=== PATIENT | female | born 1970 | race Caucasian/White ===

== ENCOUNTER 2017-06-04 15:44 | Inpatient (IN) | payer OTHER ==
[~2017-06-04] VITALS: Ht 160 cm; Wt 102.9 kg
[2017-06-04] MEDS ORDERED: SODIUM CHLORIDE 0.9% 1000ML 1,000 ML IV STA (15:54)
[2017-06-04] MEDS ORDERED: ONDANSETRON 8 MG/54 ML D5W IV STA (16:02)
[2017-06-04] MEDS ORDERED: HYDROmorphone INJ 1 MG/ML SYR IV PRN (16:15)
[2017-06-04] MEDS ORDERED: AMOX500C3 PO (16:19)
[2017-06-04] MEDS ORDERED: BND25 PO (16:19)
[2017-06-04] MEDS ORDERED: DICL50TA3 PO (16:19)
[2017-06-04] MEDS ORDERED: FURO-85 PO (16:19)
[2017-06-04] MEDS ORDERED: LISI-725 PO (16:19)
[2017-06-04] MEDS ORDERED: ATOR-22 PO (16:19)
[2017-06-04] MEDS ORDERED: ACET-1256 PO (16:21)
[2017-06-04 16:24] LABS: BASO % 0.3 %; BASO ABS # 0.04 K/uL (0-0.2); COMPLETE YES; EOS % 2.4 %; HEMATOCRIT 33.5 % (37-47); IG% 0.3 %; LYMPH % 17.1 %; MEAN CELL VOLUME 88.9 fL (80-100); MEAN CORPUSCULAR HGB CONC 34.9 g/dl (32-36); MEAN PLATELET VOLUME 9.8 fL (7.4-10.4); MONO % 4.9 %; PLATELET COUNT 318 K/uL (130-400); RED BLOOD COUNT 3.77 M/uL (4.2-5.4); WHITE BLOOD COUNT 14.02 K/uL (4.8-10.8)
[2017-06-04 16:41] LABS: ALT/SGPT 15 U/L (12-78); BLOOD UREA NITROGEN 54 mg/dl (7-18); BUN/CREATININE RATIO 13.2 (10-20); CALCIUM 10.1 mg/dl (8.5-10.1); CARBON DIOXIDE 25 mmol/L (21-32); CHLORIDE 101 mmol/L (98-107); GLUCOSE 154 mg/dl (70-99); POTASSIUM 4.1 mmol/L (3.5-5.1); SODIUM 135 mmol/L (136-145)
[2017-06-04 16:44] LABS: ALKALINE PHOSPHATASE 84 U/L (45-117); AST/SGOT 18 U/L (15-37)
[2017-06-04 16:45] LABS: URINE APPEARANCE CLEAR (CLEAR); URINE BILIRUBIN NEG (NEG); URINE COLOR YELLOW; URINE EPITHELIAL CELL AUTO >30 /lpf (0-5); URINE NITRITE NEG (NEG); URINE SPECIFIC GRAVITY 1.027 (1.000-1.030); UROBILINOGEN NEG (NEG); ZZUR CULT IF INDIC CLEAN CATCH NO
[2017-06-04 16:48] LABS: MANUAL MICROSCOPIC REQUIRED? NO; REVIEW REQ? NO
--- NOTE | 2017-06-04 17:25 | DIAGNOSTIC IMAGING REPORT ---
SOFT TISSUE NECK WITHOUT HISTORY: 46 years-old Female right lower dental infection, acute facial swelling COMPARISON: None available TECHNIQUE: Multiple axial CT images of the soft tissues of the neck were obtained without IV contrast. A dose lowering technique was used consistent with the principals of ALARA. FINDINGS: The nasopharynx, oropharynx and hypopharynx are patent. Parapharyngeal fat planes are symmetric without peritonsillar abscess. Multiple tonsilliths are seen bilaterally within the palatine tonsils. The submandibular and sublingual glands are unremarkable. There is mildly limited evaluation of the oral cavity secondary to streak artifact from dental amalgam hardware. Right lobe the thyroid is enlarged with a 1.2 x 0.7 cm slightly low attenuating nodule present. No pathologic-appearing adenopathy identified. No focal abscess is seen. Imaged lung apices are clear. Imaged intracranial structures demonstrate no gross abnormality. There is evidence of prior bilateral cataract repair. The mastoid air cells, middle ear cavities and imaged paranasal sinuses are clear. There is slight kyphotic curvature centered at C4-C5 with uncovertebral spurring and mild intervertebral disc space narrowing noted at this interspace. There is a small periapical cyst noted involving the left mandibular central incisor seen best on the sagittal MPR images no maxillary or mandibular erosions are identified. Mild degenerative changes involve the temporomandibular joints. No facial bone fracture identified. IMPRESSION: 1. Small periapical cyst involves the left mandibular central incisor without associated mandibular erosive changes or soft tissue abscess. 2. No adenopathy or focal soft tissue swelling. 3. Enlarged nodular right thyroid could be further evaluated with nonemergent outpatient follow-up ultrasound. 4. Mild degenerative changes at C4-C5. The above report was generated using voice recognition software. It may contain grammatical, syntax or spelling errors. Electronically signed by: Vaughn Dukes M.D. 06/04/2017 5:23 PM Dictated Date/Time: 06/04/2017 5:17 PM
--- NOTE | 2017-06-04 17:37 | DIAGNOSTIC IMAGING REPORT ---
ABD/PELVIS NO IV OR ORAL CONT HISTORY: 46 years-old Female upper abd pain, renal failure, on abx for dental infection COMPARISON: None available TECHNIQUE: Multiple axial CT images of the abdomen and pelvis were obtained without contrast. A dose lowering technique was used consistent with the principals of VIVIANE. FINDINGS: There is mild dependent bibasilar atelectasis. There is no pneumoperitoneum. The imaged inferior cardiac chambers are unremarkable trace pericardial effusion. Liver, spleen, gallbladder, pancreas and adrenal glands are within normal limits. There is a very atypical pattern of nodular perinephric edema which is oriented in a somewhat perpendicular distribution to the kidneys bilaterally. There is mild thickening of the perirenal fascia as well. Vascular calcifications are noted bilaterally involving the kidneys without definite renal calculi or hydronephrosis. Urinary bladder is unremarkable. Uterus and left adnexum are unremarkable. 2.6 x 1.9 cm cystic structure involves the right adnexum suggesting dominant follicle. There is mild atherosclerotic plaquing of the abdominal aorta. Periaortic lymph nodes are seen measuring up to 1.4 x 0.8 cm. Mildly prominent pericaval adenopathy is also seen, nonspecific. Small sliding-type hiatal hernia with partially intrathoracic stomach is noted. There is mild stranding along the proximal duodenum with apparent mild wall thickening adjacent mesenteric fat stranding. Mild yvette hepatis adenopathy is seen, 2.1 x 1.1 cm. There is no bowel obstruction. No evidence of acute appendicitis. Patient obesity is noted. The bones appear intact. IMPRESSION: 1. Mild circumferential wall thickening of the proximal duodenum with surrounding mesenteric fat stranding suggests duodenitis without obstruction. No significant inflammatory changes are seen surrounding the pancreas, however developing paraduodenal pancreatitis may have a similar appearance. Correlate with patient history and laboratory values. 2. Atypical nonspecific pattern of nodular perinephric edema oriented in a perpendicular distribution to the kidneys bilaterally without hydronephrosis or focal mass. 3. Mildly prominent periaortic, pericaval and yvette hepatis adenopathy is nonspecific and may be reactive. 4. 2.6 cm lesion of the right adnexum suggests dominant follicle. 5. Small sliding-type hiatal hernia with partially intrathoracic stomach. The above report was generated using voice recognition software. It may contain grammatical, syntax or spelling errors. Electronically signed by: Vaughn Dukes M.D. 06/04/2017 5:36 PM Dictated Date/Time: 06/04/2017 5:24 PM
--- NOTE | 2017-06-04 18:07 | EMERGENCY ROOM VISIT NOTE ---
History Report prepared by Chung: Manuel Walsh Under the Supervision of: Dr. Colin Ng M.D. First contact with patient: 15:54 Chief Complaint: ABDOMINAL PAIN Stated Complaint: STOMACH & TOOTH PAIN History of Present Illness The patient is a 46 year old female who presents to the Emergency Room with complaints of intermittent right jaw pain that started about a week ago. She rates her pain as a 6/10 in severity and reports that the pain radiates into her jaw, ear, and neck. She reports that she recently had crown surgery about a week ago. The patient admits that she had to had jaw sawed down. She states that since the surgery she has only been experiencing "twinges". The patient states that she went to the dentist at [facility] for a check up five days ago where she had an x-ray done. The patient states that the dentist gave her Clindamycin and pain medication since he thought she had an infection. She reports that she still had pain two days following her visit and went back two days ago. The patient states that she was then given Amoxicillin. She admits that she was still experiencing the stabbing sensation into her jaw intermittency. She states that the pain would be worsened if she laid down or ate something. She admits that she has been taking Tylenol for the pain. The patient states that starting yesterday, she started to experience abdominal pain and diarrhea. She admits that her episodes occur two to three times a day. She also reports episodes of vomiting and states that she has not been able to take her medications. The patient reports that she was fine this morning, but started to experience jaw pain around noon again. She denies prior abdominal pain or surgeries, headache, fevers, chills, diaphoresis, visual changes, neck pain, chest pain, breathing difficulties, nausea, back pain, melena, hematochezia, urinary symptoms, numbness, weakness, lymphadenopathy, rash, or other complaints. Source of History: patient Onset: a week ago Position: other (right jaw) Symptom Intensity: 6/10 Quality: stabbing Modifying Factors (Worsening): eating, other (laying down) Modifying Factors (Relieving): tylenol, other (pain medication) Associated Symptoms: + vomiting, + abdominal pain, + diarrhea Review of Systems See HPI for pertinent positives and negatives. A total of ten systems were reviewed and were otherwise negative. Past Medical & Surgical Medical Problems: (1) Diabetes (2) S/p dental crown (3) Tubal Surgical Problems: (1) H/O laparoscopy Family History Diabetes mellitus FH: myocardial infarction FHx: hyperlipidemia Hypertension Social History Smoking Status: Never Smoker Drug Use: none Marital Status: Housing Status: lives with family Occupation Status: employed Current/Historical Medications Scheduled Amoxicillin (Amoxil), 500 MG PO QID Atorvastatin (Lipitor), 20 MG PO QPM Diphenhydramine Hcl (Benadryl), 25 MG PO HS Furosemide (Lasix), 20 MG PO BID Lisinopril (Zestril), 20 MG PO DAILY Scheduled PRN Acetaminophen (Tylenol), 500-1,000 MG PO Q4 PRN for Pain Diclofenac (Voltaren), 50 MG PO TID PRN for Pain Allergies Coded Allergies: No Known Allergies (Verified , 06/04/17) Uncoded Allergies: N (Allergy, Unknown, 11/21/02) NO (Allergy, Unknown, 11/21/02) NONE (Allergy, Unknown, 11/21/02) Physical Exam Vital Signs Date Time Temp Pulse Resp B/P (MAP) Pulse Ox O2 Delivery O2 Flow Rate FiO2 06/04/17 17:19 63 16 108/66 98 Room Air 06/04/17 16:24 75 06/04/17 15:50 36.7 87 18 149/96 98 Room Air Physical Exam GENERAL: Awake, alert, uncomfortable appearing, in no distress HENT: Normocephalic, atraumatic. Oropharynx unremarkable. Mild swelling of right jaw. EYES: Normal conjunctiva. Sclera non-icteric. NECK: Supple. No nuchal rigidity. FROM. No JVD. RESPIRATORY: Clear to auscultation. CARDIAC: Regular rate, normal rhythm. Extremities warm and well perfused. Pulses equal. ABDOMEN: Soft, non-distended. Tenderness to palpation upon epigastric region. No rebound or guarding. No masses. RECTAL: Deferred. MUSCULOSKELETAL: Chest examination reveals no tenderness. The back is symmetrical on inspection without obvious abnormality. There is no CVA tenderness to palpation. No joint edema. LOWER EXTREMITIES: Calves are equal size bilaterally and non-tender. No edema. No discoloration. NEURO: Normal sensorium. No sensory or motor deficits noted. SKIN: No rash or jaundice noted. Medical Decision & Procedures ER Provider Diagnostic Interpretation: Radiology results as stated below per my review and radiologist interpretation SOFT TISSUE NECK WITHOUT HISTORY: 46 years-old Female right lower dental infection, acute facial swelling COMPARISON: None available TECHNIQUE: Multiple axial CT images of the soft tissues of the neck were obtained without IV contrast. A dose lowering technique was used consistent with the principals of VIVIANE. FINDINGS: The nasopharynx, oropharynx and hypopharynx are patent. Parapharyngeal fat planes are symmetric without peritonsillar abscess. Multiple tonsilliths are seen bilaterally within the palatine tonsils. The submandibular and sublingual glands are unremarkable. There is mildly limited evaluation of the oral cavity secondary to streak artifact from dental amalgam hardware. Right lobe the thyroid is enlarged with a 1.2 x 0.7 cm slightly low attenuating nodule present. No pathologic-appearing adenopathy identified. No focal abscess is seen. Imaged lung apices are clear. Imaged intracranial structures demonstrate no gross abnormality. There is evidence of prior bilateral cataract repair. The mastoid air cells, middle ear cavities and imaged paranasal sinuses are clear. There is slight kyphotic curvature centered at C4-C5 with uncovertebral spurring and mild intervertebral disc space narrowing noted at this interspace. There is a small periapical cyst noted involving the left mandibular central incisor seen best on the sagittal MPR images no maxillary or mandibular erosions are identified. Mild degenerative changes involve the temporomandibular joints. No facial bone fracture identified. IMPRESSION: 1. Small periapical cyst involves the left mandibular central incisor without associated mandibular erosive changes or soft tissue abscess. 2. No adenopathy or focal soft tissue swelling. 3. Enlarged nodular right thyroid could be further evaluated with nonemergent outpatient follow-up ultrasound. 4. Mild degenerative changes at C4-C5. The above report was generated using voice recognition software. It may contain grammatical, syntax or spelling errors. Electronically signed by: Vaughn Dukes M.D. 06/04/2017 5:23 PM Dictated Date/Time: 06/04/2017 5:17 PM ABD/PELVIS NO IV OR ORAL CONT HISTORY: 46 years-old Female upper abd pain, renal failure, on abx for dental infection COMPARISON: None available TECHNIQUE: Multiple axial CT images of the abdomen and pelvis were obtained without contrast. A dose lowering technique was used consistent with the principals of ALARA. FINDINGS: There is mild dependent bibasilar atelectasis. There is no pneumoperitoneum. The imaged inferior cardiac chambers are unremarkable trace pericardial effusion. Liver, spleen, gallbladder, pancreas and adrenal glands are within normal limits. There is a very atypical pattern of nodular perinephric edema which is oriented in a somewhat perpendicular distribution to the kidneys bilaterally. There is mild thickening of the perirenal fascia as well. Vascular calcifications are noted bilaterally involving the kidneys without definite renal calculi or hydronephrosis. Urinary bladder is unremarkable. Uterus and left adnexum are unremarkable. 2.6 x 1.9 cm cystic structure involves the right adnexum suggesting dominant follicle. There is mild atherosclerotic plaquing of the abdominal aorta. Periaortic lymph nodes are seen measuring up to 1.4 x 0.8 cm. Mildly prominent pericaval adenopathy is also seen, nonspecific. Small sliding-type hiatal hernia with partially intrathoracic stomach is noted. There is mild stranding along the proximal duodenum with apparent mild wall thickening adjacent mesenteric fat stranding. Mild yvette hepatis adenopathy is seen, 2.1 x 1.1 cm. There is no bowel obstruction. No evidence of acute appendicitis. Patient obesity is noted. The bones appear intact. IMPRESSION: 1. Mild circumferential wall thickening of the proximal duodenum with surrounding mesenteric fat stranding suggests duodenitis without obstruction. No significant inflammatory changes are seen surrounding the pancreas, however developing paraduodenal pancreatitis may have a similar appearance. Correlate with patient history and laboratory values. 2. Atypical nonspecific pattern of nodular perinephric edema oriented in a perpendicular distribution to the kidneys bilaterally without hydronephrosis or focal mass. 3. Mildly prominent periaortic, pericaval and yvette hepatis adenopathy is nonspecific and may be reactive. 4. 2.6 cm lesion of the right adnexum suggests dominant follicle. 5. Small sliding-type hiatal hernia with partially intrathoracic stomach. The above report was generated using voice recognition software. It may contain grammatical, syntax or spelling errors. Electronically signed by: Vaughn Dukes M.D. 06/04/2017 5:36 PM Dictated Date/Time: 06/04/2017 5:24 PM Laboratory Results 06/04/17 16:14 Red Blood Count 3.77, Mean Corpuscular Volume 88.9, Mean Corpuscular Hemoglobin 31.0, Mean Corpuscular Hemoglobin Concent 34.9, Mean Platelet Volume 9.8, Neutrophils (%) (Auto) 75.0, Lymphocytes (%) (Auto) 17.1, Monocytes (%) (Auto) 4.9, Eosinophils (%) (Auto) 2.4, Basophils (%) (Auto) 0.3, Neutrophils # (Auto) 10.53, Lymphocytes # (Auto) 2.40, Monocytes # (Auto) 0.68, Eosinophils # (Auto) 0.33, Basophils # (Auto) 0.04 06/04/17 16:14 Test 06/04/17 16:14 06/04/17 16:30 White Blood Count 14.02 K/uL (4.8-10.8) Red Blood Count 3.77 M/uL (4.2-5.4) Hemoglobin 11.7 g/dL (12.0-16.0) Hematocrit 33.5 % (37-47) Mean Corpuscular Volume 88.9 fL (80-100) Mean Corpuscular Hemoglobin 31.0 pg (25-34) Mean Corpuscular Hemoglobin Concent 34.9 g/dl (32-36) Platelet Count 318 K/uL (130-400) Mean Platelet Volume 9.8 fL (7.4-10.4) Neutrophils (%) (Auto) 75.0 % Lymphocytes (%) (Auto) 17.1 % Monocytes (%) (Auto) 4.9 % Eosinophils (%) (Auto) 2.4 % Basophils (%) (Auto) 0.3 % Neutrophils # (Auto) 10.53 K/uL (1.4-6.5) Lymphocytes # (Auto) 2.40 K/uL (1.2-3.4) Monocytes # (Auto) 0.68 K/uL (0.11-0.59) Eosinophils # (Auto) 0.33 K/uL (0-0.5) Basophils # (Auto) 0.04 K/uL (0-0.2) RDW Standard Deviation 38.9 fL (36.4-46.3) RDW Coefficient of Variation 12.0 % (11.5-14.5) Immature Granulocyte % (Auto) 0.3 % Immature Granulocyte # (Auto) 0.04 K/uL (0.00-0.02) Anion Gap 9.0 mmol/L (3-11) Est Creatinine Clear Calc Drug Dose 19.4 ml/min Estimated GFR () 14.1 Estimated GFR (Non- 12.2 BUN/Creatinine Ratio 13.2 (10-20) Calcium Level 10.1 mg/dl (8.5-10.1) Total Bilirubin 0.2 mg/dl (0.2-1) Direct Bilirubin < 0.1 mg/dl (0-0.2) Aspartate Amino Transf (AST/SGOT) 18 U/L (15-37) Alanine Aminotransferase (ALT/SGPT) 15 U/L (12-78) Alkaline Phosphatase 84 U/L (45-117) Total Protein 7.4 gm/dl (6.4-8.2) Albumin 3.2 gm/dl (3.4-5.0) Lipase 330 U/L (73-393) Urine Color YELLOW Urine Appearance CLEAR (CLEAR) Urine pH 5.0 (4.5-7.5) Urine Specific [place] 1.027 (1.000-1.030) Urine Protein TRACE (NEG) Urine Glucose (UA) NEG (NEG) Urine Ketones NEG (NEG) Urine Occult Blood NEG (NEG) Urine Nitrite NEG (NEG) Urine Bilirubin NEG (NEG) Urine Urobilinogen NEG (NEG) Urine Leukocyte Esterase SMALL (NEG) Urine WBC (Auto) 5-10 /hpf (0-5) Urine RBC (Auto) 0-4 /hpf (0-4) Urine Hyaline Casts (Auto) 1-5 /lpf (0-5) Urine Epithelial Cells (Auto) >30 /lpf (0-5) Urine Bacteria (Auto) NEG (NEG) Laboratory results reviewed by me Medications Administered Medications (Trade) Dose Ordered Sig/[place]ad Route Start Time Stop Time Status Last Admin Dose Admin Sodium Chloride 1,000 ml @ 999 mls/hr Q1H1M STAT IV 06/04/17 15:54 06/04/17 16:54 DC 06/04/17 16:19 999 MLS/HR Hydromorphone HCl (Dilaudid Inj) 1 mg Q15M PRN IV 06/04/17 16:15 06/18/17 16:14 06/04/17 16:22 1 MG Ondansetron HCl (Zofran 8mg Iv) 8 mg NOW STAT IV 06/04/17 16:02 06/04/17 16:07 DC 06/04/17 16:23 8 MG ECG Findings: no ectopy ED Course 1554: Ordered Sodium Chloride 1000 ml @ 999 mls/hr IV. 1557: The patient was evaluated in room A12B. A complete history and physical exam was performed. 1602: Ordered Ondansetron HCl 8 mg IV. 1615: Ordered Dilaudid Injection 1 mg IV. 1722: I reevaluated the patient and she is feeling better. I discussed the results and treatment plan. He agrees to further evaluation. 1727: I discussed the patients case with Dr. Jane [facility] Hospitalist. He understands the patients condition and agrees to accept the patient. The patient will be further evaluated. Medical Decision Triage Nursing notes reviewed. The patient's presentation and history were concerning for a dental infection, recent antibiotic use, nausea, vomiting, and abdominal pain. Etiologies such as C. difficile infection, dental abscess, colitis, appendicitis , diverticulitis, obstruction, inflammatory bowel disease, renal colic, PUD, biliary pathology, pancreatitis, mesenteric ischemia, aortic pathology, infections, genitourinary, UTI, perforated viscus, as well as others were entertained. The patient was evaluated. She was hydrated. She was treated Zofran and Dilaudid. She felt better with this. Imaging was ordered. The blood work revealed a mild leukocytosis. The patient's renal panel revealed acute renal failure with a creatinine of 4.1. Her electrolytes were unremarkable. Urinalysis did not show signs of infection. CT scan was performed and findings noted as above. The patient will need further evaluation and management in the hospital. [facility] The patient was evaluated in the Emergency Room for further treatment. Medication Reconcilliation Current Medication List: was personally reviewed by me Blood Pressure Screening Patient's blood pressure: Elevated blood pressure Blood pressure disposition: Referred to PCP Consults Time Called: 1726 Consulting Physician: Dr. Jane [facility] Hospitalist Returned Call: [phone] I discussed the patients case with Julia Coles. He understands the patients condition and agrees to accept the patient. The patient will be further evaluated. Impression Primary Impression: Acute renal failure Additional Impressions: Dentalgia Upper abdominal pain Duodenitis Scribe Attestation The scribe's documentation has been prepared under my direction and personally reviewed by me in its entirety. I confirm that the note above accurately reflects all work, treatment, procedures, and medical decision making performed by me. Departure Information Dispostion Being Evaluated By Hospitalist Referrals Dorene Trotter D.O. (PCP) Patient Instructions [facility] Problem Qualifiers
[2017-06-04] MEDS ORDERED: INSPMPNVLG (18:29)
[2017-06-04] MEDS ORDERED: MoRPHine SULFATE 4 MG/ML 1 ML CARP\\VIAL IV PRN (18:30)
[2017-06-04] MEDS ORDERED: NovoLOG INSULIN PUMP SCH (18:30)
[2017-06-04] MEDS ORDERED: ONDANSETRON INJ 2 MG/ML 2 ML VIAL IV PRN (18:30)
--- NOTE | 2017-06-04 18:54 | History and Physical ---
History & Physical Date & Time of Service: Jun 04, 2017 at 18:32 Chief Complaint: Stomach & Tooth Pain Primary Care Physician: Dorene Trotter D.O. History of Present Illness Source: patient, spouse, clinic records, hospital records 46 yo F with CKD Stage III with baseline creatinine around 2 presents with one week of nausea, vomiting and severe tooth pain on her lower right mandible. The pain radiates up into her ear area. She had a root canal many months ago for a tooth infection in that spot and then underwent a crown placement 2-3 months ago. She was doing well until one week ago when she developed severe pain. She went back to the dentist and was examined and placed on clindamycin initially. After two days, she wasn't feeling any better and called back and was put on Amoxicillin instead. Shortly after this she developed nausea and vomiting and couldn't tolerate pills or much food. However, she has been to the [place] a couple of times this week and was able to eat a hoagie and some gas station food from [facility] [employer] in the last 48 hours. She reports vomiting and having some abdominal pain and diarrhea 2-3 times in the past 24 hours. She denies fevers or chills, has no ear pain, fullness or hearing loss, denies sore throat, eye symptoms, chest pain or shortness of breath. She has no neck swelling or pain present. She does report a mild frontal headache this morning which is now resolved. She denies any UTI symptoms of flank pain. She can't point to one spot where she has abdominal tenderness she just moreso states that she feels poorly because of the nausea. She denies blood in her stool. She is a diabetic on an insulin pump and reports that several days ago her sugars were in the 500s, but they have since come back into the normal range. She denies any cough or congestion. She reports having stopped her Lasix 5 days ago which is something she has taken over the past year for foot swelling. She also reports being put on synthroid 25 for a short time by Dr. Iyer, her inspector technician, but states she stopped it "because it was making me pee too much." Past Medical/Surgical History Medical Problems: (1) CKD (chronic kidney disease) stage 3, GFR 30-59 ml/min Status: Chronic (2) Diabetes Status: Chronic (3) HTN (hypertension) Status: Chronic (4) Hyperlipidemia Status: Chronic (5) Infection of tooth Permanent Comment: s/p root canal Status: Chronic (6) Obesity Status: Chronic (7) Retinopathy Status: Chronic (8) Tubal Status: Resolved (9) Tubal Status: Chronic (10) Vitamin D deficiency Status: Chronic Surgical Problems: (1) H/O dilation and curettage Status: Chronic (2) H/O laparoscopy Status: Resolved (3) History of arthroplasty of left knee Status: Chronic Family History Diabetes mellitus FH: myocardial infarction FHx: hyperlipidemia Hypertension Social History Smoking Status: Never Smoker Smokeless Tobacco Use: No Drug Use: none Marital Status: Occupational Status: employed Immunizations History of Influenza Vaccine: Yes Influenza Vaccine Date: Aug 19, 2016 History of Tetanus Vaccine?: Yes Tetanus Immunization Date: Oct 30, 2008 History of Pneumococcal: Yes Pneumococcal Date: Oct 30, 2008 History of Hepatitis B Vaccine: No Multi-Drug Resistant Organisms History of MDRO: No Allergies Coded Allergies: No Known Allergies (Verified , 06/04/17) Uncoded Allergies: N (Allergy, Unknown, 11/21/02) NO (Allergy, Unknown, 11/21/02) NONE (Allergy, Unknown, 11/21/02) Home Medications Scheduled Amoxicillin (Amoxil), 500 MG PO QID Atorvastatin (Lipitor), 20 MG PO QPM Diphenhydramine Hcl (Benadryl), 25 MG PO HS Furosemide (Lasix), 20 MG PO BID Insulin Aspart (novoLOG INSULIN PUMP ), 1 EA N/A UD Lisinopril (Zestril), 20 MG PO DAILY Scheduled PRN Acetaminophen (Tylenol), 500-1,000 MG PO Q4 PRN for Pain Diclofenac (Voltaren), 50 MG PO TID PRN for Pain Review of Systems At least ten systems reviewed and negative except as indicated in HPI. Physical Exam Vital Signs Date Time Temp Pulse Resp B/P (MAP) Pulse Ox O2 Delivery O2 Flow Rate FiO2 06/04/17 17:19 63 16 108/66 98 Room Air 06/04/17 16:24 75 06/04/17 15:50 36.7 87 18 149/96 98 Room Air GEN: Obese, in no acute distress, alert and appropriate HEENT: NC/AT, pupils are equal and round bilaterally, normal sclerae,MMM. Pharynx nonacute. No peridontal inflammation or drainage present. No TTP of cheek, TMJ or submandibular space. No LAD, no sinus TTP. Normal tongue. CARDIO: reg rate, S1/2 heard without m/g/r LUNGS: CTA bilaterally, no crackles, rales or wheezes, good diaphragmatic excursion ABD: soft, non-tender, non-distended, no rebound or guarding, no CVA tenderness , +BS EXTREMITY: RP and DP palpable 2+ bilat, no LE swelling or edema, extremities are warm and well-perfused NEURO: CN 2-12 grossly intact, no gross focal deficits. MUSC: 5/5 strength throughout, no focal deficits SKIN: warm and dry Diagnostics Laboratory Results 06/04/17 16:14 Red Blood Count 3.77, Mean Corpuscular Volume 88.9, Mean Corpuscular Hemoglobin 31.0, Mean Corpuscular Hemoglobin Concent 34.9, Mean Platelet Volume 9.8, Neutrophils (%) (Auto) 75.0, Lymphocytes (%) (Auto) 17.1, Monocytes (%) (Auto) 4.9, Eosinophils (%) (Auto) 2.4, Basophils (%) (Auto) 0.3, Neutrophils # (Auto) 10.53, Lymphocytes # (Auto) 2.40, Monocytes # (Auto) 0.68, Eosinophils # (Auto) 0.33, Basophils # (Auto) 0.04 06/04/17 16:14 Test 06/04/17 16:14 06/04/17 16:30 White Blood Count 14.02 K/uL (4.8-10.8) Red Blood Count 3.77 M/uL (4.2-5.4) Hemoglobin 11.7 g/dL (12.0-16.0) Hematocrit 33.5 % (37-47) Mean Corpuscular Volume 88.9 fL (80-100) Mean Corpuscular Hemoglobin 31.0 pg (25-34) Mean Corpuscular Hemoglobin Concent 34.9 g/dl (32-36) Platelet Count 318 K/uL (130-400) Mean Platelet Volume 9.8 fL (7.4-10.4) Neutrophils (%) (Auto) 75.0 % Lymphocytes (%) (Auto) 17.1 % Monocytes (%) (Auto) 4.9 % Eosinophils (%) (Auto) 2.4 % Basophils (%) (Auto) 0.3 % Neutrophils # (Auto) 10.53 K/uL (1.4-6.5) Lymphocytes # (Auto) 2.40 K/uL (1.2-3.4) Monocytes # (Auto) 0.68 K/uL (0.11-0.59) Eosinophils # (Auto) 0.33 K/uL (0-0.5) Basophils # (Auto) 0.04 K/uL (0-0.2) RDW Standard Deviation 38.9 fL (36.4-46.3) RDW Coefficient of Variation 12.0 % (11.5-14.5) Immature Granulocyte % (Auto) 0.3 % Immature Granulocyte # (Auto) 0.04 K/uL (0.00-0.02) Anion Gap 9.0 mmol/L (3-11) Est Creatinine Clear Calc Drug Dose 19.4 ml/min Estimated GFR () 14.1 Estimated GFR (Non- 12.2 BUN/Creatinine Ratio 13.2 (10-20) Calcium Level 10.1 mg/dl (8.5-10.1) Total Bilirubin 0.2 mg/dl (0.2-1) Direct Bilirubin < 0.1 mg/dl (0-0.2) Aspartate Amino Transf (AST/SGOT) 18 U/L (15-37) Alanine Aminotransferase (ALT/SGPT) 15 U/L (12-78) Alkaline Phosphatase 84 U/L (45-117) Total Protein 7.4 gm/dl (6.4-8.2) Albumin 3.2 gm/dl (3.4-5.0) Lipase 330 U/L (73-393) Urine Color YELLOW Urine Appearance CLEAR (CLEAR) Urine pH 5.0 (4.5-7.5) Urine Specific [place] 1.027 (1.000-1.030) Urine Protein TRACE (NEG) Urine Glucose (UA) NEG (NEG) Urine Ketones NEG (NEG) Urine Occult Blood NEG (NEG) Urine Nitrite NEG (NEG) Urine Bilirubin NEG (NEG) Urine Urobilinogen NEG (NEG) Urine Leukocyte Esterase SMALL (NEG) Urine WBC (Auto) 5-10 /hpf (0-5) Urine RBC (Auto) 0-4 /hpf (0-4) Urine Hyaline Casts (Auto) 1-5 /lpf (0-5) Urine Epithelial Cells (Auto) >30 /lpf (0-5) Urine Bacteria (Auto) NEG (NEG) Results Past 24 Hours Test 06/04/17 16:14 06/04/17 16:30 Range/Units White Blood Count 14.02 4.8-10.8 K/uL Red Blood Count 3.77 4.2-5.4 M/uL Hemoglobin 11.7 12.0-16.0 g/dL Hematocrit 33.5 37-47 % Mean Corpuscular Volume 88.9 80-100 fL Mean Corpuscular Hemoglobin 31.0 25-34 pg Mean Corpuscular Hemoglobin Concent 34.9 32-36 g/dl Platelet Count 318 130-400 K/uL Mean Platelet Volume 9.8 7.4-10.4 fL Neutrophils (%) (Auto) 75.0 % Lymphocytes (%) (Auto) 17.1 % Monocytes (%) (Auto) 4.9 % Eosinophils (%) (Auto) 2.4 % Basophils (%) (Auto) 0.3 % Neutrophils # (Auto) 10.53 1.4-6.5 K/uL Lymphocytes # (Auto) 2.40 1.2-3.4 K/uL Monocytes # (Auto) 0.68 0.11-0.59 K/uL Eosinophils # (Auto) 0.33 0-0.5 K/uL Basophils # (Auto) 0.04 0-0.2 K/uL RDW Standard Deviation 38.9 36.4-46.3 fL RDW Coefficient of Variation 12.0 11.5-14.5 % Immature Granulocyte % (Auto) 0.3 % Immature Granulocyte # (Auto) 0.04 0.00-0.02 K/uL Sodium Level 135 136-145 mmol/L Potassium Level 4.1 3.5-5.1 mmol/L Chloride Level 101 98-107 mmol/L Carbon Dioxide Level 25 21-32 mmol/L Anion Gap 9.0 3-11 mmol/L Blood Urea Nitrogen 54 7-18 mg/dl Creatinine 4.10 0.60-1.20 mg/dl Est Creatinine Clear Calc Drug Dose 19.4 ml/min Estimated GFR () 14.1 Estimated GFR (Non- 12.2 BUN/Creatinine Ratio 13.2 10-20 Random Glucose 154 70-99 mg/dl Calcium Level 10.1 8.5-10.1 mg/dl Total Bilirubin 0.2 0.2-1 mg/dl Direct Bilirubin < 0.1 0-0.2 mg/dl Aspartate Amino Transf (AST/SGOT) 18 15-37 U/L Alanine Aminotransferase (ALT/SGPT) 15 12-78 U/L Alkaline Phosphatase 84 45-117 U/L Total Protein 7.4 6.4-8.2 gm/dl Albumin 3.2 3.4-5.0 gm/dl Lipase 330 73-393 U/L Urine Color YELLOW Urine Appearance CLEAR CLEAR Urine pH 5.0 4.5-7.5 Urine Specific [place] 1.027 1.000-1.030 Urine Protein TRACE NEG Urine Glucose (UA) NEG NEG Urine Ketones NEG NEG Urine Occult Blood NEG NEG Urine Nitrite NEG NEG Urine Bilirubin NEG NEG Urine Urobilinogen NEG NEG Urine Leukocyte Esterase SMALL NEG Urine WBC (Auto) 5-10 0-5 /hpf Urine RBC (Auto) 0-4 0-4 /hpf Urine Hyaline Casts (Auto) 1-5 0-5 /lpf Urine Epithelial Cells (Auto) >30 0-5 /lpf Urine Bacteria (Auto) NEG NEG Diagnostic Radiology ABD/PELVIS NO IV OR ORAL CONT HISTORY: 46 years-old Female upper abd pain, renal failure, on abx for dental infection COMPARISON: None available TECHNIQUE: Multiple axial CT images of the abdomen and pelvis were obtained without contrast. A dose lowering technique was used consistent with the principals of VIVIANE. FINDINGS: There is mild dependent bibasilar atelectasis. There is no pneumoperitoneum. The imaged inferior cardiac chambers are unremarkable trace pericardial effusion. Liver, spleen, gallbladder, pancreas and adrenal glands are within normal limits. There is a very atypical pattern of nodular perinephric edema which is oriented in a somewhat perpendicular distribution to the kidneys bilaterally. There is mild thickening of the perirenal fascia as well. Vascular calcifications are noted bilaterally involving the kidneys without definite renal calculi or hydronephrosis. Urinary bladder is unremarkable. Uterus and left adnexum are unremarkable. 2.6 x 1.9 cm cystic structure involves the right adnexum suggesting dominant follicle. There is mild atherosclerotic plaquing of the abdominal aorta. Periaortic lymph nodes are seen measuring up to 1.4 x 0.8 cm. Mildly prominent pericaval adenopathy is also seen, nonspecific. Small sliding-type hiatal hernia with partially intrathoracic stomach is noted. There is mild stranding along the proximal duodenum with apparent mild wall thickening adjacent mesenteric fat stranding. Mild yvette hepatis adenopathy is seen, 2.1 x 1.1 cm. There is no bowel obstruction. No evidence of acute appendicitis. Patient obesity is noted. The bones appear intact. IMPRESSION: 1. Mild circumferential wall thickening of the proximal duodenum with surrounding mesenteric fat stranding suggests duodenitis without obstruction. No significant inflammatory changes are seen surrounding the pancreas, however developing paraduodenal pancreatitis may have a similar appearance. Correlate with patient history and laboratory values. 2. Atypical nonspecific pattern of nodular perinephric edema oriented in a perpendicular distribution to the kidneys bilaterally without hydronephrosis or focal mass. 3. Mildly prominent periaortic, pericaval and yvette hepatis adenopathy is nonspecific and may be reactive. 4. 2.6 cm lesion of the right adnexum suggests dominant follicle. 5. Small sliding-type hiatal hernia with partially intrathoracic stomach. The above report was generated using voice recognition software. It may contain grammatical, syntax or spelling errors. SOFT TISSUE NECK WITHOUT HISTORY: 46 years-old Female right lower dental infection, acute facial swelling COMPARISON: None available TECHNIQUE: Multiple axial CT images of the soft tissues of the neck were obtained without IV contrast. A dose lowering technique was used consistent with the principals of ALARA. FINDINGS: The nasopharynx, oropharynx and hypopharynx are patent. Parapharyngeal fat planes are symmetric without peritonsillar abscess. Multiple tonsilliths are seen bilaterally within the palatine tonsils. The submandibular and sublingual glands are unremarkable. There is mildly limited evaluation of the oral cavity secondary to streak artifact from dental amalgam hardware. Right lobe the thyroid is enlarged with a 1.2 x 0.7 cm slightly low attenuating nodule present. No pathologic-appearing adenopathy identified. No focal abscess is seen. Imaged lung apices are clear. Imaged intracranial structures demonstrate no gross abnormality. There is evidence of prior bilateral cataract repair. The mastoid air cells, middle ear cavities and imaged paranasal sinuses are clear. There is slight kyphotic curvature centered at C4-C5 with uncovertebral spurring and mild intervertebral disc space narrowing noted at this interspace. There is a small periapical cyst noted involving the left mandibular central incisor seen best on the sagittal MPR images no maxillary or mandibular erosions are identified. Mild degenerative changes involve the temporomandibular joints. No facial bone fracture identified. IMPRESSION: 1. Small periapical cyst involves the left mandibular central incisor without associated mandibular erosive changes or soft tissue abscess. 2. No adenopathy or focal soft tissue swelling. 3. Enlarged nodular right thyroid could be further evaluated with nonemergent outpatient follow-up ultrasound. 4. Mild degenerative changes at C4-C5. Impression Assessment and Plan 46 yo F with CKD Stage III presents with acute tooth pain and nausea, vomiting and diarrhea in the setting of lisinopril, lasix and diclofenac use. Admitted for acute renal failure 1. Acute renal failure-multifactorial with dehydration from vomiting, lasix use , lisinopril use and diclofenac use in recent days to control the pain. Will continue with IVF, bowel rest/clears if tolerated, antiemetics, T3 or morphine for severe pain (avoid NSAIDs), hold lisinopril and Lasix. Will consult Nephrology who sees her as outpatient with atypical finding on CT scan. Appreciate thoughts on this. 2. Acute gastroenteritis-uncertain cause but also likely multifactorial in setting of LIZZY and recent fair food. Duodenitis seen on CT scan but no pain on exam. As above, cont with supportive care and clear liquids at this time 3. DMI-on insulin pump and well controlled. Contacted pharmacy who is aware she will be using this as inpatient. 4. HLP-cont statin 5. Chronic insomnia-uses Benadryl 25mg every night, cont while inpatient 6. Thyroid fummgl-jyxuse-by with outpatient ultrasound DVT proph-heparin FULL CODE Dispo-at least two midnights. Kaylin Melendez DO [facility] Med/Surg Resuscitation Status FULL RESUSCITATION VTE Prophylaxis VTE Risk Assessment Done? Y/N: Yes Risk Level: Moderate Given or contraindicated: Unfractionated heparin SQ
[2017-06-04 19:39] LABS: INR 0.9 (0.9-1.1); PARTIAL THROMBOPLASTIN RATIO 0.9; PROTHROMBIN TIME (PATIENT) 9.7 SECONDS (9.0-12.0)
[2017-06-04] MEDS ORDERED: GLUCOSE 10 TABS/TUBE PO PRN (20:30)
[2017-06-04] MEDS ORDERED: GLUCAGON FOR INJ 1 MG VIAL SQ PRN (20:30)
[2017-06-04] MEDS ORDERED: DEXTROSE 50% 50 ML SYR IV PRN (20:30)
[2017-06-04] MEDS ORDERED: GLUCOSE 40% GEL 15 GM TUBE PO PRN (20:30)
[2017-06-04] MEDS ORDERED: INSULIN ASPART 100 UNITS/ML VIAL SC PRN ×2 (20:30→23:15)
[2017-06-04] MEDS: NovoLOG INSULIN PUMP SCH (21:00)
[2017-06-04] MEDS: SODIUM CHLORIDE 0.9% 1000ML 1,000 ML IV SCH (21:01)
[2017-06-04] MEDS: ATORVASTATIN 20 MG TAB PO SCH (21:04)
[2017-06-04 21:16] VITALS: BP 93/66; PULSE 73; TEMP 36.4; O2SAT 96
[2017-06-04 21:26] VITALS: Ht 160 cm; Wt 102.9 kg
[2017-06-04 21:27] VITALS: BP 93/66; PULSE 73; TEMP 36.4; O2SAT 98
[2017-06-04] MEDS: HEPARIN SOD 5000 UNIT/0.5 ML CARP SQ SCH (22:22)
[2017-06-04] MEDS: ACETAMINOPHEN/CODEINE 300/30MG TAB PO PRN (22:24)
[2017-06-05 00:08] VITALS: BP 118/77; PULSE 75; TEMP 36.7; O2SAT 97
[2017-06-05 03:44] VITALS: BP 93/61; PULSE 73; TEMP 36.6; O2SAT 97
[2017-06-05] MEDS: SODIUM CHLORIDE 0.9% 1000ML 1,000 ML IV SCH ×2 (04:15→17:13)
[2017-06-05] MEDS: HEPARIN SOD 5000 UNIT/0.5 ML CARP SQ SCH ×3 (06:28→21:50)
[2017-06-05] MEDS: ACETAMINOPHEN/CODEINE 300/30MG TAB PO PRN (06:30)
[2017-06-05 06:36] LABS: HEMATOCRIT 29.1 % (37-47); MEAN CELL VOLUME 90.1 fL (80-100); MEAN CORPUSCULAR HGB CONC 34.4 g/dl (32-36); MEAN PLATELET VOLUME 10.1 fL (7.4-10.4); PLATELET COUNT 256 K/uL (130-400); RED BLOOD COUNT 3.23 M/uL (4.2-5.4); WHITE BLOOD COUNT 9.96 K/uL (4.8-10.8)
[2017-06-05 06:53] LABS: BUN/CREATININE RATIO 13.1 (10-20); CALCIUM 8.5 mg/dl (8.5-10.1); MAGNESIUM 1.7 mg/dl (1.8-2.4)
[2017-06-05 08:03] VITALS: BP 97/65; PULSE 62; TEMP 36.7; O2SAT 96
[2017-06-05] MEDS: NovoLOG INSULIN PUMP SCH ×4 (08:21→20:43)
[2017-06-05] MEDS: MAGNESIUM SULFATE 1GM / D5W 1 GM in PREMIXED IN D5W 100 ML IV SCH ×2 (10:39→11:56)
[2017-06-05 11:30] VITALS: BP 101/67; PULSE 73; TEMP 36.7; O2SAT 97
[2017-06-05] MEDS ORDERED: BENZOCAINE 20% (ORAJEL) 11.9 GM TUBE MT PRN (13:30)
[2017-06-05] MEDS: ACETAMINOPHEN 500 MG TAB PO SCH ×2 (15:18→21:48)
[2017-06-05 15:41] VITALS: BP 90/62; PULSE 69; TEMP 36.8; O2SAT 95
--- NOTE | 2017-06-05 17:06 | NEPHROLOGY CONSULTATION ---
DATE OF CONSULTATION: 06/05/2017 ATTENDING OF RECORD: Dr. Melendez. REASON FOR CONSULTATION: LIZZY. HISTORY OF PRESENT ILLNESS: This is a 46-year-old female with CKD stage III from diabetes with a baseline creatinine around 2 who has been dealing with a tooth pain for the past several weeks, initially treated with clindamycin and then switched to amoxicillin. Patient was having some nausea, fatigue, pain in the jaw and mild diarrhea. The pain was not improving and came in to Emergency Room yesterday. The patient did stop her diuretic during this time and was found to have a creatinine of 4.1. The patient treated with IV fluids and her creatinine this morning was down to 3. The patient is comfortable, was on clear liquid diet, which has been advanced and had a hamburger this afternoon and is starting to feel better. Her magnesium level was mildly low at 1.7, was repleted with magnesium supplementation today. Albumin level was low at 3.2. White count was elevated at 14,000 and is down to 9.96. Abdominal pelvis CT was done which showed mild circumferential wall thickening of the proximal duodenum with surrounding mesenteric fat stranding suggesting duodenitis without obstruction. There was an apical and nonspecific pattern of nodular perinephric edema without hydronephrosis or focal mass. There is a 2.6 cm right adnexal cyst and a dominant follicle as well as a hiatal hernia. The patient denies taking any pain medication other than Tylenol and diclofenac. REVIEW OF SYSTEMS: No fevers, no chills. Positive jaw pain. No shortness of breath. No chest pain. Positive nausea, no vomiting. Positive mild diarrhea. Positive upset stomach. No dysuria or hematuria. No rash or itching, no blurry vision, no dysphagia. All other review of systems otherwise negative. PAST MEDICAL HISTORY: CKD stage III, diabetes, hypertension, hyperlipidemia. PAST SURGICAL HISTORY: Left knee scope, D&C. FAMILY HISTORY: Significant for diabetes. SOCIAL HISTORY: No smoking, no alcohol, no drugs. and lives at home. HOME MEDICATIONS: Significant for Lasix which she stopped for the past week as well as lisinopril, which she is still taking. CURRENT MEDICATIONS: Heparin 5000 units subQ q. 8, Lipitor 20 mg at night. PHYSICAL EXAMINATION: VITAL SIGNS: Temperature 36.8, pulse 69, respiratory rate 18, blood pressure 90/62, satting 95% on room air. GENERAL: Awake, alert, oriented x3. EYES: No scleral icterus. HEENT: Mucous membranes are dry. NECK: Supple. PULMONARY: Clear to auscultation. CARDIAC: Regular rate and rhythm. ABDOMEN: Bowel sounds positive, soft, nontender. EXTREMITIES: No clubbing, cyanosis or edema. NEUROLOGICALLY: Nonfocal. DERM: No rash or ulcers noted. LABORATORY DATA: White count is 9, H&H 10 and 29, platelet count is 256. Sodium is 139, potassium is 4, chloride is 108, bicarb is 23, BUN is 39, creatinine is 3, glucose 99, calcium 8.5, mag is 1.7. INR is 0.9. UA with small leukocyte esterase, 5-10 wbc's, trace protein. IMPRESSION AND PLAN: 1. Acute kidney injury on the setting of chronic kidney disease stage III with a creatinine that is improving with IV fluids. IV fluids have been stopped. I feel the patient would benefit from another liter of IV fluids. We will restart normal saline at 80 mL an hour and recheck lab work tomorrow. Likely will be able stop IV fluids tomorrow. The patient appears to be eating and drinking better. Currently, off antibiotics, defer antibiotic management to primary hospitalist. For now, would continue low rate of IV fluids and monitor for signs of volume overload. Lungs are clear to auscultation and not requiring any oxygen at this time, would continue normal saline and repeat lab work in the morning. I appreciate the consultation. EVANGELINA
[2017-06-05 19:25] VITALS: BP 118/76; PULSE 73; TEMP 36.8; O2SAT 96
[2017-06-05] MEDS: ATORVASTATIN 20 MG TAB PO SCH (20:42)
--- NOTE | 2017-06-05 23:28 | Progress Note ---
Medicine Progress Note Date & Time of Visit: Jun 05, 2017 at 13:28. Subjective tolerating PO pain present and sharp, shooting pain to her ear intermittent lasting about 5 minutes and is very infrequent she notes that the T3 is not working at all. denies chest pain or shortness of breath. Objective Last 8 Hrs Date Time Temp Pulse Resp B/P (MAP) Pulse Ox O2 Delivery O2 Flow Rate FiO2 06/05/17 11:30 36.7 73 18 101/67 (78) 97 Room Air 06/05/17 08:03 36.7 62 18 97/65 (76) 96 Room Air 06/05/17 08:00 Room Air Physical Exam: GEN:obese, in no acute distress, alert and appropriate HEENT: NC/AT, MMM, normal sclerae, moving TMJ/talking/chewing without pain CARDIO: reg rate, S1/2 heard without m/g/r LUNGS: CTA bilaterally, no crackles, rales or wheezes, good diaphragmatic excursion ABD: soft, non-tender, non-distended, no rebound or guarding, +BS EXTREMITY: RP and DP palpable 2+ bilat, no LE swelling or edema, extremities are warm and well-perfused NEURO: CN 2-12 grossly intact MUSC: 5/5 strength throughout, no focal deficits SKIN: warm and dry Laboratory Results: 06/05/17 05:28 06/05/17 05:28 Test 06/04/17 16:14 06/04/17 16:30 06/05/17 05:28 06/05/17 19:51 Immature Granulocyte % (Auto) 0.3 % White Blood Count 14.02 K/uL (4.8-10.8) Red Blood Count 3.77 M/uL (4.2-5.4) 3.23 M/uL (4.2-5.4) Hemoglobin 11.7 g/dL (12.0-16.0) Hematocrit 33.5 % (37-47) Mean Corpuscular Volume 88.9 fL (80-100) 90.1 fL (80-100) Mean Corpuscular Hemoglobin 31.0 pg (25-34) 31.0 pg (25-34) Mean Corpuscular Hemoglobin Concent 34.9 g/dl (32-36) 34.4 g/dl (32-36) Platelet Count 318 K/uL (130-400) Mean Platelet Volume 9.8 fL (7.4-10.4) 10.1 fL (7.4-10.4) Neutrophils (%) (Auto) 75.0 % Lymphocytes (%) (Auto) 17.1 % Monocytes (%) (Auto) 4.9 % Eosinophils (%) (Auto) 2.4 % Basophils (%) (Auto) 0.3 % Neutrophils # (Auto) 10.53 K/uL (1.4-6.5) Lymphocytes # (Auto) 2.40 K/uL (1.2-3.4) Monocytes # (Auto) 0.68 K/uL (0.11-0.59) Eosinophils # (Auto) 0.33 K/uL (0-0.5) Basophils # (Auto) 0.04 K/uL (0-0.2) Immature Granulocyte # (Auto) 0.04 K/uL (0.00-0.02) Prothrombin Time 9.7 SECONDS (9.0-12.0) Prothromb Time International Ratio 0.9 (0.9-1.1) Activated Partial Thromboplast Time 23.4 SECONDS (21.0-31.0) Partial Thromboplastin Ratio 0.9 Total Bilirubin 0.2 mg/dl (0.2-1) Direct Bilirubin < 0.1 mg/dl (0-0.2) Aspartate Amino Transf (AST/SGOT) 18 U/L (15-37) Alanine Aminotransferase (ALT/SGPT) 15 U/L (12-78) Alkaline Phosphatase 84 U/L (45-117) Total Protein 7.4 gm/dl (6.4-8.2) Albumin 3.2 gm/dl (3.4-5.0) Lipase 330 U/L (73-393) Urine Color YELLOW Urine Appearance CLEAR (CLEAR) Urine pH 5.0 (4.5-7.5) Urine Specific Banks 1.027 (1.000-1.030) Urine Protein TRACE (NEG) Urine Glucose (UA) NEG (NEG) Urine Ketones NEG (NEG) Urine Occult Blood NEG (NEG) Urine Nitrite NEG (NEG) Urine Bilirubin NEG (NEG) Urine Urobilinogen NEG (NEG) Urine Leukocyte Esterase SMALL (NEG) Urine WBC (Auto) 5-10 /hpf (0-5) Urine RBC (Auto) 0-4 /hpf (0-4) Urine Hyaline Casts (Auto) 1-5 /lpf (0-5) Urine Epithelial Cells (Auto) >30 /lpf (0-5) Urine Bacteria (Auto) NEG (NEG) RDW Standard Deviation 39.9 fL (36.4-46.3) RDW Coefficient of Variation 12.1 % (11.5-14.5) Anion Gap 8.0 mmol/L (3-11) Est Creatinine Clear Calc Drug Dose 26.6 ml/min Estimated GFR () 20.6 Estimated GFR (Non- 17.8 BUN/Creatinine Ratio 13.1 (10-20) Calcium Level 8.5 mg/dl (8.5-10.1) Magnesium Level 1.7 mg/dl (1.8-2.4) Bedside Glucose 70 mg/dl (70-90) Last 24 Hours Test 06/04/17 16:14 06/04/17 16:30 06/05/17 05:28 06/05/17 06:39 White Blood Count 14.02 K/uL 9.96 K/uL Red Blood Count 3.77 M/uL 3.23 M/uL Hemoglobin 11.7 g/dL 10.0 g/dL Hematocrit 33.5 % 29.1 % Mean Corpuscular Volume 88.9 fL 90.1 fL Mean Corpuscular Hemoglobin 31.0 pg 31.0 pg Mean Corpuscular Hemoglobin Concent 34.9 g/dl 34.4 g/dl Platelet Count 318 K/uL 256 K/uL Mean Platelet Volume 9.8 fL 10.1 fL Neutrophils (%) (Auto) 75.0 % Lymphocytes (%) (Auto) 17.1 % Monocytes (%) (Auto) 4.9 % Eosinophils (%) (Auto) 2.4 % Basophils (%) (Auto) 0.3 % Neutrophils # (Auto) 10.53 K/uL Lymphocytes # (Auto) 2.40 K/uL Monocytes # (Auto) 0.68 K/uL Eosinophils # (Auto) 0.33 K/uL Basophils # (Auto) 0.04 K/uL RDW Standard Deviation 38.9 fL 39.9 fL RDW Coefficient of Variation 12.0 % 12.1 % Immature Granulocyte % (Auto) 0.3 % Immature Granulocyte # (Auto) 0.04 K/uL Prothrombin Time 9.7 SECONDS Prothromb Time International Ratio 0.9 Activated Partial Thromboplast Time 23.4 SECONDS Partial Thromboplastin Ratio 0.9 Sodium Level 135 mmol/L 139 mmol/L Potassium Level 4.1 mmol/L 4.0 mmol/L Chloride Level 101 mmol/L 108 mmol/L Carbon Dioxide Level 25 mmol/L 23 mmol/L Anion Gap 9.0 mmol/L 8.0 mmol/L Blood Urea Nitrogen 54 mg/dl 39 mg/dl Creatinine 4.10 mg/dl 3.00 mg/dl Est Creatinine Clear Calc Drug Dose 19.4 ml/min 26.6 ml/min Estimated GFR () 14.1 20.6 Estimated GFR (Non- 12.2 17.8 BUN/Creatinine Ratio 13.2 13.1 Random Glucose 154 mg/dl 99 mg/dl Calcium Level 10.1 mg/dl 8.5 mg/dl Total Bilirubin 0.2 mg/dl Direct Bilirubin < 0.1 mg/dl Aspartate Amino Transf (AST/SGOT) 18 U/L Alanine Aminotransferase (ALT/SGPT) 15 U/L Alkaline Phosphatase 84 U/L Total Protein 7.4 gm/dl Albumin 3.2 gm/dl Lipase 330 U/L Urine Color YELLOW Urine Appearance CLEAR Urine pH 5.0 Urine Specific Banks 1.027 Urine Protein TRACE Urine Glucose (UA) NEG Urine Ketones NEG Urine Occult Blood NEG Urine Nitrite NEG Urine Bilirubin NEG Urine Urobilinogen NEG Urine Leukocyte Esterase SMALL Urine WBC (Auto) 5-10 /hpf Urine RBC (Auto) 0-4 /hpf Urine Hyaline Casts (Auto) 1-5 /lpf Urine Epithelial Cells (Auto) >30 /lpf Urine Bacteria (Auto) NEG Magnesium Level 1.7 mg/dl Bedside Glucose 79 mg/dl Test 06/05/17 07:43 06/05/17 11:33 Bedside Glucose 72 mg/dl 119 mg/dl Assessment & Plan 46 yo F with CKD Stage III presents with acute tooth pain and nausea, vomiting and diarrhea in the setting of lisinopril, lasix and diclofenac use. Admitted for acute renal failure. Overnight T3 didn't help much and morphine was too strong. Orajel given instead. 1. Acute renal failure-multifactorial with dehydration from vomiting, lasix use , lisinopril use and diclofenac use in recent days to control the pain. Will continue with IVF, bowel rest/clears if tolerated, antiemetics, T3 or morphine for severe pain (avoid NSAIDs), hold lisinopril and Lasix. Nephro following. 2. Tooth pain- no signs or symptoms of dental infection. Morphine and T3 not controlling the pain. Will schedule Tylenol to stay ahead of pain and use Orajel at bedside when she becomes very sore. 2. Acute gastroenteritis-uncertain cause but also likely multifactorial in setting of LIZZY and recent fair food. Duodenitis seen on CT scan but no pain on exam. Advanced diet to solids, dc's IVF. 3. DMI-on insulin pump and well controlled. Cont pump use while inpatient. 4. HLP-cont statin 5. Chronic insomnia-uses Benadryl 25mg every night, cont while inpatient 6. Thyroid [id number] with outpatient ultrasound 7. Anemia of chronic disease-no indication for acute transfusion at this time. DVT proph-heparin FULL CODE Dispo-at least two midnights. Current Inpatient Medications: Current Inpatient Medications Medications (Trade) Dose Ordered Sig/Soledad Route Start Time Stop Time Status Last Admin Dose Admin Heparin Sodium (Porcine) (Heparin Sq 5000 Unit/0.5ml) 5,000 unit Q8H SQ 06/04/17 22:00 07/04/17 21:59 06/05/17 06:28 5,000 UNIT Ondansetron HCl (Zofran Inj) 4 mg Q6H PRN IV 06/04/17 18:30 07/04/17 18:29 06/04/17 23:28 4 MG Acetaminophen/ Codeine Phosphate (Tylenol w/ Codeine #3 Tab) 1 tab Q6H PRN PO 06/04/17 18:30 07/04/17 18:29 06/05/17 06:30 1 TAB Morphine Sulfate (MoRPHine SULFATE INJ) 4 mg Q4H PRN IV 06/04/17 18:30 06/18/17 18:29 06/04/17 23:29 4 MG Atorvastatin Calcium (Lipitor Tab) 20 mg QPM PO 06/04/17 21:00 07/04/17 20:59 06/04/17 21:04 20 MG Diphenhydramine HCl (Benadryl Cap) 25 mg HS PO 06/04/17 21:00 07/04/17 20:59 06/04/17 21:06 25 MG Insulin Aspart (novoLOG INSULIN PUMP) 1 ea ACHS N/A 06/04/17 21:00 07/04/17 20:59 06/05/17 12:53 1 EA Glucose (Glucose 40% Gel) UD PRN PO 06/04/17 20:30 07/04/17 20:29 Glucose (Glucose Chew Tab) 1 tabs UD PRN PO 06/04/17 20:30 07/04/17 20:29 Glucagon (Glucagon Inj) 1 mg UD PRN SQ 06/04/17 20:30 07/04/17 20:29 Dextrose (Dextrose 50% 50ML Syringe) 50 ml UD PRN IV 06/04/17 20:30 07/04/17 20:29 Insulin Aspart (novoLOG ASPART) SLIDING SCALE PRN PRN SC 06/04/17 23:15 07/04/17 23:14
[2017-06-06] VITALS (7 sets, daily range): BP systolic 104–139; BP diastolic 63–83; PULSE 67–85; TEMP 36.6–36.9; O2SAT 95–100
[2017-06-06] MEDS: SODIUM CHLORIDE 0.9% 1000ML 1,000 ML IV SCH ×2 (04:05→17:01)
[2017-06-06] MEDS: ACETAMINOPHEN 500 MG TAB PO SCH ×3 (06:10→21:03)
[2017-06-06] MEDS: HEPARIN SOD 5000 UNIT/0.5 ML CARP SQ SCH ×3 (06:13→21:04)
[2017-06-06 07:40] LABS: HEMATOCRIT 29.4 % (37-47); MEAN CELL VOLUME 91.3 fL (80-100); MEAN CORPUSCULAR HEMOGLOBIN 30.7 pg (25-34); MEAN CORPUSCULAR HGB CONC 33.7 g/dl (32-36); PLATELET COUNT 235 K/uL (130-400); RED BLOOD COUNT 3.22 M/uL (4.2-5.4); WHITE BLOOD COUNT 7.75 K/uL (4.8-10.8)
[2017-06-06 08:09] LABS: BUN/CREATININE RATIO 10.9 (10-20); CALCIUM 8.1 mg/dl (8.5-10.1); CREATININE 2.6 mg/dl (0.60-1.20); POTASSIUM 4.2 mmol/L (3.5-5.1)
[2017-06-06] MEDS: NovoLOG INSULIN PUMP SCH ×4 (08:30→21:00)
--- NOTE | 2017-06-06 12:09 | Progress Note ---
Subjective Date of Service: Jun 06, 2017. Subjective Pt evaluation today including: conversation w/ patient, physical exam, lab review, review of studies, review of inpatient medication list Saw/examined the patient in room 407 Doing better today, tooth pain improving Good PO intake Problem List Medical Problems: (1) Acute renal failure Status: Acute (2) Dentalgia Status: Acute (3) Duodenitis Status: Acute (4) Upper abdominal pain Status: Acute Review of Systems Constitutional: No fever, No chills, No weakness ENT: + dental problems, + problem reported (intermittent tooth pain) Respiratory: No shortness of breath Cardiac: No chest pain Abdomen: No pain, No nausea, No vomiting, No diarrhea Medications Current Inpatient Medications Medications (Trade) Dose Ordered Sig/Soledad Route Start Time Stop Time Status Last Admin Dose Admin Heparin Sodium (Porcine) (Heparin Sq 5000 Unit/0.5ml) 5,000 unit Q8H SQ 06/04/17 22:00 07/04/17 21:59 06/06/17 06:13 5,000 UNIT Ondansetron HCl (Zofran Inj) 4 mg Q6H PRN IV 06/04/17 18:30 07/04/17 18:29 06/04/17 23:28 4 MG Morphine Sulfate (MoRPHine SULFATE INJ) 4 mg Q4H PRN IV 06/04/17 18:30 06/18/17 18:29 06/04/17 23:29 4 MG Atorvastatin Calcium (Lipitor Tab) 20 mg QPM PO 06/04/17 21:00 07/04/17 20:59 06/05/17 20:42 20 MG Diphenhydramine HCl (Benadryl Cap) 25 mg HS PO 06/04/17 21:00 07/04/17 20:59 06/05/17 20:43 25 MG Insulin Aspart (novoLOG INSULIN PUMP) 1 ea ACHS N/A 06/04/17 21:00 07/04/17 20:59 06/06/17 08:30 1 EA Glucose (Glucose 40% Gel) UD PRN PO 06/04/17 20:30 07/04/17 20:29 Glucose (Glucose Chew Tab) 1 tabs UD PRN PO 06/04/17 20:30 07/04/17 20:29 Glucagon (Glucagon Inj) 1 mg UD PRN SQ 06/04/17 20:30 07/04/17 20:29 Dextrose (Dextrose 50% 50ML Syringe) 50 ml UD PRN IV 06/04/17 20:30 07/04/17 20:29 Insulin Aspart (novoLOG ASPART) SLIDING SCALE PRN PRN SC 06/04/17 23:15 07/04/17 23:14 Benzocaine (Orajel 2% Oral Gel) 1 appln QID PRN MT 06/05/17 13:30 07/05/17 13:29 06/05/17 15:18 1 APPLN Acetaminophen (Tylenol Tab) 1,000 mg Q8 PO 06/05/17 14:00 07/05/17 13:59 06/06/17 06:10 1,000 MG Sodium Chloride 1,000 ml @ 80 mls/hr [id number] IV 06/05/17 16:15 07/05/17 16:14 06/06/17 04:05 80 MLS/HR Objective Vital Signs Date Time Temp Pulse Resp B/P (MAP) Pulse Ox O2 Delivery O2 Flow Rate FiO2 06/06/17 11:37 36.8 85 18 134/82 (99) 100 06/06/17 07:44 36.6 74 18 109/66 (80) 99 Room Air 06/06/17 04:11 36.7 67 20 108/73 (85) 95 Room Air 06/06/17 00:04 36.6 72 18 104/63 (77) 97 Room Air 06/06/17 00:01 Room Air 06/05/17 20:00 Room Air 06/05/17 19:25 36.8 73 18 118/76 (90) 96 Room Air 06/05/17 16:00 Room Air 06/05/17 15:41 36.8 69 18 90/62 (71) 95 Room Air Physical Exam General Appearance: no apparent distress Respiratory/Chest: no respiratory distress, no accessory muscle use Extremities: normal inspection, no pedal edema Neurologic/Psychiatric: no motor/sensory deficits, alert, normal mood/affect Laboratory Results Last 24 Hours Test 06/05/17 16:30 06/05/17 19:51 06/06/17 07:08 06/06/17 07:59 Bedside Glucose 81 mg/dl 70 mg/dl 98 mg/dl White Blood Count 7.75 K/uL Red Blood Count 3.22 M/uL Hemoglobin 9.9 g/dL Hematocrit 29.4 % Mean Corpuscular Volume 91.3 fL Mean Corpuscular Hemoglobin 30.7 pg Mean Corpuscular Hemoglobin Concent 33.7 g/dl RDW Standard Deviation 41.1 fL RDW Coefficient of Variation 12.2 % Platelet Count 235 K/uL Mean Platelet Volume 10.0 fL Sodium Level 141 mmol/L Potassium Level 4.2 mmol/L Chloride Level 112 mmol/L Carbon Dioxide Level 22 mmol/L Anion Gap 7.0 mmol/L Blood Urea Nitrogen 28 mg/dl Creatinine 2.60 mg/dl Est Creatinine Clear Calc Drug Dose 30.7 ml/min Estimated GFR () 24.5 Estimated GFR (Non- 21.1 BUN/Creatinine Ratio 10.9 Random Glucose 117 mg/dl Calcium Level 8.1 mg/dl Test 06/06/17 11:36 06/06/17 11:45 Bedside Glucose 111 mg/dl Assessment and Plan This is a 46 year old female with a PMH of type 1 DM with insulin pump, HTN, CKD stage 3, obesity presents with tooth pain and subsequently found to have acute kidney injury Acute Kidney Injury superimposed on CKD stage 3 multifactorial: Lasix, lisinopril, diclofenac use as well as diabetic nephropathy creatinine on admission was 4.0 currently on NS @ 80mL/hr creatinine improving to 2.6 today; will continue IVFs and continue to monitor hold Lasix, Lisinopril and NSAIDs appreciate nephrology input Dental Pain possibly tooth vs. gum pain no sign of infection, hold off on antibiotics benzocaine and Tylenol are working and we will continue this for now outpatient dentist follow-up HTN blood pressure stable Thyroid Nodule check TSH outpatient thyroid U/S DVT ppx subq heparin FULL CODE
[2017-06-06 12:39] LABS: THYROID STIMULATING HORMONE 4.92 uIu/ml (0.300-4.500)
[2017-06-06] MEDS ORDERED: NURSING VERBAL MED ORDER ONE (15:30)
[2017-06-06] MEDS ORDERED: POLYETHYLENE (MIRALAX) 17 GM PACK PO PRN (15:45)
[2017-06-06] MEDS ORDERED: MAGNESIUM HYDROXIDE SUSP 30 ML UDC PO PRN (15:45)
[2017-06-06] MEDS: ATORVASTATIN 20 MG TAB PO SCH (21:03)
[2017-06-07 00:26] VITALS: BP 111/71; PULSE 79; TEMP 36.6; O2SAT 98
[2017-06-07 04:39] VITALS: BP 122/84; PULSE 77; TEMP 36.7; O2SAT 96
[2017-06-07] MEDS: SODIUM CHLORIDE 0.9% 1000ML 1,000 ML IV SCH (05:48)
[2017-06-07] MEDS: ACETAMINOPHEN 500 MG TAB PO SCH (06:05)
[2017-06-07] MEDS: HEPARIN SOD 5000 UNIT/0.5 ML CARP SQ SCH (06:08)
--- NOTE | 2017-06-07 07:42 | Nephrology Progress Note ---
Nephrology Progress Note Date of Service: Jun 07, 2017. Subjective 46 yo female with kady on ckd from volume depletion and tooth pain. creatinine has improved. pts pain is well controlled and eating better. pt is ready to go home today. pt urinating well. no sob. pt while eating last night had bilateral arm weakness but feels better this morning Objective Date Time Temp Pulse Resp B/P (MAP) Pulse Ox O2 Delivery O2 Flow Rate FiO2 06/07/17 04:39 36.7 77 18 122/84 (97) 96 Room Air 06/07/17 00:26 36.6 79 20 111/71 (84) 98 Room Air 06/07/17 00:00 Room Air 06/06/17 20:47 36.9 80 18 120/77 (91) 98 Room Air 06/06/17 16:00 Room Air 06/06/17 15:24 36.8 75 20 139/83 (101) 100 Room Air 06/06/17 11:37 36.8 85 18 134/82 (99) 100 06/06/17 08:00 99 Room Air 06/06/17 07:44 36.6 74 18 109/66 (80) 99 Room Air Physical Exam: General-aaox3 Eyes-no scleral icterus ENT-mmm Neck-supple Lungs-cta Heart-rrr Abdomen-bs+ s/nt/nd Extremities-no c/c/e Neuro-nonfocal Current Inpatient Medications Medications (Trade) Dose Ordered Sig/Soledad Route Start Time Stop Time Status Last Admin Dose Admin Heparin Sodium (Porcine) (Heparin Sq 5000 Unit/0.5ml) 5,000 unit Q8H SQ 06/04/17 22:00 07/04/17 21:59 06/07/17 06:08 5,000 UNIT Ondansetron HCl (Zofran Inj) 4 mg Q6H PRN IV 06/04/17 18:30 07/04/17 18:29 06/04/17 23:28 4 MG Morphine Sulfate (MoRPHine SULFATE INJ) 4 mg Q4H PRN IV 06/04/17 18:30 06/18/17 18:29 06/04/17 23:29 4 MG Atorvastatin Calcium (Lipitor Tab) 20 mg QPM PO 06/04/17 21:00 07/04/17 20:59 06/06/17 21:03 20 MG Diphenhydramine HCl (Benadryl Cap) 25 mg HS PO 06/04/17 21:00 07/04/17 20:59 06/06/17 22:09 25 MG Insulin Aspart (novoLOG INSULIN PUMP) 1 ea ACHS N/A 06/04/17 21:00 07/04/17 20:59 06/06/17 12:30 1 EA Glucose (Glucose 40% Gel) UD PRN PO 06/04/17 20:30 07/04/17 20:29 Glucose (Glucose Chew Tab) 1 tabs UD PRN PO 06/04/17 20:30 07/04/17 20:29 Glucagon (Glucagon Inj) 1 mg UD PRN SQ 06/04/17 20:30 07/04/17 20:29 Dextrose (Dextrose 50% 50ML Syringe) 50 ml UD PRN IV 06/04/17 20:30 07/04/17 20:29 Insulin Aspart (novoLOG ASPART) SLIDING SCALE PRN PRN SC 06/04/17 23:15 07/04/17 23:14 Benzocaine (Orajel 2% Oral Gel) 1 appln QID PRN MT 06/05/17 13:30 07/05/17 13:29 06/05/17 15:18 1 APPLN Acetaminophen (Tylenol Tab) 1,000 mg Q8 PO 06/05/17 14:00 07/05/17 13:59 06/07/17 06:05 1,000 MG Sodium Chloride 1,000 ml @ 80 mls/hr [id number] IV 06/05/17 16:15 07/05/17 16:14 06/07/17 05:48 80 MLS/HR Polyethylene (Miralax Powder Packet) 17 gm DAILY PRN PO 06/06/17 15:45 07/06/17 15:44 06/06/17 16:48 17 GM Magnesium Hydroxide (Milk Of Magnesia Susp) 30 ml DAILY PRN PO 06/06/17 15:45 07/06/17 15:44 06/06/17 16:47 30 ML Last 24 Hours Test 06/06/17 07:59 06/06/17 11:36 06/06/17 16:44 06/06/17 17:32 Bedside Glucose 98 mg/dl 111 mg/dl 83 mg/dl Magnesium Level 2.1 mg/dl Vitamin B12 Level 320 pg/mL Test 06/06/17 20:58 Bedside Glucose 87 mg/dl Assessment & Plan kady on ckd-creatinine much improved with iv fluids and is below baseline creatinine. will stop the iv fluids. ok from renal perspective to go home today. follow up as previously scheduled prior to admission. no hospital follow up needed for nephro at this time.
[2017-06-07 08:00] VITALS: O2SAT 97
[2017-06-07 08:22] VITALS: BP 118/84; PULSE 75; TEMP 36.6; O2SAT 97
[2017-06-07] MEDS: NovoLOG INSULIN PUMP SCH (08:30)
[2017-06-07 08:53] LABS: BUN/CREATININE RATIO 10.3 (10-20); CALCIUM 7.8 mg/dl (8.5-10.1); CREATININE 1.9 mg/dl (0.60-1.20); POTASSIUM 4.6 mmol/L (3.5-5.1)
[2017-06-07] MEDS ORDERED: ORJ MT (11:04)
--- NOTE | 2017-06-07 11:04 | Progress Note ---
Subjective Date of Service: Jun 07, 2017. Subjective Pt evaluation today including: conversation w/ patient, physical exam, lab review, review of studies, review of inpatient medication list Problem List Medical Problems: (1) Acute renal failure Status: Acute (2) Dentalgia Status: Acute (3) Duodenitis Status: Acute (4) Upper abdominal pain Status: Acute Review of Systems Constitutional: No fever, No chills Respiratory: No shortness of breath Cardiac: No chest pain Abdomen: No pain, No nausea, No vomiting, No diarrhea Heme: No abnormal bleeding/bruising Medications Current Inpatient Medications Medications (Trade) Dose Ordered Sig/Soledad Route Start Time Stop Time Status Last Admin Dose Admin Heparin Sodium (Porcine) (Heparin Sq 5000 Unit/0.5ml) 5,000 unit Q8H SQ 06/04/17 22:00 07/04/17 21:59 06/07/17 06:08 5,000 UNIT Ondansetron HCl (Zofran Inj) 4 mg Q6H PRN IV 06/04/17 18:30 07/04/17 18:29 06/04/17 23:28 4 MG Morphine Sulfate (MoRPHine SULFATE INJ) 4 mg Q4H PRN IV 06/04/17 18:30 06/18/17 18:29 06/04/17 23:29 4 MG Atorvastatin Calcium (Lipitor Tab) 20 mg QPM PO 06/04/17 21:00 07/04/17 20:59 06/06/17 21:03 20 MG Diphenhydramine HCl (Benadryl Cap) 25 mg HS PO 06/04/17 21:00 07/04/17 20:59 06/06/17 22:09 25 MG Insulin Aspart (novoLOG INSULIN PUMP) 1 ea ACHS N/A 06/04/17 21:00 07/04/17 20:59 06/07/17 08:30 1 EA Glucose (Glucose 40% Gel) UD PRN PO 06/04/17 20:30 07/04/17 20:29 Glucose (Glucose Chew Tab) 1 tabs UD PRN PO 06/04/17 20:30 07/04/17 20:29 Glucagon (Glucagon Inj) 1 mg UD PRN SQ 06/04/17 20:30 07/04/17 20:29 Dextrose (Dextrose 50% 50ML Syringe) 50 ml UD PRN IV 06/04/17 20:30 07/04/17 20:29 Insulin Aspart (novoLOG ASPART) SLIDING SCALE PRN PRN SC 06/04/17 23:15 07/04/17 23:14 Benzocaine (Orajel 2% Oral Gel) 1 appln QID PRN MT 06/05/17 13:30 07/05/17 13:29 06/05/17 15:18 1 APPLN Acetaminophen (Tylenol Tab) 1,000 mg Q8 PO 06/05/17 14:00 07/05/17 13:59 06/07/17 06:05 1,000 MG Polyethylene (Miralax Powder Packet) 17 gm DAILY PRN PO 06/06/17 15:45 07/06/17 15:44 06/06/17 16:48 17 GM Magnesium Hydroxide (Milk Of Magnesia Susp) 30 ml DAILY PRN PO 06/06/17 15:45 07/06/17 15:44 06/06/17 16:47 30 ML Objective Vital Signs Date Time Temp Pulse Resp B/P (MAP) Pulse Ox O2 Delivery O2 Flow Rate FiO2 06/07/17 08:22 36.6 75 18 118/84 (95) 97 Room Air 06/07/17 08:00 97 Room Air 06/07/17 04:39 36.7 77 18 122/84 (97) 96 Room Air 06/07/17 00:26 36.6 79 20 111/71 (84) 98 Room Air 06/07/17 00:00 Room Air 06/06/17 20:47 36.9 80 18 120/77 (91) 98 Room Air 06/06/17 16:00 Room Air 06/06/17 15:24 36.8 75 20 139/83 (101) 100 Room Air 06/06/17 11:37 36.8 85 18 134/82 (99) 100 Physical Exam General Appearance: no apparent distress, + obese Respiratory/Chest: chest non-tender, lungs clear, normal breath sounds, no respiratory distress, no accessory muscle use Cardiovascular: regular rate, rhythm, no edema, no murmur Extremities: normal inspection, no pedal edema Neurologic/Psychiatric: no motor/sensory deficits, alert, normal mood/affect Laboratory Results Last 24 Hours Test 06/06/17 11:36 06/06/17 16:44 06/06/17 17:32 06/06/17 20:58 Bedside Glucose 111 mg/dl 83 mg/dl 87 mg/dl Magnesium Level 2.1 mg/dl Vitamin B12 Level 320 pg/mL Test 06/07/17 07:43 06/07/17 08:01 Bedside Glucose 104 mg/dl Sodium Level 140 mmol/L Potassium Level 4.6 mmol/L Chloride Level 112 mmol/L Carbon Dioxide Level 21 mmol/L Anion Gap 7.0 mmol/L Blood Urea Nitrogen 20 mg/dl Creatinine 1.90 mg/dl Est Creatinine Clear Calc Drug Dose 41.9 ml/min Estimated GFR () 35.8 Estimated GFR (Non- 30.9 BUN/Creatinine Ratio 10.3 Random Glucose 105 mg/dl Calcium Level 7.8 mg/dl Assessment and Plan This is a 46 year old female with a PMH of type 1 DM with insulin pump, HTN, CKD stage 3, obesity presents with tooth pain and subsequently found to have acute kidney injury Acute Kidney Injury superimposed on CKD stage 3 06/07 improving creatinine to 1.9 appreciate nephrology input can d/c home BMP in one week outpatient follow-up with PCP, nephrology in 2 months, and dentist for tooth pain 06/06 multifactorial: Lasix, lisinopril, diclofenac use as well as diabetic nephropathy creatinine on admission was 4.0 currently on NS @ 80mL/hr creatinine improving to 2.6 today; will continue IVFs and continue to monitor hold Lasix, Lisinopril and NSAIDs appreciate nephrology input Dental Pain possibly tooth vs. gum pain no sign of infection, hold off on antibiotics benzocaine and Tylenol are working and we will continue this for now outpatient dentist follow-up HTN blood pressure stable Thyroid Nodule check TSH outpatient thyroid U/S DVT ppx subq heparin FULL CODE
[2017-06-07 11:28] VITALS: BP 123/88; PULSE 83; TEMP 36.8; O2SAT 98
--- NOTE | 2017-06-07 11:28 | Discharge Instructions ---
Discharge Instructions Date of Service Jun 07, 2017. Admission Reason for Admission: Acute Renal Failure Discharge Discharge Diagnosis / Problem: Acute Kidney Injury because of dehydration and NSAID use Discharge Goals Goal(s): Decrease discomfort, Improve function, Diagnostic testing, Therapeutic intervention Activity Recommendations Activity Limitations: resume your previous activity . Instructions / Follow-Up Instructions / Follow-Up Please follow-up with Dr. Trotter on June 13 at 9:30AM * You should have blood work (basic metabolic profile) drawn in one week to check kidney function (you are leaving here with a creatinine of 1.9, goal is to trend down) * Follow-up with nephrology as scheduled * Hold Lasix for now, if swelling worsens, may need to continue low dose once a day * You will need to follow-up with your dentist for the tooth pain * You should have a thyroid ultrasound as an outpatient to follow-up on a thyroid nodule * Repeat TSH in 6 weeks Current Hospital Diet Patient's current hospital diet: Diabetes Type 1 Diet, AHA Diet (Heart Healthy) Discharge Diet Recommended Diet: AHA Diet (Heart Healthy), Diabetes Type 1 Diet Pending Studies Studies pending at discharge: no Medical Emergencies . Who to Call and When: Medical Emergencies: If at any time you feel your situation is an emergency, please call 911 immediately. . Non-Emergent Contact Non-Emergency issues call your: Primary Care Provider . . "Provider Documentation" section prepared by Tommy Mars. . VTE Core Measure Inpt VTE Proph given/why not?: Unfractionated heparin SQ
--- NOTE | 2017-06-07 11:37 | Discharge Summary ---
Discharge Summary Date of Service Jun 07, 2017. Discharge Summary Admission Date: Jun 04, 2017 at 18:23 Discharge Date: Jun 07, 2017 Discharge Disposition: Home Principal Diagnosis: Acute Kidney Injury superimposed on CKD stage 3 Tooth Pain Type 1 DM Medication Reconciliation New Medications: Benzocaine (Hurricaine) 20 % Gel 1 APPLN MT QID PRN for tooth pain for 10 Days, #1 TUBE Continued Medications: Acetaminophen (Tylenol) 500 Mg Tab 500-1000 MG PO Q4 PRN for Pain, TAB Atorvastatin (Lipitor) 20 Mg Tab 20 MG PO QPM, TAB Diphenhydramine Hcl (Benadryl) 25 Mg Cap 25 MG PO HS, CAP Insulin Aspart (novoLOG INSULIN PUMP ) 1 Ea Inj 1 EA N/A UD, EA Lisinopril (Zestril) 20 Mg Tab 20 MG PO DAILY, TAB Discontinued Medications: Amoxicillin (Amoxil) 500 Mg Cap 500 MG PO QID, #21 CAP take 500mg four times a day until gone Diclofenac (Voltaren) 50 Mg Tabec 50 MG PO TID PRN for Pain, TAB Furosemide (Lasix) 20 Mg Tab 20 MG PO BID, TAB Admission Information HPI (per Admitting provider): 46 yo F with CKD Stage III with baseline creatinine around 2 presents with one week of nausea, vomiting and severe tooth pain on her lower right mandible. The pain radiates up into her ear area. She had a root canal many months ago for a tooth infection in that spot and then underwent a crown placement 2-3 months ago. She was doing well until one week ago when she developed severe pain. She went back to the dentist and was examined and placed on clindamycin initially. After two days, she wasn't feeling any better and called back and was put on Amoxicillin instead. Shortly after this she developed nausea and vomiting and couldn't tolerate pills or much food. However, she has been to the [email or web address] a couple of times this week and was able to eat a hoagie and some gas station food [facility] in the last 48 hours. She reports vomiting and having some abdominal pain and diarrhea 2-3 times in the past 24 hours. She denies fevers or chills, has no ear pain, fullness or hearing loss, denies sore throat, eye symptoms, chest pain or shortness of breath. She has no neck swelling or pain present. She does report a mild frontal headache this morning which is now resolved. She denies any UTI symptoms of flank pain. She can't point to one spot where she has abdominal tenderness she just moreso states that she feels poorly because of the nausea. She denies blood in her stool. She is a diabetic on an insulin pump and reports that several days ago her sugars were in the 500s, but they have since come back into the normal range. She denies any cough or congestion. She reports having stopped her Lasix 5 days ago which is something she has taken over the past year for foot swelling. She also reports being put on synthroid 25 for a short time by Dr. Iyer, her home health aide caregiver, but states she stopped it "because it was making me pee too much. Physical Exam (per Admitting): GEN: Obese, in no acute distress, alert and appropriate HEENT: NC/AT, pupils are equal and round bilaterally, normal sclerae,MMM. Pharynx nonacute. No peridontal inflammation or drainage present. No TTP of cheek, TMJ or submandibular space. No LAD, no sinus TTP. Normal tongue. CARDIO: reg rate, S1/2 heard without m/g/r LUNGS: CTA bilaterally, no crackles, rales or wheezes, good diaphragmatic excursion ABD: soft, non-tender, non-distended, no rebound or guarding, no CVA tenderness , +BS EXTREMITY: RP and DP palpable 2+ bilat, no LE swelling or edema, extremities are warm and well-perfused NEURO: CN 2-12 grossly intact, no gross focal deficits. MUSC: 5/5 strength throughout, no focal deficits SKIN: warm and dry Hospital Course This is a 46 year old female with a PMH of type 1 DM with insulin pump, HTN, CKD stage 3, obesity presents with tooth pain and subsequently found to have acute kidney injury Acute Kidney Injury superimposed on CKD stage 3 06/07 improving creatinine to 1.9 appreciate nephrology input can d/c home BMP in one week outpatient follow-up with PCP, nephrology in 2 months, and dentist for tooth pain 06/06 multifactorial: Lasix, lisinopril, diclofenac use as well as diabetic nephropathy creatinine on admission was 4.0 currently on NS @ 80mL/hr creatinine improving to 2.6 today; will continue IVFs and continue to monitor hold Lasix, Lisinopril and NSAIDs appreciate nephrology input Dental Pain possibly tooth vs. gum pain no sign of infection, hold off on antibiotics benzocaine and Tylenol are working and we will continue this for now outpatient dentist follow-up HTN blood pressure stable Thyroid Nodule check TSH outpatient thyroid U/S DVT ppx subq heparin FULL CODE Total time spent on discharge = 40 minutes This includes examination of the patient, discharge planning, medication reconciliation, and communication with other providers. Discharge Instructions Please follow-up with Dr. Trotter on June 13 at 9:30AM * You should have blood work (basic metabolic profile) drawn in one week to check kidney function (you are leaving here with a creatinine of 1.9, goal is to trend down) * Follow-up with nephrology as scheduled * Hold Lasix for now, if swelling worsens, may need to continue low dose once a day * You will need to follow-up with your dentist for the tooth pain * You should have a thyroid ultrasound as an outpatient to follow-up on a thyroid nodule * Repeat TSH in 6 weeks
[2017-06-07 11:58] VITALS: BP 123/88; PULSE 83; TEMP 36.8; O2SAT 98
== END 2017-06-07 12:20 | disposition home or self-care (01) | DRG 683 ==
LOC: C.EDB 15:45 → C.4E 18:23 → ENRESERV 18:54
PROVIDERS: ADMIT Hospitalist; ATTEND Family Medicine
DX: N17.9 Acute kidney failure, unspecified (principal); Z68.41 Body mass index [BMI] 40.0-44.9, adult; N18.3 Chronic kidney disease, stage 3 (moderate); E10.319 Type 1 diabetes mellitus with unspecified diabetic retinopathy without macular edema; E10.22 Type 1 diabetes mellitus with diabetic chronic kidney disease; E86.0 Dehydration; E78.5 Hyperlipidemia, unspecified; D63.8 Anemia in other chronic diseases classified elsewhere; K29.80 Duodenitis without bleeding; A05.9 Bacterial foodborne intoxication, unspecified; K52.9 Noninfective gastroenteritis and colitis, unspecified; E10.40 Type 1 diabetes mellitus with diabetic neuropathy, unspecified; E66.9 Obesity, unspecified; K08.89 Other specified disorders of teeth and supporting structures; G47.00 Insomnia, unspecified; E04.1 Nontoxic single thyroid nodule; I12.9 Hypertensive chronic kidney disease with stage 1 through stage 4 chronic kidney disease, or unspecified chronic kidney disease; Z96.41 Presence of insulin pump (external) (internal); T39.315A Adverse effect of propionic acid derivatives, initial encounter; T50.1X5A Adverse effect of loop [high-ceiling] diuretics, initial encounter; T46.4X5A Adverse effect of angiotensin-converting-enzyme inhibitors, initial encounter; T39.395A Adverse effect of other nonsteroidal anti-inflammatory drugs [NSAID], initial encounter; Z79.899 Other long term (current) drug therapy; Z79.4 Long term (current) use of insulin; Z79.1 Long term (current) use of non-steroidal anti-inflammatories (NSAID)

== ENCOUNTER 2017-06-30 23:10 | Emergency (ER) | payer OTHER ==
[~2017-06-30] VITALS: Ht 160 cm; Wt 106.0 kg
[~2017-06-30 23:10] MED LIST: ACET-1256 PO; ATOR-22 PO; BND25 PO; INSPMPNVLG; LISI-725 PO; ORJ MT
[2017-06-30 23:23] VITALS: TEMP 36.9; Ht 160 cm; Wt 106.0 kg
[2017-07-01] MEDS ORDERED: AMT10 PO (00:08)
--- NOTE | 2017-07-01 00:14 | EMERGENCY ROOM VISIT NOTE ---
History First contact with patient: 23:29 Chief Complaint: FACIAL PAIN/INJURY Stated Complaint: JAW/FACIAL PAIN History of Present Illness The patient is a 46 year old female who presents to the Emergency Room with complaints of right-sided facial pain. The patient states that she has had pain on and off for the past month. The patient was admitted earlier this month for elevated creatinine. She had her creatinine checked this week and reports it was back at her baseline. She had imaging at that time which showed a dental abscess. She had the affected tooth pulled on June 15. She saw her dentist yesterday in follow-up and had x-rays. She was told by the dentist that the pain is not due to her teeth. She states the pain comes and goes and lasts for 2-3 minutes when it does occur. She rates the discomfort a 9.5/10. She states the pain radiates from her right ear toward her eye, cheek and jaw. She was told by her primary care provider that this may be trigeminal neuralgia and was prescribed amitriptyline. She is supposed to follow-up with neurology but does not have an appointment. The patient denies any symptoms at this time. She denies any facial swelling, fevers or difficulty swallowing. She denies any numbness or weakness. Review of Systems A complete 10 point review of systems was reviewed with the patient with pertinent positives and negatives as per history of present illness. All else were negative. Past Medical/Surgical History Medical Problems: (1) CKD (chronic kidney disease) stage 3, GFR 30-59 ml/min (2) Diabetes (3) HTN (hypertension) (4) Hyperlipidemia (5) Infection of tooth (6) Obesity (7) Retinopathy (8) S/p dental crown (9) Tubal (10) Tubal (11) Vitamin D deficiency Surgical Problems: (1) H/O dilation and curettage (2) H/O laparoscopy (3) History of arthroplasty of left knee Family History Diabetes mellitus FH: myocardial infarction FHx: hyperlipidemia Hypertension Social History Smoking Status: Never Smoker Drug Use: none Marital Status: Housing Status: lives with family Occupation Status: employed Current/Historical Medications Scheduled Amitriptyline HCl (Amitriptyline HCl), 10-20 MG PO HS Atorvastatin (Lipitor), 20 MG PO QPM Diphenhydramine Hcl (Benadryl), 25 MG PO HS Insulin Aspart (novoLOG INSULIN PUMP ), 1 EA N/A UD Lisinopril (Zestril), 20 MG PO DAILY Scheduled PRN Acetaminophen (Tylenol), 500-1,000 MG PO Q4 PRN for Pain Physical Exam Vital Signs Date Time Temp Pulse Resp B/P (MAP) Pulse Ox O2 Delivery O2 Flow Rate FiO2 07/01/17 00:21 88 18 116/72 98 06/30/17 23:23 36.9 87 18 135/81 98 Room Air Physical Exam VITALS: Vitals are noted on the nurse's note and reviewed by myself. Vital signs stable. GENERAL: This is a 46-year-old female, in no acute distress, nondiaphoretic, well-developed well-nourished. SKIN: The skin was without rashes, erythema, edema, or bruising. HEAD: Normocephalic atraumatic. EARS: External auditory canals clear, tympanic membranes pearly smith without erythema or effusion bilaterally. EYES: Pupils equal round and reactive to light and accommodation. Conjunctivae without injection, sclerae without icterus. Extraocular movements intact. NOSE: Patent, turbinates without inflammation or discharge. MOUTH: Mucous membranes moist. Tonsils are not enlarged. Pharynx without erythema or exudate. No obvious dental caries. No gum swelling. NECK: Supple without nuchal rigidity. No lymphadenopathy. HEART: Regular rate and rhythm without murmurs gallops or rubs. LUNGS: Clear to auscultation bilaterally without wheezes, rales or rhonchi. NEURO: Patient was alert and oriented to person place and time. Normal sensation to light and sharp touch. Medical Decision & Procedures Medical Decision Differential diagnosis includes trigeminal neuralgia, dental abscess, migraine headaches, temporal arteritis, among others. The patient was evaluated as above. Previous records were reviewed. The patient has been seen here previously for these symptoms. She has been worked up extensively as an outpatient by her primary care provider and dentistry at this time. Her primary care provider believes this may be due to trigeminal neuralgia and I am in agreement that the symptoms are highly suggestive of this. I spoke with case management, who will contact neurology to schedule the patient in follow-up appointment as soon as possible. The patient was encouraged to continue her medications at home as prescribed. She verbalized understanding of my assessment and treatment plan and was discharged home in good condition. Medication Reconcilliation Current Medication List: was personally reviewed by me Blood Pressure Screening Patient's blood pressure: Normal blood pressure Impression Primary Impression: Right facial pain Departure Information Dispostion Home / Self-Care Condition GOOD Referrals Dorene Trotter D.O. (PCP) Patient Instructions My [facility] Additional Instructions Case management will contact [facility] neurology to schedule a follow up appointment. You should also follow-up with her primary care provider. Continue your medications as prescribed. Return to the emergency department with fevers, swelling, or any other new/ concerning symptoms.
[2017-07-01 00:21] VITALS: BP 116/72; PULSE 88; O2SAT 98
== END 2017-07-01 00:23 | disposition home or self-care (01) ==
LOC: C.EDB 23:10 → C.EDC 07-01 00:23
DX: R51 Headache (principal); N18.3 Chronic kidney disease, stage 3 (moderate); E11.9 Type 2 diabetes mellitus without complications; I10 Essential (primary) hypertension; E78.5 Hyperlipidemia, unspecified; E66.9 Obesity, unspecified; Z83.3 Family history of diabetes mellitus; Z82.49 Family history of ischemic heart disease and other diseases of the circulatory system; Z79.4 Long term (current) use of insulin

== ENCOUNTER 2017-07-11 22:19 | Emergency (ER) | payer OTHER ==
[~2017-07-11] VITALS: Ht 160 cm; Wt 107.3 kg
[~2017-07-11 22:19] MED LIST changes: +AMT10 PO; -ORJ MT
[2017-07-11 22:27] VITALS: TEMP 36.4; Ht 160 cm; Wt 107.3 kg
[2017-07-11] MEDS ORDERED: MoRPHine SULFATE 4 MG/ML 1 ML CARP\\VIAL IV STA (23:11)
[2017-07-11] MEDS ORDERED: ONDANSETRON INJ 2 MG/ML 2 ML VIAL IV STA (23:11)
[2017-07-11] MEDS ORDERED: METHYLPREDNISOLONE 125 MG VIAL IV STA (23:17)
--- NOTE | 2017-07-11 23:20 | EMERGENCY ROOM VISIT NOTE ---
History Report prepared by Chung: Nawaf Bautista Under the Supervision of: Dr. Odalys Benton M.D. First contact with patient: 23:03 Chief Complaint: FACIAL PAIN/INJURY Stated Complaint: SEVERE PAIN IN FACE History of Present Illness The patient is a 46 year old female who presents to the Emergency Room with complaints of worsening, severe, right jaw pain beginning two months ago. The patient states her pain began in May, and she had a tooth pulled. She reports she thought this was the problem, but she is still having discomfort. The patient notes she has been her twice for similar symptoms. She states she saw a neurosurgeon today and was told her neuralgia is atypical. The patient reports she was told the pain typically radiated down from the head to the jaw, but her pain starts at the jaw and radiates up to the head. She notes the surgery that would be performed would not fix her symptoms, so she was prescribed Tegretol. The patient states she has been taking Percocet and Tylenol for pain, but they have not been working. She reports this evening her pain was too severe and is now constant instead of intermittent. The patient notes she is not able to sleep because when she lays down, her face throbs. She states she has not seen a pain management doctor yet. Source of History: patient Onset: two months ago Position: other (right facial pain) Symptom Intensity: severe Timing: worsening Modifying Factors (Worsening): other (lying down) Note: Associated symptoms: right sided head pain Review of Systems See HPI for pertinent positives & negatives. A total of 10 systems reviewed and were otherwise negative. Past Medical & Surgical Medical Problems: (1) CKD (chronic kidney disease) stage 3, GFR 30-59 ml/min (2) Diabetes (3) HTN (hypertension) (4) Hyperlipidemia (5) Infection of tooth (6) Obesity (7) Retinopathy (8) S/p dental crown (9) Tubal (10) Tubal (11) Vitamin D deficiency Surgical Problems: (1) H/O dilation and curettage (2) H/O laparoscopy (3) History of arthroplasty of left knee Family History Diabetes mellitus FH: myocardial infarction FHx: hyperlipidemia Hypertension Social History Smoking Status: Never Smoker Smokeless Tobacco Use: No Alcohol Use: none Drug Use: none Marital Status: Housing Status: lives with family Occupation Status: employed Current/Historical Medications Scheduled Amitriptyline HCl (Amitriptyline HCl), 10-20 MG PO HS Atorvastatin (Lipitor), 20 MG PO QPM Carbamazepine (Tegretol), 100 MG PO BID Diphenhydramine Hcl (Benadryl), 25 MG PO HS Insulin Aspart (novoLOG INSULIN PUMP ), 1 EA N/A UD Lisinopril (Zestril), 20 MG PO DAILY Methylprednisolone (Medrol Dosepak), 1 PKT PO UD Scheduled PRN Acetaminophen (Tylenol), 500-1,000 MG PO Q4 PRN for Pain Oxycodone Immediate Rel Tab (Roxicodone Ir), 1-2 TAB PO Q4H PRN for Severe Pain Allergies Coded Allergies: No Known Allergies (Verified , 07/11/17) Physical Exam Vital Signs Date Time Temp Pulse Resp B/P (MAP) Pulse Ox O2 Delivery O2 Flow Rate FiO2 07/12/17 01:50 75 20 132/76 95 Room Air 07/12/17 00:03 80 20 139/78 95 Room Air 07/11/17 22:27 36.4 92 16 146/78 99 Room Air Physical Exam Vital signs reviewed. General: Well-appearing 46 year old female, in no significant distress. HEENT: No scleral icterus, PERRLA, neck supple. Atraumatic. Tenderness to the right side of the mandible, no swelling or lymphadenopathy. Poor dentition, tooth extraction site to right lower mandible appears to be well healing. Cardiovascular: Regular rate and rhythm, no extra sounds. Pulmonary: Clear to auscultation bilaterally, normal work of breathing. Abdomen: Soft, nontender, nondistended, positive bowel sounds. Musculoskeletal: Atraumatic, no peripheral edema. Neurologic: Patient awake alert and oriented x 3, full strength in all 4 extremities. Cranial nerves 2 through 12 grossly intact. Skin: Warm, dry, no rash Medical Decision & Procedures Laboratory Results 07/11/17 23:47 Red Blood Count 3.79, Mean Corpuscular Volume 89.7, Mean Corpuscular Hemoglobin 30.9, Mean Corpuscular Hemoglobin Concent 34.4, Mean Platelet Volume 9.1, Neutrophils (%) (Auto) 64.5, Lymphocytes (%) (Auto) 27.8, Monocytes (%) (Auto) 4.1, Eosinophils (%) (Auto) 2.8, Basophils (%) (Auto) 0.4, Neutrophils # (Auto) 9.09, Lymphocytes # (Auto) 3.92, Monocytes # (Auto) 0.58, Eosinophils # (Auto) 0.40, Basophils # (Auto) 0.05 07/11/17 23:47 Test 07/11/17 23:47 White Blood Count 14.09 K/uL (4.8-10.8) Red Blood Count 3.79 M/uL (4.2-5.4) Hemoglobin 11.7 g/dL (12.0-16.0) Hematocrit 34.0 % (37-47) Mean Corpuscular Volume 89.7 fL (80-100) Mean Corpuscular Hemoglobin 30.9 pg (25-34) Mean Corpuscular Hemoglobin Concent 34.4 g/dl (32-36) Platelet Count 340 K/uL (130-400) Mean Platelet Volume 9.1 fL (7.4-10.4) Neutrophils (%) (Auto) 64.5 % Lymphocytes (%) (Auto) 27.8 % Monocytes (%) (Auto) 4.1 % Eosinophils (%) (Auto) 2.8 % Basophils (%) (Auto) 0.4 % Neutrophils # (Auto) 9.09 K/uL (1.4-6.5) Lymphocytes # (Auto) 3.92 K/uL (1.2-3.4) Monocytes # (Auto) 0.58 K/uL (0.11-0.59) Eosinophils # (Auto) 0.40 K/uL (0-0.5) Basophils # (Auto) 0.05 K/uL (0-0.2) RDW Standard Deviation 38.9 fL (36.4-46.3) RDW Coefficient of Variation 12.0 % (11.5-14.5) Immature Granulocyte % (Auto) 0.4 % Immature Granulocyte # (Auto) 0.05 K/uL (0.00-0.02) Anion Gap 9.0 mmol/L (3-11) Est Creatinine Clear Calc Drug Dose 43.0 ml/min Estimated GFR () 35.8 Estimated GFR (Non- 30.9 BUN/Creatinine Ratio 14.5 (10-20) Calcium Level 9.4 mg/dl (8.5-10.1) Total Bilirubin 0.2 mg/dl (0.2-1) Direct Bilirubin < 0.1 mg/dl (0-0.2) Aspartate Amino Transf (AST/SGOT) 22 U/L (15-37) Alanine Aminotransferase (ALT/SGPT) 21 U/L (12-78) Alkaline Phosphatase 118 U/L (45-117) Total Protein 7.7 gm/dl (6.4-8.2) Albumin 3.1 gm/dl (3.4-5.0) Laboratory results per my review. Medications Administered Medications (Trade) Dose Ordered Sig/Soledad Route Start Time Stop Time Status Last Admin Dose Admin Morphine Sulfate (MoRPHine SULFATE INJ) 4 mg NOW STAT IV 07/11/17 23:11 07/11/17 23:13 DC 07/11/17 23:54 4 MG Ondansetron HCl (Zofran Inj) 4 mg NOW STAT IV 07/11/17 23:11 07/11/17 23:13 DC 07/11/17 23:53 4 MG Methylprednisolone Sodium Succinate (Solu-Medrol IV) 60 mg NOW STAT IV 07/11/17 23:17 07/11/17 23:18 DC 07/11/17 23:53 60 MG Morphine Sulfate (MoRPHine SULFATE INJ) 4 mg NOW STAT IV 07/12/17 00:51 07/12/17 00:52 DC 07/12/17 00:58 4 MG ED Course 2309: Past medical records reviewed. The patient was evaluated in room B07. A complete history and physical examination was performed. 2311: Ordered Zofran Inj 4mg IV, Morphine Sulfate 4mg IV 2317: Ordered Solu-Medrol IV 60mg IV 0051: Ordered Morphine Sulfate 4mg IV 0110: I reevaluated the patient and discussed current exam findings. Informed her of the treatment plan. 0153: Upon reevaluation, the patient appeared to have improvement of her symptoms. I discussed findings with her. She verbalized agreement of the treatment plan. The patient was discharged home. Medical Decision The patient is a 46 year old female who presents to the ED with complaints of right sided jaw pain. Differentials include trigeminal neuralgia, dental pain, lymphadenitis, Phu's angina. This patient was evaluated and appeared to be in no significant distress. Physical examination is fairly unrevealing. The patient is moderately obese, soap physical examination is felt to be somewhat limited however there is no palpable swelling, erythema visualized or lymphadenopathy. The tooth extraction site seems to be healing well. There is no palpable fluctuance or drainage. Patient does have a mild leukocytosis of uncertain etiology however she did begin Tegretol today which may be contributing. The patient also seems to be in some discomfort, states she has not been sleeping. This may also be stress-induced. The patient is diabetic however at this point she has been refractory to many medications. She was given IV morphine here in the ER and 60 mg of IV Solu-Medrol. The patient wears an insulin pump and will watch her sugars closely. She was discharged on a Medrol Dosepak with a prescription for OxyIR, 20 tablets. It was strongly recommended that she follow with pain management as she has been evaluated by neurosurgery and oral surgery. She has also seen her primary care physician. She was told that this is not an atypical pattern for trigeminal neuralgia. Patient's expectations were addressed. She will be discharged to the care of her and return to the ER for worsening of symptoms or any medical concerns. [place] Drug Monitoring Program Search Results: patient reviewed within database, see additional documentation Drug Monitoring Findings: The patient has had several prescriptions in the past month, but nothing prior. Impression Primary Impression: Right facial pain Additional Impressions: Hyponatremia Diabetes Chronic renal insufficiency Scribe Attestation The scribe's documentation has been prepared under my direction and personally reviewed by me in its entirety. I confirm that the note above accurately reflects all work, treatment, procedures, and medical decision making performed by me. Departure Information Dispostion Home / Self-Care Prescriptions Oxycodone Immediate Rel Tab (ROXICODONE IR) 5 Mg Tab 1-2 TAB PO Q4H Y for Severe Pain, #20 TAB Prov: Odalys Benton M.D. 07/12/17 Methylprednisolone (MEDROL DOSEPAK) 4 Mg Paulo 1 PKT PO UD for 6 Days, #1 PKT Prov: Odalys Benton M.D. 07/12/17 Referrals Dorene Trotter D.O. (PCP) Forms HOME CARE DOCUMENTATION FORM, IMPORTANT VISIT INFORMATION Patient Instructions My [facility] Additional Instructions Diagnosis: Right facial pain, low sodium, chronic renal insufficiency, diabetes Continue Tegretol as prescribed. Medrol dose pack as prescribed. Oxy IR 1-2 tabs every 6 hours as needed for severe pain, do not drive on this medication. Check your blood sugars frequently and correct as needed with your pump. You may drink water, but in moderation as your sodium is low tonight. Consider follow up with Pain Management clinic. See info below. Return to the ED for worsening of symptoms or any medical concerns. Problem Qualifiers
[2017-07-11] MEDS ORDERED: CARB100C2 PO (23:28)
[2017-07-11 23:57] LABS: BASO % 0.4 %; BASO ABS # 0.05 K/uL (0-0.2); COMPLETE YES; EOS % 2.8 %; IG% 0.4 %; LYMPH % 27.8 %; LYMPH ABS # 3.92 K/uL (1.2-3.4); MEAN CELL VOLUME 89.7 fL (80-100); MEAN CORPUSCULAR HEMOGLOBIN 30.9 pg (25-34); MEAN CORPUSCULAR HGB CONC 34.4 g/dl (32-36); MEAN PLATELET VOLUME 9.1 fL (7.4-10.4); MONO % 4.1 %; NEUT % 64.5 %; PLATELET COUNT 340 K/uL (130-400); RED BLOOD COUNT 3.79 M/uL (4.2-5.4); WHITE BLOOD COUNT 14.09 K/uL (4.8-10.8)
[2017-07-12 00:15] LABS: ALT/SGPT 21 U/L (12-78); BLOOD UREA NITROGEN 28 mg/dl (7-18); BUN/CREATININE RATIO 14.5 (10-20); CALCIUM 9.4 mg/dl (8.5-10.1); CARBON DIOXIDE 23 mmol/L (21-32); CHLORIDE 96 mmol/L (98-107); GLUCOSE 114 mg/dl (70-99); POTASSIUM 4.3 mmol/L (3.5-5.1); SODIUM 128 mmol/L (136-145)
[2017-07-12 00:18] LABS: ALKALINE PHOSPHATASE 118 U/L (45-117); AST/SGOT 22 U/L (15-37)
[2017-07-12] MEDS ORDERED: MoRPHine SULFATE 4 MG/ML 1 ML CARP\\VIAL IV STA (00:51)
[2017-07-12] MEDS ORDERED: METH4PAK PO (01:47)
[2017-07-12] MEDS ORDERED: OXYC1TAB3 PO (01:47)
[2017-07-12 01:50] VITALS: BP 132/76; PULSE 75; O2SAT 95
== END 2017-07-12 02:06 | disposition home or self-care (01) ==
LOC: C.EDB 22:19
DX: R51 Headache (principal); E87.1 Hypo-osmolality and hyponatremia; E11.9 Type 2 diabetes mellitus without complications; I12.9 Hypertensive chronic kidney disease with stage 1 through stage 4 chronic kidney disease, or unspecified chronic kidney disease; N18.3 Chronic kidney disease, stage 3 (moderate); E78.5 Hyperlipidemia, unspecified; Z86.19 Personal history of other infectious and parasitic diseases; Z98.51 Tubal ligation status; Z96.652 Presence of left artificial knee joint; Z79.4 Long term (current) use of insulin; Z79.899 Other long term (current) drug therapy; Z83.3 Family history of diabetes mellitus; Z82.49 Family history of ischemic heart disease and other diseases of the circulatory system

== ENCOUNTER 2017-07-28 14:15 | Emergency (ER) | payer OTHER ==
[~2017-07-28] VITALS: Ht 160 cm; Wt 88.1 kg
[~2017-07-28 14:15] MED LIST changes: -AMT10 PO; -BND25 PO; +CARB100C2 PO; +DIPH25CA5 PO; +OXYC1TAB3 PO
[2017-07-28 14:30] VITALS: TEMP 36.6; Ht 160 cm; Wt 88.1 kg
[2017-07-28] MEDS ORDERED: FURO-85 PO (14:56)
[2017-07-28] MEDS ORDERED: ONDANSETRON 4MG OD TAB PO STA (15:18)
[2017-07-28] MEDS ORDERED: HYDROmorphone INJ 1 MG/ML SYR IM STA (15:18)
[2017-07-28] MEDS ORDERED: ONDA4TAB10 SL (15:22)
[2017-07-28 15:56] VITALS: BP 127/83; PULSE 80; O2SAT 100
--- NOTE | 2017-07-28 16:13 | EMERGENCY ROOM VISIT NOTE ---
History First contact with patient: 14:33 Chief Complaint: DENTAL PAIN Stated Complaint: FACIAL PAIN, NAUSEA History of Present Illness The patient is a 46 year old female who presents to the Emergency Room with complaints of persistent right or jaw pain since the end of May after having a dental extraction. She also reports recent nausea as well. The patient and report that they have jumped through many hoops with her situation, and are extremely frustrated. The patient was recently admitted for kidney problems. She has seen a neurologist and oral surgeon, and most recently was also evaluated at the [facility]. The patient reports that she is taking Tegretol, and was recently prescribed Percocets by her family doctor for the pain. The patient reports that she now cannot tolerate the pain, and presents to the emergency department, rating her discomfort a 10 out of 10. She denies any fever, headache, difficulty swallowing or facial edema. She reports significant burning sensation in the right lower jaw region. She has been swishing her mouth with water to help with the pain. Review of Systems 10 system review was performed and was negative except for pertinent positives and negatives as indicated in history of present illness Past Medical/Surgical History Medical Problems: (1) CKD (chronic kidney disease) stage 3, GFR 30-59 ml/min (2) Diabetes (3) HTN (hypertension) (4) Hyperlipidemia (5) Infection of tooth (6) Obesity (7) Retinopathy (8) S/p dental crown (9) Tubal (10) Tubal (11) Vitamin D deficiency Surgical Problems: (1) H/O dilation and curettage (2) H/O laparoscopy (3) History of arthroplasty of left knee Family History Diabetes mellitus FH: myocardial infarction FHx: hyperlipidemia Hypertension Social History Smoking Status: Never Smoker Alcohol Use: none Drug Use: none Marital Status: Housing Status: lives with family Occupation Status: employed Current/Historical Medications Scheduled Atorvastatin (Lipitor), 20 MG PO QPM Carbamazepine (Tegretol), 100 MG PO BID Diphenhydramine Hcl (Benadryl), 25 MG PO HS Furosemide (Lasix), 20 MG PO DAILY Insulin Aspart (novoLOG INSULIN PUMP ), 1 EA N/A UD Lisinopril (Zestril), 20 MG PO DAILY Ondasetron Odt (Zofran Odt), 4 MG SL Q6H Scheduled PRN Oxycodone Immediate Rel Tab (Roxicodone Ir), 1-2 TAB PO Q4H PRN for Severe Pain Physical Exam Vital Signs Date Time Temp Pulse Resp B/P (MAP) Pulse Ox O2 Delivery O2 Flow Rate FiO2 07/28/17 14:30 36.6 87 20 155/94 99 Room Air Physical Exam CONSTITUTIONAL: Healthy and well nourished. Alert and oriented X 3 with flat affect. HEENT: Normocephalic, atraumatic. Pupils equal, round and reactive. No facial edema appreciated. OROPHARYNX: No obvious gingival erythema, buccal mucosal changes or other concerning findings. NECK: Full active range of motion without discomfort. INTEGUMENTARY: No rash or other significant dermatologic conditions noted. NEUROLOGIC: No focal neurologic deficits noted. Medical Decision & Procedures Medications Administered Medications (Trade) Dose Ordered Sig/Soledad Route Start Time Stop Time Status Last Admin Dose Admin Hydromorphone HCl (Dilaudid Inj) 1 mg ONE STAT IM 07/28/17 15:18 07/28/17 15:20 DC 07/28/17 15:36 1 MG Ondansetron HCl (Zofran Odt) 4 mg NOW STAT PO 07/28/17 15:18 07/28/17 15:20 DC 07/28/17 15:36 4 MG ED Course Patient history and physical exam were performed. Nurse's notes were reviewed. Vital signs were reviewed, showing a blood pressure 155/94. The patient appears quite frustrated, but the in fact is quite confrontational on my initial exam. I did review prior medical records, showing that the patient has had several emergency department visits over the past 2 months, and was admitted for an acute kidney injury. I also see that the patient was seen at the [facility] [address] Wright. Reviewing her note shows that she suggested a third cranial nerve block, possibly an addition of antidepressant "to diminish her pain burden". It was noted that the patient deferred both of those options, and preferred to continue with chiropractic treatment. The patient now admits that she has had no relief, and has rescheduled an appointment next Monday for the nerve block. The again keeps addressing pain management needs. Review of the [place] Prescription Drug Monitoring Program shows that the patient has had 6 prescriptions by 5 different providers over the past 1.5 months. Her latest prescription for OxyIR 5 mg was written by one of our ED physicians and filled on 07/12/17. She has also been provided 3 prescriptions from her PCP's office. At this point, I offered to call and speak with Dr. Wright and Dr. Trotter. The patient was in agreement. I initially tried to contact Dr. Wright without success. I then spoke with an office nurse who suggested that I call Dr. Em at [facility] (extension [phone]). He did not answer the call or overhead page. I then recalled Dr. Wright's office who stated that they would have Dorene Hensley PA-C call when she got back into the office within approximately 15 minutes. During this time, I also called and spoke with Dr. Trotter's nurse, who transferred me to the patient's caser, Kelly Sutherland PA-C. Kelly gave me a long extensive history of this patient's case, reporting that she has had multiple referrals for her condition. Their office also refilled a prescription for OxyIR 5 mg every 8 hours, dispensed #20 that was electronically transferred to the [facility] pharmacy on [facility]. She also reports that the patient and were to receive a phone call today from the [facility] care system with an interview to occur today between 3 and 5 PM, and hopes that the patient can be referred to another specialist regarding her neuralgia. Otherwise they're office will keep close contact with the patient, and have her continue with the pain clinic evaluation. I then received a phone call from Dorene Hensley PA-C who recommended that the patient keep her appointment next Monday for a nerve block. She suggested that I not provide any additional antidepressant prescriptions until they see if the nerve block is effective as antidepressants take a while to help with neurogenic pain. I will back and discussed this further with the patient. Her was on the phone with [facility]. The patient was advised of her opioid prescription. She was offered additional pain management while in the emergency department, and agreed. She received IM Dilaudid and Zofran ODT as she reports that morphine in the past has not helped with her pain. The patient was instructed to get her prescription OxyIR filled, and keep her appointment next Monday with the pain clinic. The patient voiced understanding of all discharge instructions, and rated her discomfort an 8 out of 10 at the time of discharge, being discharged shortly after medication administration. Medical Decision [place] Drug Monitoring Program Search Results: patient reviewed within database, see additional documentation Medication Reconcilliation Current Medication List: was personally reviewed by me Blood Pressure Screening Patient's blood pressure: Elevated blood pressure Impression Primary Impression: Neuropathic pain, third cranial nerve Departure Information Dispostion Home / Self-Care Prescriptions Ondasetron Odt (ZOFRAN ODT) 4 Mg Tab 4 MG SL Q6H for Nausea, #20 TAB Prov: Wilfredo Membreno PA 07/28/17 Referrals Dorene Trotter D.O. (PCP) Ani Wright, DO Forms HOME CARE DOCUMENTATION FORM, IMPORTANT VISIT INFORMATION Patient Instructions My [facility] Additional Instructions A prescription for OxyIR was sent to the [facility] [place] pharmacy by your PCP's office. Keep your appointment on Monday, 08/01 at 8 AM for a nerve block by Dr. Wright. Take Zofran 4 mg ODT as prescribed and as needed for nausea.
== END 2017-07-28 15:57 | disposition home or self-care (01) ==
LOC: C.EDB 14:16 → C.EDD 15:57
DX: M79.2 Neuralgia and neuritis, unspecified (principal); N18.3 Chronic kidney disease, stage 3 (moderate); E11.22 Type 2 diabetes mellitus with diabetic chronic kidney disease; I12.9 Hypertensive chronic kidney disease with stage 1 through stage 4 chronic kidney disease, or unspecified chronic kidney disease; E78.5 Hyperlipidemia, unspecified; E66.9 Obesity, unspecified; E55.9 Vitamin D deficiency, unspecified; H35.00 Unspecified background retinopathy; Z79.4 Long term (current) use of insulin; Z96.41 Presence of insulin pump (external) (internal); Z83.3 Family history of diabetes mellitus; Z82.49 Family history of ischemic heart disease and other diseases of the circulatory system

== ENCOUNTER → 2017-09-22 | Outpatient (CLI) | payer OTHER ==
[~2017-09-22] MED LIST changes: -ACET-1256 PO; -ATOR-22 PO; +FURO-85 PO; +ONDA4TAB10 SL
--- NOTE | 2017-09-22 10:16 | DIAGNOSTIC IMAGING REPORT ---
MRA HEAD WITHOUT CONTRAST HISTORY: Trigeminal neuralgia. Pain. ATYPICAL TIG NEURALGIA TECHNIQUE: 3-D [id number] MRA of the brain was performed without contrast. COMPARISON STUDY: None. FINDINGS: Visualized intracranial internal carotid arteries, distal vertebral arteries, and basilar artery are widely patent. There is no significant stenosis, occlusion, or aneurysm seen within the bilateral ACAs, MCAs, or senior field engineer. IMPRESSION: No significant stenosis, occlusion, or aneurysm within the [place] of [place]. Normal study The above report was generated using voice recognition software. It may contain grammatical, syntax or spelling errors. Electronically signed by: John Dykes M.D. 09/22/2017 10:15 AM Dictated Date/Time: 09/22/2017 10:12 AM
--- NOTE | 2017-09-22 11:03 | DIAGNOSTIC IMAGING REPORT ---
BRAIN W/O FOR TRIGEMINAL HISTORY: 47 years-old Female ATYPICAL TIG NEURALGIA right-sided facial pain since prior tooth extraction May 2017. COMPARISON: MRI of the head of same day TECHNIQUE: Multiplanar multisequence MRI the brain was obtained without contrast utilizing trigeminal protocol. FINDINGS: No restricted diffusion to suggest acute infarction. The midline structures including the corpus callosum, brainstem, optic chiasm, pineal gland, pituitary gland and infundibulum appear unremarkable in the sagittal T1 series. No cerebellar tonsillar herniation. No significant degenerative changes of the imaged cervical spine. No acute intracranial hemorrhage, midline shift, abnormal extra-axial collections, hydrocephalus or intracranial mass. No significant signal amount of the brain parenchyma identified. The bilateral 5th cranial nerves appear to be within normal limits, notably the cisternal portions are unremarkable as they enter Meckel's cave bilaterally. No cerebellar pontine angle mass lesions identified. The bilateral 7th and 8th cranial nerves appear within normal limits as do the bilateral internal auditory canals. Major flow voids at the level the skull base appear patent. Mild mucosal thickening of the inferior right maxillary antrum. Mastoid air cells are clear. The scalp, calvarium and soft tissues are unremarkable. Indeterminate 6 mm area of slightly increased T2 signal is noted involving the right parietal calvarium which may reflect an arachnoid granulation.] IMPRESSION: 1. No acute intracranial abnormality identified. Unremarkable appearance of the bilateral trigeminal nerves without focal mass identified. 2. Mild mucosal thickening of the inferior left maxillary antrum. The above report was generated using voice recognition software. It may contain grammatical, syntax or spelling errors. Electronically signed by: Vaughn Dukes M.D. 09/22/2017 11:02 AM Dictated Date/Time: 09/22/2017 10:28 AM
== END | disposition home or self-care (01) ==
LOC: C.MRIBC 08:51
PROVIDERS: ATTEND Psychiatry & Neurology Neurology
DX: G50.8 Other disorders of trigeminal nerve (principal)

== ENCOUNTER 2017-09-30 02:56 | Emergency (ER) | payer OTHER ==
[~2017-09-30] VITALS: Ht 160 cm; Wt 104.6 kg
[2017-09-30 03:00] VITALS: TEMP 37; Ht 160 cm; Wt 104.6 kg
[2017-09-30] MEDS ORDERED: METOCLOPRAMIDE HCL INJ 5 MG/ML 2 ML VIAL IV STA (03:06)
[2017-09-30] MEDS ORDERED: SODIUM CHLORIDE 0.9% 1000ML 1,000 ML IV STA (03:06)
[2017-09-30] MEDS ORDERED: DICYCLOMINE HCL 10 MG/ML 2 ML AMP IM ONE (03:15)
[2017-09-30 03:45] VITALS: O2SAT 97
[2017-09-30 03:51] LABS: BASO % 0.3 %; BASO ABS # 0.02 K/uL (0-0.2); COMPLETE YES; EOS % 0.5 %; IG% 0.4 %; LYMPH ABS # 1.25 K/uL (1.2-3.4); MEAN CELL VOLUME 92.9 fL (80-100); MEAN CORPUSCULAR HEMOGLOBIN 31.1 pg (25-34); MEAN CORPUSCULAR HGB CONC 33.5 g/dl (32-36); MEAN PLATELET VOLUME 9.4 fL (7.4-10.4); MONO % 4.6 %; NEUT % 78.2 %; PLATELET COUNT 277 K/uL (130-400); RED BLOOD COUNT 3.66 M/uL (4.2-5.4); WHITE BLOOD COUNT 7.79 K/uL (4.8-10.8)
[2017-09-30 04:10] LABS: ALT/SGPT 21 U/L (12-78); AST/SGOT 17 U/L (15-37); BLOOD UREA NITROGEN 35 mg/dl (7-18); BUN/CREATININE RATIO 15.2 (10-20); CALCIUM 8.5 mg/dl (8.5-10.1); CARBON DIOXIDE 22 mmol/L (21-32); CHLORIDE 108 mmol/L (98-107); CREATININE 2.31 mg/dl (0.60-1.20); GLUCOSE 118 mg/dl (70-99); POTASSIUM 4.5 mmol/L (3.5-5.1); SODIUM 137 mmol/L (136-145)
[2017-09-30 04:13] LABS: ALKALINE PHOSPHATASE 130 U/L (45-117)
[2017-09-30 04:16] LABS: PREG INTERNAL NEGATIVE QC NEG CLEAR BACKGROUND; PREG INTERNAL POSITIVE QC POS CONTROL LINE
[2017-09-30] MEDS ORDERED: CARB200T3 PO (04:38)
[2017-09-30] MEDS ORDERED: FURO20TA PO (04:40)
[2017-09-30] MEDS ORDERED: ATOR-22 PO (04:42)
--- NOTE | 2017-09-30 05:03 | EMERGENCY ROOM VISIT NOTE ---
History First contact with patient: 03:06 Chief Complaint: DIARRHEA Stated Complaint: DIARRHEA History of Present Illness The patient is a 47 year old female who presents to the Emergency Room with complaints of several episodes of diarrhea that is nonbloody nonblack and tarry non-mucousy in nature and nausea with abdominal cramping for the past day. Patient has had recent antibiotics. No one else in the family is sick. Patient 's concerned that she might have renal failure again. Patient says abdominal pain as cramping, ranging in severity 4 out of 10 throughout the abdomen. Nothing makes it better or worse. Patient denies chest pain, dyspnea, fever, chills, vomiting, back pain, urinary symptoms. She is tolerating by mouth fluids and food. Review of Systems See HPI for pertinent positives & negatives. A total of 10 systems reviewed and were otherwise negative. Past Medical/Surgical History Medical Problems: (1) CKD (chronic kidney disease) stage 3, GFR 30-59 ml/min (2) Diabetes (3) HTN (hypertension) (4) Hyperlipidemia (5) Infection of tooth (6) Obesity (7) Retinopathy (8) S/p dental crown (9) Tubal (10) Tubal (11) Vitamin D deficiency Surgical Problems: (1) H/O dilation and curettage (2) H/O laparoscopy (3) History of arthroplasty of left knee Family History Diabetes mellitus FH: myocardial infarction FHx: hyperlipidemia Hypertension Social History Smoking Status: Never Smoker Smokeless Tobacco Use: No Alcohol Use: none Drug Use: none Marital Status: Housing Status: lives with family Occupation Status: employed Current/Historical Medications Scheduled Atorvastatin (Lipitor), 20 MG PO DAILY Carbamazepine (Tegretol), 300 MG PO BID Diphenhydramine Hcl (Benadryl), 25 MG PO HS Insulin Aspart (novoLOG INSULIN PUMP ), 1 EA N/A UD Lisinopril (Zestril), 20 MG PO DAILY Scheduled PRN Furosemide (Lasix), 10 MG PO DAILY PRN for EDEMA Physical Exam Vital Signs Date Time Temp Pulse Resp B/P (MAP) Pulse Ox O2 Delivery O2 Flow Rate FiO2 09/30/17 04:26 91 16 95 Room Air 09/30/17 04:01 109/57 09/30/17 03:45 97 Room Air 09/30/17 03:28 91 09/30/17 03:28 117/70 09/30/17 03:00 37.0 98 16 104/70 98 Room Air Physical Exam VITALS: Vitals are noted on the nurse's note and reviewed by myself. Vital signs stable. GENERAL: Pleasant female, in no acute distress, nondiaphoretic, well-developed well-nourished. SKIN: The skin was without rashes, erythema, edema, or bruising. There is no tenting of the skin. Capillary reflex less than 2 seconds. HEAD: Normocephalic atraumatic. EARS: External auditory canals clear, tympanic membranes pearly smith without erythema or effusion bilaterally. EYES: Pupils equal round and reactive to light and accommodation. Conjunctivae without injection, sclerae without icterus. Extraocular movements intact. NOSE: Patent, turbinates without inflammation or discharge. MOUTH: Mucous membranes moist. Pharynx without erythema or exudate. Uvula midline. Airway patent. Tongue does not deviate. NECK: Supple without nuchal rigidity. No lymphadenopathy. No thyromegaly. Cervical spine is nontender. No JVD. HEART: Regular rate and rhythm LUNGS: Clear to auscultation bilaterally without wheezes, rales or rhonchi. No dullness to percussion. No retractions or accessory muscle use. ABDOMEN: Positive bowel sounds x 4. Normal tympanic percussion. Soft, mild diffuse tenderness without localized pain, no CVA tenderness, without masses or organomegaly. Figueroa sign negative. No guarding or rebound tenderness. MUSCULOSKELETAL: No muscle atrophy, erythema, or edema noted. NEURO: Patient was alert and oriented to person place and time. Normal sensation to light and sharp touch. No focal neurological deficits. Medical Decision & Procedures Laboratory Results 09/30/17 03:35 Red Blood Count 3.66, Mean Corpuscular Volume 92.9, Mean Corpuscular Hemoglobin 31.1, Mean Corpuscular Hemoglobin Concent 33.5, Mean Platelet Volume 9.4, Neutrophils (%) (Auto) 78.2, Lymphocytes (%) (Auto) 16.0, Monocytes (%) (Auto) 4.6, Eosinophils (%) (Auto) 0.5, Basophils (%) (Auto) 0.3, Neutrophils # (Auto) 6.09, Lymphocytes # (Auto) 1.25, Monocytes # (Auto) 0.36, Eosinophils # (Auto) 0.04, Basophils # (Auto) 0.02 09/30/17 03:35 Test 09/30/17 03:35 White Blood Count 7.79 K/uL (4.8-10.8) Red Blood Count 3.66 M/uL (4.2-5.4) Hemoglobin 11.4 g/dL (12.0-16.0) Hematocrit 34.0 % (37-47) Mean Corpuscular Volume 92.9 fL (80-100) Mean Corpuscular Hemoglobin 31.1 pg (25-34) Mean Corpuscular Hemoglobin Concent 33.5 g/dl (32-36) Platelet Count 277 K/uL (130-400) Mean Platelet Volume 9.4 fL (7.4-10.4) Neutrophils (%) (Auto) 78.2 % Lymphocytes (%) (Auto) 16.0 % Monocytes (%) (Auto) 4.6 % Eosinophils (%) (Auto) 0.5 % Basophils (%) (Auto) 0.3 % Neutrophils # (Auto) 6.09 K/uL (1.4-6.5) Lymphocytes # (Auto) 1.25 K/uL (1.2-3.4) Monocytes # (Auto) 0.36 K/uL (0.11-0.59) Eosinophils # (Auto) 0.04 K/uL (0-0.5) Basophils # (Auto) 0.02 K/uL (0-0.2) RDW Standard Deviation 42.0 fL (36.4-46.3) RDW Coefficient of Variation 12.3 % (11.5-14.5) Immature Granulocyte % (Auto) 0.4 % Immature Granulocyte # (Auto) 0.03 K/uL (0.00-0.02) Anion Gap 7.0 mmol/L (3-11) Est Creatinine Clear Calc Drug Dose 34.4 ml/min Estimated GFR () 28.0 Estimated GFR (Non- 24.2 BUN/Creatinine Ratio 15.2 (10-20) Calcium Level 8.5 mg/dl (8.5-10.1) Total Bilirubin 0.2 mg/dl (0.2-1) Direct Bilirubin < 0.1 mg/dl (0-0.2) Aspartate Amino Transf (AST/SGOT) 17 U/L (15-37) Alanine Aminotransferase (ALT/SGPT) 21 U/L (12-78) Alkaline Phosphatase 130 U/L (45-117) Total Protein 7.1 gm/dl (6.4-8.2) Albumin 2.9 gm/dl (3.4-5.0) Lipase 309 U/L (73-393) Human Chorionic Gonadotropin, Qual NEG (NEG) Medications Administered Medications (Trade) Dose Ordered Sig/Soledad Route Start Time Stop Time Status Last Admin Dose Admin Sodium Chloride 1,000 ml @ 999 mls/hr Q1H1M STAT IV 09/30/17 03:06 09/30/17 04:06 DC 09/30/17 03:49 999 MLS/HR Dicyclomine HCl (Bentyl Inj) 20 mg NOW ONCE IM 09/30/17 03:15 09/30/17 03:16 DC 09/30/17 03:50 20 MG Metoclopramide HCl (Reglan Inj) 10 mg NOW STAT IV 09/30/17 03:06 09/30/17 03:09 DC 09/30/17 03:50 10 MG ED Course Prior records/ancillary studies reviewed. Triage Nursing notes reviewed. Additional history obtained from the family. The patient's history was concerning for diarrhea, and abdominal pain. Differential diagnosis: Etiologies such as diarrheal illness, C. difficile, acute renal injury, gastroenteritis, food borne illness, infections, appendicitis, diverticulitis, inflammatory bowel disease, obstruction, GI bleed, biliary pathology, as well as others were entertained. Physical examination findings: As above. Abdominal examination revealed no localized pain. Vital signs reviewed and revealed mild tachycardia. ER treatment provided: IV hydration 1 L NSS. Bentyl, Reglan On reassessment the patient felt better. Patient was tolerating p.o. intake. Diagnostics interpretation by me: The labs revealed creatinine 2.3 minimally elevated per chart review. Patient' s creatinine has been running from 1.8 up to 4. Negative C. difficile This appears to be consistent with diarrhea. Patient did not have acute abdomen on exam. She is well-appearing. She is tolerating fluids. She was advised to take medications as directed, rest, stay well-hydrated and follow-up family care in a few days or here in the ER sooner for abdominal pain, fevers, vomiting, worsening signs or symptoms or as needed. By the evaluation outlined above emergent etiologies such as appendicitis, diverticulitis, obstruction, cardiac sources, mesenteric ischemia, aortic pathology, inflammatory bowel disease, renal colic, PUD, biliary pathology, UTI, as well as others were deemed relatively unlikely. The pt informed about the findings as listed above. All questions were answered and pleased with the treatment. Return instructions were outlined and the patient was discharged in stable condition. Outpatient prescription management: Bentyl. Patient has Zofran at home Referral: The patient was referred to their primary care physician for follow-up in 2 to 3 days for a recheck of the current condition. Case reviewed with my attending Medical Decision As above Medication Reconcilliation Current Medication List: was personally reviewed by me Blood Pressure Screening Patient's blood pressure: Normal blood pressure Impression Primary Impression: Diarrhea Departure Information Dispostion Home / Self-Care Condition GOOD Referrals Dorene Trotter D.O. (PCP) Patient Instructions My [facility] Additional Instructions DO NOT drive, drink alcohol, operate machinery, or perform dangerous activities today. You were given medications in the ER that can affect your ability to safely function or operate a vehicle. Bentyl 10 m tablet every 6 hours as needed for abdominal cramping. Zofran(odansetron) tablets 4mg: Take one and allow it to dissolve in your mouth every four to six hours as needed for nausea or vomiting. Rest and drink plenty of fluids as tolerated. Slow sips of water or sports drinks are recommended instead of large amounts all at once. Continue current medications. Once your stomach is settled start with a clear liquid diet (jello, soup broth, etc.) and then advance as tolerated. You should avoid full, heavy meals for about 24 hrs from the time your symptoms resolved. Return to the ER for persistent vomiting, fevers, abdominal pain, chest pains, difficulty breathing, black or bloody stools, worsening of your condition, or as needed. Follow up with your primary physician in 2-3 days for a recheck of your current condition. Problem Qualifiers Primary Impression: Diarrhea Diarrhea type: unspecified type Qualified Codes: R19.7 - Diarrhea, unspecified
[2017-09-30] MEDS ORDERED: BENTYL HOME PACK 10 MG VIAL PO ONE (05:15)
[2017-09-30 05:19] VITALS: BP 96/59; PULSE 78; O2SAT 95
== END 2017-09-30 05:39 | disposition home or self-care (01) ==
LOC: C.EDB 02:57
DX: R19.7 Diarrhea, unspecified (principal); I12.9 Hypertensive chronic kidney disease with stage 1 through stage 4 chronic kidney disease, or unspecified chronic kidney disease; N18.3 Chronic kidney disease, stage 3 (moderate); E78.5 Hyperlipidemia, unspecified; E11.9 Type 2 diabetes mellitus without complications; Z98.51 Tubal ligation status; Z98.890 Other specified postprocedural states; Z96.652 Presence of left artificial knee joint; Z79.4 Long term (current) use of insulin; Z79.899 Other long term (current) drug therapy; Z83.3 Family history of diabetes mellitus; Z82.49 Family history of ischemic heart disease and other diseases of the circulatory system

== ENCOUNTER 2021-04-27 09:15 | Inpatient (IN) ==
[2021-04-27] MEDS ORDERED: FAMOTIDINE 20MG IV PUSH 20 MG/5 ML SYR IV STA (09:57)
[2021-04-27] MEDS ORDERED: SODIUM CHLORIDE 0.9% 1000ML 1,000 ML IV STA (09:57)
[2021-04-27] MEDS ORDERED: ACETAMINOPHEN 1,000 MG/100 ML VIAL IV STA (09:57)
[2021-04-27] MEDS ORDERED: ONDANSETRON INJ 2 MG/ML 2 ML VIAL IV STA (09:59)
[2021-04-27] MEDS ORDERED: dexAMETHasone**PF** 10 MG/ML VIAL IV ONE (10:02)
[2021-04-27] MEDS ORDERED: guaiFENesin 600 MG TABCR PO STA (10:02)
[2021-04-27] MEDS ORDERED: ALBUTEROL HFA 8 GM INHALER INH ONE (10:02)
--- NOTE | 2021-04-27 10:21 | Emergency Department Note ---
Impression & Plan COVID-19, Acute kidney injury superimposed on chronic kidney disease, Pneumonia due to COVID-19 virus, Hypoxia ED Provider Note NAME: MARIBEL PEACOCK AGE: 50 SEX: F ARRIVES VIA: Ambulance INFORMANT: Patient, ED PROVIDER(S): Levon Tripp MD CHIEF COMPLAINT: Cough, sob, fevers, bodyaches. PLAN: Disposition: Admit. MEDICAL DECISION MAKING: The patient is a 50-year-old woman with a past medical history of CKD, hyperlipidemia, obesity, diabetes who presents to the emergency department accompanied by her who also presents as a patient each presenting with similar symptoms of fevers, nausea, decreased appetite and oral intake, mild cough, shortness of breath and body aches that for the patient began on Monday. She reports having diarrhea. They deny any COVID-19 exposures. They were seen in the emergency department on Monday for the symptoms and were not tested for COVID-19 because they declined this. They deny any known tick bites but do admit that they work out in the garden. She denies abdominal pain, urinary symptoms, chest pain. She last took acetaminophen last night. On arrival the patient is uncomfortable appearing, afebrile at 37.3 with heart rate in the 90s and O2 saturation 91% on room air placed on 2 L nasal cannula. She appears clinically dry. Lungs with scant intermittent wheeze but is other diaz clear. EKG without overt acute ischemia. CXR Interstitial airspace opacities are seen throughout both lungs, suspicious for Covid-19 PNA. WBC wnl but with lymphopenia to 0.72. H/H, platelets wnl. Chemistry without significant acidosis. Cr. 3.3 increased from recent baseline of 2.5. Electrolytes unremarkable. LFTs without significant abnormality. Troponin negative/undetectable. Lipase wnl. UA without convincing evidence of infection with epithelial cels present. Lyme screen and anaplasma smear negative. Covid-19 pcr positive as was her husbands. Patient somewhat improved after IVF hydration, apap, dexamethasone, albuterol MDI, antiemetics. However, given hypoxia and renal insufficiency, agrees with plan for admission. Danie Felix PAC, with Dr. Jane [facility] hospitalist to evaluate the patient for admission. Triage Nursing notes reviewed and agree them. Prior medical records reviewed Vital Signs: reviewed and remarkable for hypoxia. Differential diagnosis: Viral syndrome, otitis, pharyngitis, pneumonia, influenza, meningitis, urinary tract infection, sepsis, bacteremia, as well as other pathologies. ER treatment provided: See below. Diagnostics interpreted by me: ECG: NSR, 95 bpm, no ectopy, no overt ST elevation or depression. Cardiac Monitoring: An order for continuous cardiac monitoring was placed and demonstrated NSR, 95 bpm, no ectopy, Laboratory studies: See below Imaging studies: See below Consultation(s): Niurka Miranda [facility] PAC, with Dr. Jane, Chan [facility] hospitalist to evaluate the patient for admission. HPI: The patient is a 50-year-old woman with a past medical history of CKD, hyperlipidemia, obesity, diabetes who presents to the emergency department ac companied by her who also presents as a patient each presenting with similar symptoms of fevers, nausea, decreased appetite and oral intake, mild cough, shortness of breath and body aches that for the patient began on Monday. She reports having diarrhea. They deny any COVID-19 exposures. They were seen in the emergency department on Monday for the symptoms and were not tested for COVID-19 because they declined this. They deny any known tick bites but do admit that they work out in the garden. She denies abdominal pain, urinary symptoms, chest pain. She last took acetaminophen last night. ROS: See above HPI for pertinent positives & negatives. A total of 10 systems reviewed and were otherwise negative. PAST MEDICAL HISTORY:See Below PAST SURGICAL HISTORY:See Below FAMILY HISTORY:See Below SOCIAL HISTORY:See Below HOME MEDICATIONS:See Below ALLERGIES:See Below VITALS:See Below PHYSICAL EXAMINATION: GENERAL: Awake, alert, ill-appearing, in no distress HENT: Normocephalic, atraumatic. Oropharynx with dry mucous membranes and otherwise unremarkable. EYES: Normal conjunctiva. Sclera non-icteric. NECK: Supple. No nuchal rigidity. FROM. No JVD. RESPIRATORY: Scant intermittent wheeze otherwise clear to auscultation. CARDIAC: Regular rate, normal rhythm. Extremities warm and well perfused. Pulses equal. ABDOMEN: Soft, non-distended. No tenderness to palpation. No rebound or guarding. No masses. RECTAL: Deferred. MUSCULOSKELETAL: Chest examination reveals no tenderness. The back is symmetrical on inspection without obvious abnormality. There is no CVA tenderness to palpation. No joint edema. LOWER EXTREMITIES: Calves are equal size bilaterally and non-tender. No edema. No discoloration. NEURO: Normal sensorium. No sensory or motor deficits noted. SKIN: No rash or jaundice noted. Levon Tripp MD Past Med/Surg History Medical History CKD (chronic kidney disease) stage 3, GFR 30-59 ml/min DM II (diabetes mellitus, type II), controlled HTN (hypertension) Obesity S/p dental crown Surgical History H/O dilation and curettage H/O: hysterectomy History of arthroplasty of left knee Family History Other Diabetes Hypertension Stroke Social History Smoking Status: Never smoker Hx Alcohol Use: No Hx Substance Use: No Preferred Language: Turkish Communication Ability: Effective Beliefs That Will Affect Care: None Current Living Situation: Spouse Other Information That Helps Us Care for You: No Feels Safe at Home: Yes Safety Concerns: Feels Safe At This Time Assistive Devices: Glasses Allergies Allergies Allergy/AdvReac Type Severity Reaction Status Date / Time No Known Allergies Allergy Verified 04/27/21 13:07 Home Meds Home Medications Medication Instructions Recorded Confirmed ascorbic acid (vitamin C) 1,000 mg 1 g PO HS 01/28/21 04/27/21 tablet (Vitamin C) atorvastatin 40 mg tablet 40 mg PO HS 01/28/21 04/27/21 cholecalciferol (vitamin D3) 25 25 mcg PO HS 01/28/21 04/27/21 mcg (1,000 unit) capsule (Vitamin D3) diphenhydramine HCl 25 mg capsule 50 mg PO HS 01/28/21 04/27/21 (Benadryl) famotidine 20 mg tablet 20 mg PO BID 01/28/21 04/27/21 insulin aspart U-100 100 unit/mL 0 unit CONTINUOUS SUBCUTANEOUS 01/28/21 04/27/21 subcutaneous solution INFUSION CONTINOUS lisinopril 5 mg tablet 5 mg PO HS 01/28/21 04/27/21 selenium 200 mcg tablet 200 mcg PO HS 04/25/21 04/27/21 furosemide 20 mg tablet (Lasix) 10 - 20 mg PO DAILY PRN 04/27/21 04/27/21 Results & Data (ED) Vital Signs Vital Signs - 24 hr 04/27/21 09:27 04/27/21 10:56 04/27/21 11:00 Temperature 37.3 C Temperature Source Oral Pulse Rate 98 H 92 H Pulse Rate from SpO2 Sensor 93 H Pulse Rhythm Regular Pulse Strength Normal Respiratory Rate 18 23 Respiratory Effort / Characteristics Non-Labored Spontaneous Respiratory Depth Normal Respiratory Pattern Regular Blood Pressure 125/61 118/74 Blood Pressure Mean 82 88 Pulse Oximetry 91 91 100 Oxygen Delivery Method Room Air Room Air Oxygen Flow Rate Sepsis Recent Fever Within 48 Hours Yes Sepsis New/Unexplained Change in Mental Status No Sepsis Action Taken by Nursing No Action Required 04/27/21 11:30 04/27/21 12:00 04/27/21 12:30 Temperature Temperature Source Pulse Rate 92 H 87 92 H Pulse Rate from SpO2 Sensor 95 H 87 92 H Pulse Rhythm Pulse Strength Respiratory Rate 14 17 25 H Respiratory Effort / Characteristics Respiratory Depth Respiratory Pattern Blood Pressure 104/43 L 115/57 L 97/57 L Blood Pressure Mean 63 76 70 Pulse Oximetry 100 96 98 Oxygen Delivery Method Room Air Room Air Oxygen Flow Rate 2 2 Sepsis Recent Fever Within 48 Hours Sepsis New/Unexplained Change in Mental Status Sepsis Action Taken by Nursing Laboratory Data Attestation: I reviewed the patient's lab results. Result diagrams: 04/27/21 10:40 04/27/21 10:40 Lab Results 04/27/21 04/27/21 04/27/21 Range/Units 10:40 10:40 10:40 WBC 5.20 (4.8-10.8) K/uL RBC 4.18 L (4.2-5.4) M/uL Hgb 12.8 (12.0-16.0) g/dL Hct 38.8 (37-47) % MCV 92.8 (80-100) fL MCH 30.6 (25-34) pg MCHC 33.0 (32-36) g/dL RDW Std Deviation 43.1 (36.4-46.3) fL RDW Coeff of Abisai 12.7 (11.5-14.5) % Plt Count 155 (130-400) K/uL MPV 10.4 (7.4-10.4) fL Immature Gran % (Auto) 0.0 % Neut % (Auto) 83.5 % Lymph % (Auto) 13.8 % [place] % (Auto) 2.7 % Eos % (Auto) 0.0 % Baso % (Auto) 0.0 % Neut # (Auto) 4.34 (1.4-6.5) K/uL Lymph # (Auto) 0.72 L (1.2-3.4) K/uL [place] # (Auto) 0.14 (0.11-0.59) K/uL Eos # (Auto) 0.00 (0-0.5) K/uL Baso # (Auto) 0.00 (0-0.2) K/uL Immature Gran # (Auto) 0.00 (0.00-0.02) K/uL Sodium 135 L (136-145) mmol/L Potassium 4.4 (3.5-5.1) mmol/L Chloride 109 H (98-107) mmol/L Carbon Dioxide 20 L (21-32) mmol/L Anion Gap 7.0 (3-11) BUN 29 H (7-18) mg/dl Creatinine 3.34 H (0.6-1.2) mg/dl Est Cr Clr Drug Dosing 22.9 ml/min Est GFR ( Amer) 17.6 ml/min Est GFR (Non-Af Amer) 15.2 ml/min BUN/Creatinine Ratio 8.8 L (10-20) Glucose 137 H (70-99) mg/dl Calcium 8.6 (8.5-10.1) mg/dl Phosphorus 2.4 L (2.5-4.9) mg/dl Magnesium 2.1 (1.8-2.4) mg/dl Total Bilirubin 0.4 (0.2-1) mg/dl Direct Bilirubin 0.1 (0-0.2) mg/dl AST 22 (15-37) U/L ALT 20 (12-78) U/L Alkaline Phosphatase 96 (45-117) U/L Troponin I < 0.015 (0-0.045) ng/ml Total Protein 7.8 (6.4-8.2) gm/dl Albumin 3.2 L (3.4-5.0) gm/dl Globulin 4.6 H (2.5-4.0) gm/dl Albumin/Globulin Ratio 0.7 L (0.9-2) Lipase 229 (73-393) U/L Anaplasma Smear See Comment Lyme Disease IgG Ab Negative (Negative) Lyme Disease IgM Ab Negative (Negative) COVID-19 Eval Order SARS-CoV-2 (PCR) (Negative) 04/27/21 04/27/21 Range/Units 11:00 11:00 WBC (4.8-10.8) K/uL RBC (4.2-5.4) M/uL Hgb (12.0-16.0) g/dL Hct (37-47) % MCV (80-100) fL MCH (25-34) pg MCHC (32-36) g/dL RDW Std Deviation (36.4-46.3) fL RDW Coeff of Abisai (11.5-14.5) % Plt Count (130-400) K/uL MPV (7.4-10.4) fL Immature Gran % (Auto) % Neut % (Auto) % Lymph % (Auto) % [place] % (Auto) % Eos % (Auto) % Baso % (Auto) % Neut # (Auto) (1.4-6.5) K/uL Lymph # (Auto) (1.2-3.4) K/uL [place] # (Auto) (0.11-0.59) K/uL Eos # (Auto) (0-0.5) K/uL Baso # (Auto) (0-0.2) K/uL Immature Gran # (Auto) (0.00-0.02) K/uL Sodium (136-145) mmol/L Potassium (3.5-5.1) mmol/L Chloride (98-107) mmol/L Carbon Dioxide (21-32) mmol/L Anion Gap (3-11) BUN (7-18) mg/dl Creatinine (0.6-1.2) mg/dl Est Cr Clr Drug Dosing ml/min Est GFR ( Amer) ml/min Est GFR (Non-Af Amer) ml/min BUN/Creatinine Ratio (10-20) Glucose (70-99) mg/dl Calcium (8.5-10.1) mg/dl Phosphorus (2.5-4.9) mg/dl Magnesium (1.8-2.4) mg/dl Total Bilirubin (0.2-1) mg/dl Direct Bilirubin (0-0.2) mg/dl AST (15-37) U/L ALT (12-78) U/L Alkaline Phosphatase (45-117) U/L Troponin I (0-0.045) ng/ml Total Protein (6.4-8.2) gm/dl Albumin (3.4-5.0) gm/dl Globulin (2.5-4.0) gm/dl Albumin/Globulin Ratio (0.9-2) Lipase (73-393) U/L Anaplasma Smear Lyme Disease IgG Ab (Negative) Lyme Disease IgM Ab (Negative) COVID-19 Eval Order Covid19 at [facility] SARS-CoV-2 (PCR) POSITIVE A* (Negative) Administered Medications Atorvastatin Calcium (Atorvastatin 40 Mg Tab) 40 mg PO HS [facility] Stop: 05/27/21 20:59 Last Admin: 04/27/21 20:23 Dose: 40 mg Documented by: [id number] Heparin Sodium (Porcine) (Heparin Sod 5,000 Unit/0.5 Ml Vial) 7,500 units SQ Q8 [facility] Stop: 05/27/21 15:44 Last Admin: 04/27/21 20:23 Dose: 7,500 units Documented by: [id number] Admin: 04/27/21 17:58 Dose: 7,500 units Documented by: [id number] Sodium Chloride (Nss 1000ml) 1,000 mls @ 125 mls/hr IV .Q8H [facility] Stop: 05/27/21 12:44 Last Admin: 04/27/21 20:29 Dose: 125 mls/hr Documented by: [id number] Infusion: 04/27/21 20:29 Dose: 125 mls/hr Documented by: [id number] Admin: 04/27/21 13:04 Dose: 125 mls/hr Documented by: [id number] Vitamin D (Cholecalciferol 1,000 Units 25 Mcg Tab) 1,000 units PO HS [facility] Stop: 05/27/21 20:59 Last Admin: 04/27/21 20:23 Dose: 1,000 units Documented by: [id number] Discontinued Medications Albuterol (Albuterol Hfa 8 Gm Inhaler) 2 puffs INH NOW ONE Stop: 04/27/21 10:03 Last Admin: 04/27/21 11:31 Dose: 2 puffs Documented by: [id number] Dexamethasone Sodium Phosphate (DexamethasonePf 10 Mg/Ml Vial) 10 mg IV NOW ONE Stop: 04/27/21 10:03 Last Admin: 04/27/21 11:31 Dose: 10 mg Documented by: [id number] Guaifenesin (Guaifenesin 600 Mg Tabcr) 600 mg PO NOW STA Stop: 04/27/21 10:03 Last Admin: 04/27/21 11:30 Dose: 600 mg Documented by: [id number] Sodium Chloride (Nss 1000ml) 1,000 mls @ 999 mls/hr IV .Q1H1M STA Stop: 04/27/21 10:57 Last Infusion: 04/27/21 12:37 Dose: 0 mls/hr Documented by: [id number] Admin: 04/27/21 11:29 Dose: 999 mls/hr Documented by: [id number] Acetaminophen (Ofirmev) 1,000 mg in 100 mls @ 400 mls/hr IV NOW STA Stop: 04/27/21 10:11 Last Infusion: 04/27/21 12:37 Dose: 0 mls/hr Documented by: [id number] Admin: 04/27/21 11:28 Dose: 400 mls/hr Documented by: [id number] Famotidine (Pepcid 20mg Iv Push) 20 mg in 5 mls @ 2.5 mls/min IV NOW STA Stop: 04/27/21 09:58 Last Admin: 04/27/21 11:28 Dose: 2.5 mls/min Documented by: [id number] Ondansetron HCl (Ondansetron Inj 2 Mg/Ml 2 Ml Vial) 4 mg IV NOW STA Stop: 04/27/21 10:00 Last Admin: 04/27/21 11:29 Dose: 4 mg Documented by: [id number] Imaging Data Radiologist's Impression: Chest X-Ray 04/27/21 09:57 SINGLE VIEW CHEST CLINICAL HISTORY: Atypical chest pain. Cough and fever. FINDINGS: An AP, portable, upright chest radiograph is compared to study dated 04/25/2021. The cardiomediastinal silhouette is unremarkable. Interstitial airspace opacities are seen throughout both lungs. No large pleural effusion or pneumothorax is seen. The bony thorax is grossly intact. IMPRESSION: Interstitial airspace opacities are seen throughout both lungs. Correlate clinically for evidence of an infectious/inflammatory pneumonitis. Radiographic follow-up to resolution is recommended. ACT 112: Negative or not required by law. Electronically signed by: Isai Johnson M.D. 04/27/2021 11:26 AM Discharge Plan Visit Data Chief Complaint: Illness Stated Complaint: FLU LIKE SX ED Provider: Levon Tripp Discharge Problem: COVID-19, Acute kidney injury superimposed on chronic kidney disease, Pneumonia due to COVID-19 virus, Hypoxia Patient Disposition: Admitted As Inpatient Discharge Instructions Interventions: ED Discharge Assessment Last Done: 04/27/21 14:55
[2021-04-27 10:54] LABS: Hematocrit (blood only) 38.8 % (37-47); Hemoglobin 12.8 g/dL (12.0-16.0); Lymphocytes # (auto) 0.72 K/uL (1.2-3.4); Lymphocytes % (auto) 13.8 %; Mean Corpuscular Hemoglobin 30.6 pg (25-34); Mean Corpuscular Volume 92.8 fL (80-100); Mean Platelet Volume 10.4 fL (7.4-10.4); Monocytes # (auto) 0.14 K/uL (0.11-0.59); Monocytes % (auto) 2.7 %; Neutrophils # (auto) 4.34 K/uL (1.4-6.5); Neutrophils % (auto) 83.5 %; Platelet Count 155 K/uL (130-400); RDW Coefficient of Variation 12.7 % (11.5-14.5); RDW Standard Deviation 43.1 fL (36.4-46.3); Red Blood Count 4.18 M/uL (4.2-5.4)
[2021-04-27 11:17] LABS: Alanine Aminotransferase 20 U/L (12-78); Albumin Level 3.2 gm/dl (3.4-5.0); Aspartate Aminotransferase 22 U/L (15-37); BUN Creatinine Ratio 8.8 (10-20); Bilirubin Direct 0.1 mg/dl (0-0.2); Blood Urea Nitrogen 29 mg/dl (7-18); Calcium 8.6 mg/dl (8.5-10.1); Carbon Dioxide 20 mmol/L (21-32); Chloride 109 mmol/L (98-107); Creatinine Clr Calc Pharmacy 22.9 ml/min; Est GFR (African American) 17.6 ml/min; Est GFR (Non-African American) 15.2 ml/min; Glucose 137 mg/dl (70-99); Lipase 229 U/L (73-393); Magnesium 2.1 mg/dl (1.8-2.4); Potassium 4.4 mmol/L (3.5-5.1); Sodium 135 mmol/L (136-145)
[2021-04-27 11:21] LABS: Albumin Globulin Ratio 0.7 (0.9-2); Alkaline Phosphatase 96 U/L (45-117); Bilirubin,Total 0.4 mg/dl (0.2-1); Globulin 4.6 gm/dl (2.5-4.0); Phosphorus 2.4 mg/dl (2.5-4.9); Total Protein 7.8 gm/dl (6.4-8.2); Troponin I < 0.015 ng/ml (0-0.045)
--- NOTE | 2021-04-27 11:28 | XRay Report ---
SINGLE VIEW CHEST CLINICAL HISTORY: Atypical chest pain. Cough and fever. FINDINGS: An AP, portable, upright chest radiograph is compared to study dated 04/25/2021. The cardiom ediastinal silhouette is unremarkable. Interstitial airspace opacities are seen throughout both lungs . No large pleural effusion or pneumothorax is seen. The bony thorax is grossly intact. IMPRESSION: Interstitial airspace opacities are seen throughout both lungs. Correlate clinically for evidence of an infectious/inflammatory pneumonitis. Radiographic follow-up to resolution is recommend ed. ACT 112: Negative or not required by law. Electronically signed by: Isai Johnson M.D. 04/27/2021 11:26 AM
[2021-04-27 11:38] LABS: Lyme Ab IgG w/WB Rflx Negative (Negative); Lyme Ab IgM w/WB Rflx Negative (Negative)
--- NOTE | 2021-04-27 12:59 | History & Physical Report ---
Date of Service April 27, 2021 Assessment & Plan (1) COVID-19: Plan: This is a 50yo F with a PMH of DM II, CKD III, HLD and other medical problems listed below who presents with viral symptoms x 6 days and was found to have covid-19 positive PCR test. Saturating 98% on 2L NC - will assess O2 saturation on room air Denies cough or SOB CXR with interstitial airspace opacities are seen throughout both lungs. Correlate clinically for evidence of an infectious/inflammatory pneumonitis No leukocytosis. Procal pending - no indication for antibiotics at this time No evidence of anaplasma on peripheral smear, lyme serology negative Continue dexamethasone, gentle IV fluids, supportive care Covid isolation precautions (2) Acute kidney injury superimposed on chronic kidney disease: Plan: Cr elevated at 3.34 in setting of dehydration (baseline Cr ~mid-2s) Gentle hydration, avoid nephrotoxic agents Monitor daily BMP (3) DM II (diabetes mellitus, type II), controlled: Plan: A1c 7.4 in March 2021 Uses insulin pump - almost out of medication but son to bring from home (will send to pharmacy for labeling) Glycemic consult placed (4) Hyperlipidemia: Plan: Continue statin DVT Ppx: SQ heparin Code status: FULL PCP: Ade Angel Dispo: Admitted to PCU Patient seen in collaboration with Dr. Jane. Please see addendum. History of Present Illness Chief Complaint: viral symptoms Primary Care Provider: Natasha Angel, This is a 50yo F with a PMH of DM II, CKD III, HLD and other medical problems listed below who presents with viral symptoms x 6 days. Patient endorses subjective fever, chills nausea, vomiting and diarrhea. Also endorsing decreased PO intake. Was likely exposed at spiritism 2 Sundays ago. Patient has not received covid vaccine. Went to [facility] ED on Monday for similar symptoms but declined Covid-19 testing at that time. Denies cough, chest pain, abdominal pain, dysuria or constipation. Wears an insulin pump and is almost out of insulin. Son to bring in more medication later today. Allergies Allergy/AdvReac Type Severity Reaction Status Date / Time No Known Allergies Allergy Verified 04/27/21 13:07 Home Medications Medication Instructions Recorded Confirmed Type ascorbic acid (vitamin C) 1,000 mg 1 g PO HS 01/28/21 04/27/21 History tablet (Vitamin C) atorvastatin 40 mg tablet 40 mg PO HS 01/28/21 04/27/21 History cholecalciferol (vitamin D3) 25 25 mcg PO HS 01/28/21 04/27/21 History mcg (1,000 unit) capsule (Vitamin D3) diphenhydramine HCl 25 mg capsule 50 mg PO HS 01/28/21 04/27/21 History (Benadryl) famotidine 20 mg tablet 20 mg PO BID 01/28/21 04/27/21 History insulin aspart U-100 100 unit/mL 0 unit CONTINUOUS SUBCUTANEOUS 01/28/21 04/27/21 History subcutaneous solution INFUSION CONTINOUS lisinopril 5 mg tablet 5 mg PO HS 01/28/21 04/27/21 History selenium 200 mcg tablet 200 mcg PO HS 04/25/21 04/27/21 History furosemide 20 mg tablet (Lasix) 10 - 20 mg PO DAILY PRN 04/27/21 04/27/21 History Past Med/Surg History Medical History (Updated 04/27/21 @ 14:02 by Niurka Miranda PA-C) CKD (chronic kidney disease) stage 3, GFR 30-59 ml/min DM II (diabetes mellitus, type II), controlled HTN (hypertension) Obesity S/p dental crown Surgical History (Updated 04/27/21 @ 14:02 by Niurka Miranda PA-C) H/O dilation and curettage H/O: hysterectomy History of arthroplasty of left knee Family History (Updated 04/27/21 @ 14:01 by Niurka Miranda PA-C) Other Diabetes Hypertension Stroke Social History Smoking Status: Never smoker Preferred Language: Croatian Feels Safe at Home: Yes Review of Systems Review of Systems: At least ten systems reviewed and negative except as noted in the HPI. Physical Exam Physical Exam: Lying in bed with minimal discomfort secondary to mild shortness of breath and epigastric discomfort Constitutional: Mildly obese Eyes: PERRL, conjunctivae normal, anicteric sclerae ENMT: external ear and nose normal, oropharynx normal Neck: trachea midline, no thyromegaly Respiratory: Decreased breath sounds both sides with occasional crackles at the bases Cardiovascular: Rate/Rhythm: regular rate and regular rhythm Heart Sounds: normal S1 and normal S2; no murmur Extremities: no edema Gastrointestinal (Abdomen): normal bowel sounds, soft, nontender, no hepatosplenomegaly Musculoskeletal: No acute arthritis in any joint Neurologic: PERRL, EOMI, accommodation nl, no face palsy, no dysarthria Psychiatric: A+Ox3, euthymic affect Lymphatic: no cervical or axillary lymphadenopathy Results & Data Results & Data ([facility]) Vital Signs (Past 12 Hours) Vital Signs Temp Pulse Resp BP Pulse Ox 04/27/21 11:30 92 H 14 104/43 L 100 04/27/21 11:00 92 H 23 118/74 100 04/27/21 10:56 91 04/27/21 09:27 37.3 C 98 H 18 125/61 91 Laboratory Results Short CBC 04/27/21 Range/Units 10:40 WBC 5.20 (4.8-10.8) K/uL Hgb 12.8 (12.0-16.0) g/dL Hct 38.8 (37-47) % Plt Count 155 (130-400) K/uL BMP 04/27/21 10:40 Sodium 135 L Potassium 4.4 Chloride 109 H Carbon Dioxide 20 L BUN 29 H Creatinine 3.34 H Glucose 137 H Calcium 8.6 Cardiac Enzymes 04/27/21 Range/Units 10:40 Troponin I < 0.015 (0-0.045) ng/ml Liver Function 04/27/21 Range/Units 10:40 Total Bilirubin 0.4 (0.2-1) mg/dl Direct Bilirubin 0.1 (0-0.2) mg/dl AST 22 (15-37) U/L ALT 20 (12-78) U/L Alkaline Phosphatase 96 (45-117) U/L Albumin 3.2 L (3.4-5.0) gm/dl Urine 04/27/21 Range/Units 13:15 Urine Color Yellow Urine Appearance Cloudy A (Clear) Urine pH 5.5 (4.5-7.5) Ur Specific Virgie 1.017 (1.000-1.030) Urine Protein 3+ H (Negative) Urine Glucose (UA) Negative (Negative) Diagnostic Findings Chest X-Ray 04/27/21 09:57 SINGLE VIEW CHEST CLINICAL HISTORY: Atypical chest pain. Cough and fever. FINDINGS: An AP, portable, upright chest radiograph is compared to study dated 04/25/2021. The cardiomediastinal silhouette is unremarkable. Interstitial airspace opacities are seen throughout both lungs. No large pleural effusion or pneumothorax is seen. The bony thorax is grossly intact. IMPRESSION: Interstitial airspace opacities are seen throughout both lungs. Correlate clinically for evidence of an infectious/inflammatory pneumonitis. Radiographic follow-up to resolution is recommended. ACT 112: Negative or not required by law. Electronically signed by: Isai Johnson M.D. 04/27/2021 11:26 AM ECG Additional Comments: Normal sinus rhythm, poor baseline without any significant ST-T wave changes Code Status & VTE Plan VTE Prophylaxis Plan VTE Prophylaxis will be ordered: Yes Supervising Physician Co-Signing Physician Notes Attending addendum The patient was seen and examined in emergency room. She has been complaining of epigastric discomfort with nausea and vomiting and generalized weakness since last She denies any significant shortness of breath at rest Denies any chest pain and no palpitation On examination Hemodynamically stable Her examination is as above Her admission labs and imaging studies reviewed Has bilateral inflammatory/infective change in the x-ray secondary to COVID-19 virus infection Has acute on chronic kidney failure She will be given dexamethasone but not the remdesivir for COVID-19 infection Agree with assessment and plan as outlined above by ALEXANDRA Felix Dr.
[2021-04-27] MEDS: SODIUM CHLORIDE 0.9% 1000ML 1,000 ML IV SCH ×2 (13:04→20:29)
[2021-04-27 13:26] LABS: Appearance Urine Cloudy (Clear); Bacteria Urine Automated 2+ (Negative); Bilirubin Urine Negative (Negative); Blood Urine Trace (Negative); Color Urine Yellow; Epithelial Cell Urine Auto >30 /lpf (0-5); Glucose Urine UA Negative (Negative); Ketones Urine Trace (Negative); Leukocyte Esterase Urine Negative (Negative); Nitrite Urine Negative (Negative); Protein Urine 3+ (Negative); RBC Urine Automated 0-4 /hpf (0-4); Specific Gravity Urine 1.017 (1.000-1.030); Urobilinogen Urine Negative (Negative); pH Urine 5.5 (4.5-7.5)
[2021-04-27] MEDS ORDERED: PHARMACY GLYCEMIC MGMT CONSULT PRN (14:52)
[2021-04-27] MEDS ORDERED: DEXTROSE 50% 50 ML SYRINGE IV PRN (15:30)
[2021-04-27] MEDS ORDERED: INSULIN ASPART 100 UNITS/ML VIAL SC PRN (15:30)
[2021-04-27] MEDS ORDERED: GLUCAGON FOR INJ 1 MG VIAL SQ PRN (15:30)
[2021-04-27] MEDS ORDERED: GLUCOSE 40% GEL 15 GM TUBE PO PRN (15:30)
[2021-04-27] MEDS ORDERED: GLUCOSE 10 TABS/TUBE PO PRN (15:30)
[2021-04-27] MEDS ORDERED: CARBOHYDRATES FOR HYPOGLYCEMIA PO PRN (15:30)
--- NOTE | 2021-04-27 15:53 | Electrocardiogram Report ---
Test Reason : Blood Pressure : / mmHG Vent. Rate : 095 BPM Atrial Rate : 095 BPM P-R Int : 148 ms QRS Dur : 076 ms QT Int : 308 ms P-R-T Axes : 020 035 008 degrees QTc Int : 387 ms Poor data quality, interpretation may be adversely affected Normal sinus rhythm Low voltage QRS Borderline ECG When compared with ECG of 28-JAN-2021 21:55, No significant change was found Confirmed by Vince Orozco ([id number]) on 04/27/2021 3:52:56 PM Referred By: REFERRED SELF Confirmed By:Vince Orozco
[2021-04-27] MEDS: HEPARIN SOD 5,000 UNIT/0.5 ML VIAL SQ SCH ×2 (17:58→20:23)
[2021-04-27] MEDS: ATORVASTATIN 40 MG TAB PO SCH (20:23)
[2021-04-27] MEDS: CHOLECALCIFEROL 1,000 UNITS 25 MCG TAB PO SCH (20:23)
--- NOTE | 2021-04-27 20:34 | Pharmacy Report ---
Pharmacy Glycemic Short Note 2 - Date of Service April 27, 2021 - Glycemic Short BSG Results (Last 24 hours): 04/27/21 04/27/21 04/27/21 10:40 16:57 20:06 Glucose 137 H POC Glucose 284 H 403 H* 04/27/21 20:08 Glucose POC Glucose 413 H* OUTPATIENT ANTIDIABETIC REGIMEN: * Medtronic Insulin pump * Basal rate: 1.8 units/hr * Patient does not know other settings ASSESSMENT: * 50yo T2DM female with unknown degree of outpatient control - no recent A1c; will order per protocol * Pt is maintained on insulin pump - son brought in extra insulin for her to refill pump and change site tonight * Pt with SEVERE hyperglycemia secondary to illness and dexamethasone * Pt does NOT want SQ insulin on top of insulin pump at this time. She will continue to check her BSG Q2hrs and bolus from pump. 17 units just given at 2014. PLAN FOR INPATIENT GLYCEMIC CONTROL: Pt is to manage BSGs with insulin pump per outpatient settings. * RN will have patient read and sign agreement [id number] Insulin Pump Therapy Patient Agreement. * RN will provide and explain form [id number] Flowsheet for Patient * Patient will document their insulin dose given on [id number] which is kept at the bedside, available to caregivers upon request, and which becomes part of the permanent medical record. If at any time the patients condition evidences that he/she is not able to manage the insulin pump (i.e. frequent hypo/hyperglycemia) Pharmacy will assume glycemic control by discontinuing the pump & managing with SQ basal bolus insulin regimen for the interim.
[2021-04-28] MEDS: HEPARIN SOD 5,000 UNIT/0.5 ML VIAL SQ SCH ×3 (05:09→19:42)
[2021-04-28] MEDS: SODIUM CHLORIDE 0.9% 1000ML 1,000 ML IV SCH ×3 (05:09→19:37)
[2021-04-28 06:38] LABS: Hematocrit (blood only) 35.9 % (37-47); Hemoglobin 11.8 g/dL (12.0-16.0); Mean Corpuscular Hemoglobin 30.1 pg (25-34); Mean Corpuscular Hgb Conc 32.9 g/dL (32-36); Mean Corpuscular Volume 91.6 fL (80-100); Mean Platelet Volume 10.3 fL (7.4-10.4); Platelet Count 147 K/uL (130-400); RDW Coefficient of Variation 12.6 % (11.5-14.5); RDW Standard Deviation 42.4 fL (36.4-46.3); Red Blood Count 3.92 M/uL (4.2-5.4); White Blood Count 4.83 K/uL (4.8-10.8)
[2021-04-28 07:11] LABS: Albumin Level 2.6 gm/dl (3.4-5.0); BUN Creatinine Ratio 12.5 (10-20); Calcium 7.9 mg/dl (8.5-10.1); Creatinine Clr Calc Pharmacy 28.8 ml/min; Est GFR (African American) 21.9 ml/min; Est GFR (Non-African American) 18.9 ml/min; Potassium 4.7 mmol/L (3.5-5.1)
[2021-04-28 07:14] LABS: Albumin Globulin Ratio 0.7 (0.9-2); Bilirubin,Total 0.2 mg/dl (0.2-1); Globulin 3.9 gm/dl (2.5-4.0); Total Protein 6.5 gm/dl (6.4-8.2)
[2021-04-28 07:31] LABS: Estimated Average Glucose 171 mg/dl; Hemoglobin A1C 7.6 % (4.5-5.6)
[2021-04-28] MEDS: FAMOTIDINE 20 MG TAB PO SCH (08:54)
[2021-04-28] MEDS: dexAMETHasone 6 MG in SYRINGE 0 ML IV SCH (08:56)
[2021-04-28] MEDS ORDERED: COUGH DROP (SUGAR FREE) LOZ 24 LOZ/1 BOX BUCCAL ONE (15:28)
[2021-04-28] MEDS ORDERED: INSULIN GLARGINE SOLOSTAR 100 UNITS/ML 3 ML PEN SC ONE (16:30)
[2021-04-28] MEDS: INSULIN ASPART 100 UNITS/ML 3 ML PEN SC SCH ×2 (17:11→20:19)
--- NOTE | 2021-04-28 17:11 | Hospitalist Progress Note ---
Date of Service April 28, 2021 Assessment & Plan (1) COVID-19: Plan: This is a 50yo F with a PMH of DM II, CKD III, HLD and other medical problems listed below who presents with viral symptoms x 6 days and was found to have covid-19 positive PCR test. COVID-19 infection with pneumonia Saturating 98% on 2L NC - will assess O2 saturation on room air Denies cough or SOB CXR with interstitial airspace opacities are seen throughout both lungs. Correlate clinically for evidence of an infectious/inflammatory pneumonitis No leukocytosis. Procal pending - no indication for antibiotics at this time No evidence of anaplasma on peripheral smear, lyme serology negative Continue dexamethasone, gentle IV fluids, supportive care Covid isolation precautions Complaining of cough and with deep cough medications Saturating well with room air (2) Acute kidney injury superimposed on chronic kidney disease: Plan: Cr elevated at 3.34 in setting of dehydration (baseline Cr ~mid-2s) Gentle hydration, avoid nephrotoxic agents Monitor daily BMP -BUN and creatinine has been improving Advised to drink more fluid and will continue intravenous fluid (3) DM II (diabetes mellitus, type II), controlled: Plan: A1c 7.4 in March 2021 Uses insulin pump - almost out of medication but son to bring from home (will send to pharmacy for labeling) Glycemic consult placed Blood sugar has been uncontrolled due to dexamethasone Patient wants to use the insulin pump May need to be transferred to regular insulin from tomorrow (4) Hyperlipidemia: Plan: Continue statin DVT Ppx: SQ heparin Code status: FULL PCP: Ade Angel Dispo: Admitted to PCU Admission and Anticipated Discharge Date Admission Date: April 27, 2021 Subjective 04/28/2021 The patient was seen and examined in telemetry unit and in Covid room She has been feeling a lot better today and does not require any oxygen to maintain saturation She complains today of cough Her blood sugar has been running high and has been difficult to control with insulin pump as per the glycemic pharmacist Review of Systems Review of Systems: All systems reviewed and are unremarkable except as noted below Respiratory: + cough; no dyspnea Physical Exam Physical Exam: Lying in bed comfortably Eyes: PERRL, conjunctivae normal, anicteric sclerae ENMT: external ear and nose normal, oropharynx normal Neck: trachea midline, no thyromegaly Respiratory: no respiratory distress Auscultation: + diminished lung sounds and + crackles (Occasional crackles at the bases) Cardiovascular: Rate/Rhythm: regular rate and regular rhythm Heart Sounds: normal S1 and normal S2; no murmur Extremities: no edema Gastrointestinal (Abdomen): normal bowel sounds, soft, nontender, no hepatosplenomegaly Neurologic: PERRL, EOMI, accommodation nl, no face palsy, no dysarthria Psychiatric: A+Ox3, euthymic affect Lymphatic: no cervical or axillary lymphadenopathy Results & Data Results & Data ([facility] [place]) Vital Signs (Past 12 Hours) Vital Signs Temp Pulse Pulse Resp BP Pulse Ox 04/28/21 15:58 69 04/28/21 12:01 36.4 C L 77 18 117/67 94 04/28/21 08:00 36.9 C 84 18 130/66 95 04/28/21 07:19 59 L Laboratory Results Short CBC 04/28/21 Range/Units 05:49 WBC 4.83 (4.8-10.8) K/uL Hgb 11.8 L (12.0-16.0) g/dL Hct 35.9 L (37-47) % Plt Count 147 (130-400) K/uL BMP 04/28/21 05:49 Sodium 136 Potassium 4.7 Chloride 111 H Carbon Dioxide 18 L BUN 35 H Creatinine 2.78 H D Glucose 247 H Calcium 7.9 L Liver Function 04/28/21 Range/Units 05:49 Total Bilirubin 0.2 (0.2-1) mg/dl AST 20 (15-37) U/L ALT 18 (12-78) U/L Alkaline Phosphatase 77 (45-117) U/L Albumin 2.6 L (3.4-5.0) gm/dl Medications Administered Current Inpatient Medications Acetaminophen (Acetaminophen 325 Mg Tab) 650 mg PO Q4H PRN PRN Reason: Pain or Fever Stop: 05/27/21 15:31 Atorvastatin Calcium (Atorvastatin 40 Mg Tab) 40 mg PO HS [facility] Stop: 05/27/21 20:59 Last Admin: 04/27/21 20:23 Dose: 40 mg Documented by: Benzonatate (Benzonatate 100 Mg Capsule) 100 mg PO TID [facility] Stop: 05/28/21 20:59 Dextrose (Dextrose 50% 50 Ml Syringe) 25 - 50 ml IV UD PRN; Protocol PRN Reason: Hypoglycemia Protocol Stop: 05/27/21 15:29 Famotidine (Famotidine 20 Mg Tab) 20 mg PO DAILY [facility] Stop: 05/27/21 20:59 Last Admin: 04/28/21 08:54 Dose: 20 mg Documented by: Glucagon (Glucagon For Inj 1 Mg Vial) 1 mg SQ UD PRN; Protocol PRN Reason: Hypoglycemia Protocol Stop: 05/27/21 15:29 Glucose (Glucose 40% Gel 15 Gm Tube) 15 - 30 gm PO UD PRN; Protocol PRN Reason: Hypoglycemia Protocol Stop: 05/27/21 15:29 Glucose (Glucose 10 Tabs/Tube) 4 - 8 tabs PO UD PRN; Protocol PRN Reason: Hypoglycemia Protocol Stop: 05/27/21 15:29 Guaifenesin (Guaifenesin 600 Mg Tabcr) 1,200 mg PO Q12 [facility] Stop: 05/28/21 20:59 Heparin Sodium (Porcine) (Heparin Sod 5,000 Unit/0.5 Ml Vial) 7,500 units SQ Q8 [facility] Stop: 05/27/21 15:44 Last Admin: 04/28/21 15:31 Dose: 7,500 units Documented by: Sodium Chloride (Nss 1000ml) 1,000 mls @ 125 mls/hr IV .Q8H [facility] Stop: 05/27/21 12:44 Last Admin: 04/28/21 12:09 Dose: 125 mls/hr Documented by: Dexamethasone 6 mg/ Syringe 1.5 mls @ 1 mls/min IV DAILY [facility] Stop: 05/08/21 08:59 Last Admin: 04/28/21 08:56 Dose: 1 mls/min Documented by: Insulin Aspart (Novolog Insulin Pump) 1 ea N/A ACHS PENDING SALE TO [facility]; Protocol Stop: 04/28/21 18:30 Insulin Aspart (Insulin Aspart 100 Units/Ml 3 Ml Pen) 0 units SC ACHS [facility] Stop: 05/28/21 16:29 Insulin Aspart (Insulin Aspart 100 Units/Ml 3 Ml Pen) 0 units SC 0000,0400 PENDING [facility] TO [facility] Stop: 04/29/21 04:01 Miscellaneous (Carbohydrates For Hypoglycemia ) 15 - 30 gm PO UD PRN PRN Reason: Hypoglycemia Treatment Stop: 05/27/21 15:29 Miscellaneous (Stop Order: Novolog Pump) 1 ea N/A 1830 ONE Stop: 04/28/21 18:31 Miscellaneous Information (Pharmacy Glycemic Mgmt Consult) 1 ea N/A UD PRN PRN Reason: Consult Stop: 05/27/21 14:51 Ondansetron HCl (Ondansetron Inj 2 Mg/Ml 2 Ml Vial) 4 mg IV Q6H PRN PRN Reason: Nausea Stop: 05/27/21 15:31 Vitamin D (Cholecalciferol 1,000 Units 25 Mcg Tab) 1,000 units PO HS [facility] Stop: 05/27/21 20:59 Last Admin: 04/27/21 20:23 Dose: 1,000 units Documented by:
[2021-04-28] MEDS: NovoLOG INSULIN PUMP SCH ×4 (17:35→17:42)
[2021-04-28] MEDS ORDERED: [UNRECOGNIZED DRUG - REMARK] ONE (18:30)
[2021-04-28] MEDS: guaiFENesin 600 MG TABCR PO SCH (19:39)
[2021-04-28] MEDS: CHOLECALCIFEROL 1,000 UNITS 25 MCG TAB PO SCH (19:40)
[2021-04-28] MEDS: ATORVASTATIN 40 MG TAB PO SCH (19:40)
[2021-04-28] MEDS: BENZONATATE 100 MG CAPSULE PO SCH (19:40)
[2021-04-29] MEDS: INSULIN ASPART 100 UNITS/ML 3 ML PEN SC SCH ×6 (00:41→20:25)
[2021-04-29] MEDS: ACETAMINOPHEN 325 MG TAB PO PRN ×3 (00:42→17:26)
[2021-04-29] MEDS: HEPARIN SOD 5,000 UNIT/0.5 ML VIAL SQ SCH ×3 (04:17→20:39)
[2021-04-29] MEDS: SODIUM CHLORIDE 0.9% 1000ML 1,000 ML IV SCH ×3 (04:18→20:25)
[2021-04-29 07:02] LABS: Hematocrit (blood only) 33.3 % (37-47); Hemoglobin 11.1 g/dL (12.0-16.0); Immature Granulocytes # (auto) 0.03 K/uL (0.00-0.02); Immature Granulocytes % (auto) 0.3 %; Lymphocytes # (auto) 1.27 K/uL (1.2-3.4); Lymphocytes % (auto) 13.7 %; Mean Corpuscular Hemoglobin 30.2 pg (25-34); Mean Corpuscular Hgb Conc 33.3 g/dL (32-36); Mean Corpuscular Volume 90.7 fL (80-100); Mean Platelet Volume 10.2 fL (7.4-10.4); Monocytes # (auto) 0.33 K/uL (0.11-0.59); Monocytes % (auto) 3.6 %; Neutrophils # (auto) 7.61 K/uL (1.4-6.5); Neutrophils % (auto) 82.4 %; Platelet Count 161 K/uL (130-400); RDW Coefficient of Variation 12.7 % (11.5-14.5); RDW Standard Deviation 42.1 fL (36.4-46.3); Red Blood Count 3.67 M/uL (4.2-5.4); White Blood Count 9.24 K/uL (4.8-10.8)
[2021-04-29] MEDS: ONDANSETRON INJ 2 MG/ML 2 ML VIAL IV PRN ×2 (07:21→14:13)
[2021-04-29] MEDS: BENZONATATE 100 MG CAPSULE PO SCH ×3 (07:25→20:38)
[2021-04-29 07:36] LABS: Albumin Level 2.5 gm/dl (3.4-5.0); BUN Creatinine Ratio 14.5 (10-20); Calcium 7.9 mg/dl (8.5-10.1); Creatinine Clr Calc Pharmacy 35.3 ml/min; Est GFR (African American) 28.2 ml/min; Est GFR (Non-African American) 24.3 ml/min; Magnesium 1.8 mg/dl (1.8-2.4); Potassium 4.5 mmol/L (3.5-5.1)
[2021-04-29 07:38] LABS: Albumin Globulin Ratio 0.7 (0.9-2); Bilirubin,Total 0.3 mg/dl (0.2-1); Globulin 3.6 gm/dl (2.5-4.0); Total Protein 6.1 gm/dl (6.4-8.2)
[2021-04-29] MEDS: guaiFENesin 600 MG TABCR PO SCH ×2 (08:20→20:38)
[2021-04-29] MEDS: FAMOTIDINE 20 MG TAB PO SCH (08:20)
[2021-04-29] MEDS ORDERED: INSULIN HUMAN NPH SC SCH ×2 (09:00→11:30)
[2021-04-29] MEDS: dexAMETHasone 6 MG in SYRINGE 0 ML IV SCH (09:20)
--- NOTE | 2021-04-29 10:39 | Pharmacy Report ---
Pharmacy Glycemic Short Note 2 - Date of Service April 29, 2021 - Glycemic Short BSG Results (Last 24 hours): 04/28/21 04/28/21 04/28/21 11:54 13:39 15:38 Glucose POC Glucose 217 H 242 H 207 H 04/28/21 04/28/21 04/28/21 16:43 20:18 23:20 Glucose POC Glucose 182 H 121 H 55 L* 04/28/21 04/29/21 04/29/21 23:22 00:39 04:21 Glucose POC Glucose 56 L* 84 72 04/29/21 04/29/21 06:06 07:20 Glucose 91 POC Glucose 105 H OUTPATIENT ANTIDIABETIC REGIMEN: * Medtronic Insulin pump * Basal rate: 1.8 units/hr * Patient does not know other settings ASSESSMENT: 04/29 * Patient was transitioned off her insulin pump yesterday evening. She received 40 units Lantus prior to pump discontinuation. * Overnight the patient's BSGs did drop into the 50's - likely due to excess basal. * Patient's BSG did recover this AM into the low 100's. Plan to use once daily Lantus in the AM as well as NPH w/ AM dexamethasone to combat steroid induced hyperglycemia. Will hold the Lantus today however given events of last night. Of note, patient's diet poor this AM. * Novolog CF and CR are reasonable starting points for this patient considering outpt prandial needs and current steroid therapy. 04/27 * 50yo T2DM female with unknown degree of outpatient control - no recent A1c; will order per protocol * Pt is maintained on insulin pump - son brought in extra insulin for her to refill pump and change site tonight * Pt with SEVERE hyperglycemia secondary to illness and dexamethasone * Pt does NOT want SQ insulin on top of insulin pump at this time. She will continue to check her BSG Q2hrs and bolus from pump. 17 units just given at 2014. PLAN FOR INPATIENT GLYCEMIC CONTROL: Basal * No Lantus today - reassess needs tomorrow * NPH 20 units SQ w/ AM dexamethasone 6mg IV today Bolus * Novolog SQ ACHS and at 0200 initially * Goal range: 110 - 140 mg/dL * Correction factor: 10mg/dL/uni * Carb ratio: 1 unit per 2 grams CHO consumed w/ meals. DISCHARGE RECOMMENDATIONS: * to be determined
[2021-04-29] MEDS ORDERED: LOPERAMIDE HCL 2 MG CAP PO PRN (16:00)
--- NOTE | 2021-04-29 17:37 | Hospitalist Progress Note ---
Date of Service April 29, 2021 Assessment & Plan (1) COVID-19: Plan: This is a 50yo F with a PMH of DM II, CKD III, HLD and other medical problems listed below who presents with viral symptoms x 6 days and was found to have covid-19 positive PCR test. COVID-19 infection with pneumonia Saturating 98% on 2L NC - will assess O2 saturation on room air Denies cough or SOB CXR with interstitial airspace opacities are seen throughout both lungs. Correlate clinically for evidence of an infectious/inflammatory pneumonitis No leukocytosis. Procal pending - no indication for antibiotics at this time No evidence of anaplasma on peripheral smear, lyme serology negative Continue dexamethasone, gentle IV fluids, supportive care Covid isolation precautions Complaining of cough and with deep cough medications Condition is worse today and requiring up to 3 L of oxygen to maintain saturation Still has significant cough and postnasal drip Has been tolerating prone position for some time (2) Acute kidney injury superimposed on chronic kidney disease: Plan: Cr elevated at 3.34 in setting of dehydration (baseline Cr ~mid-2s) Gentle hydration, avoid nephrotoxic agents Monitor daily BMP -BUN and creatinine has been improving Advised to drink more fluid and will continue intravenous fluid Kidney function has been improving (3) DM II (diabetes mellitus, type II), controlled: Plan: A1c 7.4 in March 2021 Uses insulin pump - almost out of medication but son to bring from home (will send to pharmacy for labeling) Glycemic consult placed Blood sugar has been uncontrolled due to dexamethasone Patient wants to use the insulin pump Blood sugar seems to be controlled (4) Hyperlipidemia: Plan: Continue statin DVT Ppx: SQ heparin Code status: FULL PCP: Ade Angel Dispo: Admitted to PCU Admission and Anticipated Discharge Date Admission Date: April 27, 2021 Subjective 04/28/2021 The patient was seen and examined in telemetry unit and in Covid room She has been feeling a lot better today and does not require any oxygen to maintain saturation She complains today of cough Her blood sugar has been running high and has been difficult to control with insulin pump as per the glycemic pharmacist 04/29/2021 The patient was seen and examined in telemetry unit in Covid room She has been complaining of ongoing cough and nasal congestion Also has diarrhea Her breathing is a little worse today and requiring 2 to 3 L of oxygen to maintain saturation Review of Systems Review of Systems: All systems reviewed and are unremarkable except as noted below Respiratory: + cough; no dyspnea Physical Exam Physical Exam: Lying in bed comfortably Eyes: PERRL, conjunctivae normal, anicteric sclerae ENMT: external ear and nose normal, oropharynx normal Neck: trachea midline, no thyromegaly Respiratory: no respiratory distress Auscultation: + diminished lung sounds and + crackles (Occasional crackles at the bases) Cardiovascular: Rate/Rhythm: regular rate and regular rhythm Heart Sounds: normal S1 and normal S2; no murmur Extremities: no edema Gastrointestinal (Abdomen): normal bowel sounds, soft, nontender, no hepatosplenomegaly Neurologic: PERRL, EOMI, accommodation nl, no face palsy, no dysarthria Psychiatric: A+Ox3, euthymic affect Lymphatic: no cervical or axillary lymphadenopathy Results & Data Results & Data ([facility]) Vital Signs (Past 12 Hours) Vital Signs Temp Pulse Pulse Resp BP Pulse Ox 04/29/21 15:46 37.5 C 80 20 121/61 90 04/29/21 11:51 37.1 C 79 20 108/54 L 92 04/29/21 08:29 87 04/29/21 07:31 37.6 C 84 20 131/62 91 Laboratory Results Short CBC 04/29/21 Range/Units 06:06 WBC 9.24 (4.8-10.8) K/uL Hgb 11.1 L (12.0-16.0) g/dL Hct 33.3 L (37-47) % Plt Count 161 (130-400) K/uL BMP 04/29/21 06:06 Sodium 139 Potassium 4.5 Chloride 115 H Carbon Dioxide 21 BUN 33 H Creatinine 2.26 H D Glucose 91 Calcium 7.9 L Liver Function 04/29/21 Range/Units 06:06 Total Bilirubin 0.3 (0.2-1) mg/dl AST 29 (15-37) U/L ALT 17 (12-78) U/L Alkaline Phosphatase 64 (45-117) U/L Albumin 2.5 L (3.4-5.0) gm/dl Medications Administered Current Inpatient Medications Acetaminophen (Acetaminophen 325 Mg Tab) 650 mg PO Q4H PRN PRN Reason: Pain or Fever Stop: 05/27/21 15:31 Last Admin: 04/29/21 17:26 Dose: 650 mg Documented by: Atorvastatin Calcium (Atorvastatin 40 Mg Tab) 40 mg PO HS [facility] Stop: 05/27/21 20:59 Last Admin: 04/28/21 19:40 Dose: 40 mg Documented by: Benzonatate (Benzonatate 100 Mg Capsule) 100 mg PO TID [facility] Stop: 05/28/21 20:59 Last Admin: 04/29/21 14:13 Dose: 100 mg Documented by: Dextrose (Dextrose 50% 50 Ml Syringe) 25 - 50 ml IV UD PRN; Protocol PRN Reason: Hypoglycemia Protocol Stop: 05/27/21 15:29 Famotidine (Famotidine 20 Mg Tab) 20 mg PO DAILY [facility] Stop: 05/27/21 20:59 Last Admin: 04/29/21 08:20 Dose: 20 mg Documented by: Glucagon (Glucagon For Inj 1 Mg Vial) 1 mg SQ UD PRN; Protocol PRN Reason: Hypoglycemia Protocol Stop: 05/27/21 15:29 Glucose (Glucose 40% Gel 15 Gm Tube) 15 - 30 gm PO UD PRN; Protocol PRN Reason: Hypoglycemia Protocol Stop: 05/27/21 15:29 Glucose (Glucose 10 Tabs/Tube) 4 - 8 tabs PO UD PRN; Protocol PRN Reason: Hypoglycemia Protocol Stop: 05/27/21 15:29 Guaifenesin (Guaifenesin 600 Mg Tabcr) 1,200 mg PO Q12 [facility] Stop: 05/28/21 20:59 Last Admin: 04/29/21 08:20 Dose: 1,200 mg Documented by: Heparin Sodium (Porcine) (Heparin Sod 5,000 Unit/0.5 Ml Vial) 7,500 units SQ Q8 [facility] Stop: 05/27/21 15:44 Last Admin: 04/29/21 14:13 Dose: 7,500 units Documented by: Sodium Chloride (Nss 1000ml) 1,000 mls @ 125 mls/hr IV .Q8H [facility] Stop: 05/27/21 12:44 Last Admin: 04/29/21 11:50 Dose: 125 mls/hr Documented by: Dexamethasone 6 mg/ Syringe 1.5 mls @ 1 mls/min IV DAILY [facility] Stop: 05/08/21 08:59 Last Admin: 04/29/21 09:20 Dose: 1 mls/min Documented by: Insulin Aspart (Insulin Aspart 100 Units/Ml 3 Ml Pen) 0 units SC ACHS [facility] Stop: 05/28/21 16:29 Last Admin: 04/29/21 12:06 Dose: Not Given Documented by: Insulin Aspart (Insulin Aspart 100 Units/Ml 3 Ml Pen) 0 units SC TODAY@0200 ONE Stop: 04/30/21 02:01 Insulin Human NPH (Insulin Human Nph) [facility] [place] Stop: 05/30/21 08:59 Loperamide HCl (Loperamide Hcl 2 Mg Cap) 2 mg PO Q4H PRN PRN Reason: Diarrhea Stop: 05/29/21 15:59 Last Admin: 04/29/21 17:26 Dose: 2 mg Documented by: Miscellaneous (Carbohydrates For Hypoglycemia ) 15 - 30 gm PO UD PRN PRN Reason: Hypoglycemia Treatment Stop: 05/27/21 15:29 Miscellaneous Information (Pharmacy Glycemic Mgmt Consult) 1 ea N/A UD PRN PRN Reason: Consult Stop: 05/27/21 14:51 Ondansetron HCl (Ondansetron Inj 2 Mg/Ml 2 Ml Vial) 4 mg IV Q6H PRN PRN Reason: Nausea Stop: 05/27/21 15:31 Last Admin: 04/29/21 14:13 Dose: 4 mg Documented by: Vitamin D (Cholecalciferol 1,000 Units 25 Mcg Tab) 1,000 units PO [facility] Stop: 05/27/21 20:59 Last Admin: 04/28/21 19:40 Dose: 1,000 units Documented by:
[2021-04-29] MEDS: HYDROcodone/HOMATROPINE SYRUP 5MG/1.5MG 5ML UDP PO PRN (18:35)
[2021-04-29] MEDS: ATORVASTATIN 40 MG TAB PO SCH (20:38)
[2021-04-29] MEDS: CHOLECALCIFEROL 1,000 UNITS 25 MCG TAB PO SCH (20:38)
[2021-04-29] MEDS ORDERED: HEPARIN SOD 5,000 UNIT/0.5 ML VIAL SQ SCH (21:00)
[2021-04-29] MEDS: guaiFENesin SUGAR FREE 200 MG/10 ML UDC PO PRN (23:42)
[2021-04-30] MEDS: HYDROcodone/HOMATROPINE SYRUP 5MG/1.5MG 5ML UDP PO PRN ×2 (01:23→12:33)
[2021-04-30] MEDS ORDERED: INSULIN ASPART 100 UNITS/ML 3 ML PEN SC ONE (02:00)
[2021-04-30] MEDS: SODIUM CHLORIDE 0.9% 1000ML 1,000 ML IV SCH (04:32)
[2021-04-30] MEDS ORDERED: HYDROcodone/HOMATROPINE SYRUP 5MG/1.5MG 5ML UDP PO STA (05:01)
[2021-04-30] MEDS: HEPARIN SOD 5,000 UNIT/0.5 ML VIAL SQ SCH ×3 (05:08→21:25)
[2021-04-30] MEDS: INSULIN ASPART 100 UNITS/ML 3 ML PEN SC SCH ×4 (07:41→21:21)
[2021-04-30] MEDS: INSULIN HUMAN NPH SC SCH (07:41)
[2021-04-30] MEDS ORDERED: FUROSEMIDE 60 MG in SYRINGE 0 ML IV ONE (08:00)
[2021-04-30] MEDS: BENZONATATE 100 MG CAPSULE PO SCH ×3 (08:01→21:23)
[2021-04-30] MEDS: guaiFENesin 600 MG TABCR PO SCH ×2 (08:01→21:25)
[2021-04-30] MEDS: FAMOTIDINE 20 MG TAB PO SCH (08:01)
[2021-04-30] MEDS: guaiFENesin SUGAR FREE 200 MG/10 ML UDC PO PRN ×2 (08:02→21:24)
[2021-04-30] MEDS: dexAMETHasone 6 MG in SYRINGE 0 ML IV SCH (08:04)
[2021-04-30] MEDS ORDERED: INSULIN HUMAN NPH SC SCH (09:00)
--- NOTE | 2021-04-30 09:59 | XRay Report ---
SINGLE VIEW CHEST CLINICAL HISTORY: Pneumonia. FINDINGS: 2 AP, portable, upright chest radiographs are compared to study dated 04/27/2021. The examin ation is degraded by portable technique and apical lordotic positioning. The cardiomediastinal silhou ette is unremarkable. Multifocal airspace consolidation is seen throughout both lungs. This has signi ficantly progressed as compared to 04/27/2021. No large pleural effusion or pneumothorax is seen. The bony thorax is grossly intact. IMPRESSION: Multifocal airspace consolidation has significantly progressed as compared to 04/27/2021. ACT 112: Negative or not required by law. Electronically signed by: Isai Johnson M.D. 04/30/2021 9:58 AM
--- NOTE | 2021-04-30 10:16 | Pharmacy Report ---
Pharmacy Glycemic Short Note 2 - Date of Service April 30, 2021 - Glycemic Short BSG Results (Last 24 hours): 04/29/21 04/29/21 04/29/21 11:46 17:23 20:30 POC Glucose 132 H 204 H 147 H 04/30/21 04/30/21 01:27 07:56 POC Glucose 112 H 160 H OUTPATIENT ANTIDIABETIC REGIMEN: * Medtronic Insulin pump * Basal rate: 1.8 units/hr * Patient does not know other settings ASSESSMENT: 04/30 * 33 units SQ insulin administered over last 24 hrs with very little PO intake (only 13gm CHOs documented as consumed yesterday) * Fasting BSG 160 this AM having received 20 units NPH in the AM yesterday. Will increase the NPH dose today but will hold off on adding once daily Lantus in the AM at this time given poor PO intake and worsening O2 needs. Will reassess need for Lantus daily * Given little PO intake in last 24 hrs it is difficult to assess Novolog CF and CR doses, however BSG did correct with use at dinnertime yesterday. 04/29 * Patient was transitioned off her insulin pump yesterday evening. She received 40 units Lantus prior to pump discontinuation. * Overnight the patient's BSGs did drop into the 50's - likely due to excess basal. * Patient's BSG did recover this AM into the low 100's. Plan to use once daily Lantus in the AM as well as NPH w/ AM dexamethasone to combat steroid induced hyperglycemia. Will hold the Lantus today however given events of last night. Of note, patient's diet poor this AM. * Novolog CF and CR are reasonable starting points for this patient considering outpt prandial needs and current steroid therapy. 04/27 * 50yo T2DM female with unknown degree of outpatient control - no recent A1c; will order per protocol * Pt is maintained on insulin pump - son brought in extra insulin for her to refill pump and change site tonight * Pt with SEVERE hyperglycemia secondary to illness and dexamethasone * Pt does NOT want SQ insulin on top of insulin pump at this time. She will continue to check her BSG Q2hrs and bolus from pump. 17 units just given at 2014. PLAN FOR INPATIENT GLYCEMIC CONTROL: Basal - increase * No Lantus today - reassess needs tomorrow * Increase NPH to 25 units SQ w/ AM dexamethasone 6mg IV Bolus - no change * Novolog SQ ACHS and at 0200 initially * Goal range: 110 - 140 mg/dL * Correction factor: 10mg/dL/uni * Carb ratio: 1 unit per 2 grams CHO consumed w/ meals. DISCHARGE RECOMMENDATIONS: * to be determined
[2021-04-30 10:48] LABS: Hematocrit (blood only) 35.4 % (37-47); Hemoglobin 11.8 g/dL (12.0-16.0); Mean Corpuscular Hemoglobin 30.6 pg (25-34); Mean Corpuscular Hgb Conc 33.3 g/dL (32-36); Mean Corpuscular Volume 91.7 fL (80-100); Mean Platelet Volume 10.5 fL (7.4-10.4); Platelet Count 173 K/uL (130-400); RDW Standard Deviation 43.8 fL (36.4-46.3); Red Blood Count 3.86 M/uL (4.2-5.4); White Blood Count 12.08 K/uL (4.8-10.8)
[2021-04-30 11:06] LABS: BUN Creatinine Ratio 13.4 (10-20); Creatinine Clr Calc Pharmacy 37.9 ml/min; Est GFR (African American) 30.6 ml/min; Est GFR (Non-African American) 26.4 ml/min; Magnesium 1.6 mg/dl (1.8-2.4); Potassium 4.6 mmol/L (3.5-5.1)
[2021-04-30 11:07] LABS: Basophils # (auto) 0.01 K/uL (0-0.2); Basophils % (auto) 0.1 %; Echinocytes 2+; Immature Granulocytes # (auto) 0.03 K/uL (0.00-0.02); Immature Granulocytes % (auto) 0.2 %; Lymphocytes # (auto) 0.54 K/uL (1.2-3.4); Lymphocytes % (auto) 4.5 %; Monocytes # (auto) 0.29 K/uL (0.11-0.59); Monocytes % (auto) 2.4 %; Neutrophils # (auto) 11.21 K/uL (1.4-6.5); Neutrophils % (auto) 92.8 %
[2021-04-30 11:08] LABS: C Reactive Protein 8.68 mg/dl (0-0.29); Phosphorus 2.6 mg/dl (2.5-4.9)
--- NOTE | 2021-04-30 11:49 | Pulmonary Consultation ---
Date of Consultation April 30, 2021 Assessment & Plan (1) Pneumonia due to COVID-19 virus: 50-year-old female with a history of hypertension, hyperlipidemia, diabetes mellitus type 2, morbid obesity and CKD stage III who presented to the hospital due to shortness of breath. She was found to have COVID-19 viral pneumonia. COVID-19 viral pneumonia: She is both out of the window for remdesivir therapy and she has a relative contraindication due to her acute kidney injury. Her CRP is currently elevated at 8.69 mg/dL. We will start her on tocilizumab therapy to help reduce the inflammatory response. Continue steroid therapy with Decadron 6 mg daily. Continue diuretics. She had a significant progression of interstitial markings on her chest x-ray from 04/27 - 04/30. This is likely related to both COVID 19 viral pneumonia and fluid overload. She does appear improved after receiving 60 mg of IV Lasix. I suggested that she continue proning as much as possible. She is also instructed to use her incentive spirometer as frequently as she can. Thank you for the consultation. Pulmonary will continue to follow along with you. Case was discussed with bedside RN, hospitalist and pharmacist. (2) Acute kidney injury superimposed on chronic kidney disease: (3) Hypoxia: History of Present Illness Reason for Consultation: Acute hypoxemic respiratory failure and COVID-19 pneumonia Requesting Physician: Dr. Jane Attending Physician: Wilmer Jane MD History of Present Illness 50-year-old female with a past medical history of morbid obesity, diabetes mellitus type 2, hyperlipidemia, hypertension and CKD stage III who originally presented to the ER on 04/25/2021 due to nausea and vomiting. Symptoms have been ongoing for 2 days prior. She was discharged home. Notably, she attended a adventism over the weekend and it was thought that she was exposed to COVID-19 during that adventism visit. She presented back to the ER on 04/27/2021 with her who also has similar symptoms. She was admitted that same day. She was found to be in acute kidney injury and thus remdesivir was not started. She was hydrated with IV fluids and started on Decadron. She has had substantially increased oxygen requirements with a significantly worsening chest x-ray. Pulmonary was consulted for additional guidance in terms of treatment. Her CRP is elevated to 8.68 mg/dL. Subjectively, patient notes that she feels less short of breath than yesterday. She is sitting up in bed and eating her lunch. She denies any chest pain. She does endorse significant coughing fits. She feels a bit fatigued. No fevers or chills at the moment. She denies any lower extremity edema. She notes that she was not vaccinated for COVID-19 as she was worried that the vaccine was "experimental". She has 2 children ages 22 and 25. Her younger son attends [employer]. Both of her children are vaccinated. She is not aware of any COVID-19 contacts. She denies any smoking history. She has 1 dog at home. She works in the [employer]. Her works for the [employer]. She denies any prior illnesses involving lung disease. Allergies Allergy/AdvReac Type Severity Reaction Status Date / Time No Known Allergies Allergy Verified 04/27/21 13:07 Home Medications Medication Instructions Recorded Confirmed Type ascorbic acid (vitamin C) 1,000 mg 1 g PO HS 01/28/21 04/27/21 History tablet (Vitamin C) atorvastatin 40 mg tablet 40 mg PO HS 01/28/21 04/27/21 History cholecalciferol (vitamin D3) 25 25 mcg PO HS 01/28/21 04/27/21 History mcg (1,000 unit) capsule (Vitamin D3) diphenhydramine HCl 25 mg capsule 50 mg PO HS 01/28/21 04/27/21 History (Benadryl) famotidine 20 mg tablet 20 mg PO BID 01/28/21 04/27/21 History insulin aspart U-100 100 unit/mL 0 unit CONTINUOUS SUBCUTANEOUS 01/28/21 04/27/21 History subcutaneous solution INFUSION CONTINOUS lisinopril 5 mg tablet 5 mg PO HS 01/28/21 04/27/21 History selenium 200 mcg tablet 200 mcg PO HS 04/25/21 04/27/21 History furosemide 20 mg tablet (Lasix) 10 - 20 mg PO DAILY PRN 04/27/21 04/27/21 History Patient History Medical History CKD (chronic kidney disease) stage 3, GFR 30-59 ml/min DM II (diabetes mellitus, type II), controlled HTN (hypertension) Obesity S/p dental crown Surgical History H/O dilation and curettage H/O: hysterectomy History of arthroplasty of left knee Family History Other Diabetes Hypertension Stroke Social History Smoking Status: Never smoker Hx Alcohol Use: No Hx Substance Use: No Preferred Language: Faroese Communication Ability: Effective Beliefs That Will Affect Care: None Current Living Situation: Spouse Other Information That Helps Us Care for You: No Feels Safe at Home: Yes Safety Concerns: Feels Safe At This Time Assistive Devices: Oxygen - Continuous Review of Systems Review of Systems: 07/22 point ROS negative unless noted elsewhere Physical Exam Physical Exam: Constitutional: Patient appears to be of their stated age. Patient is in no apparent distress. Patient is well-developed. Eyes: Pupils are equal round and reactive to light. Conjunctivae are normal. Anicteric sclera. Ears nose, mouth and throat: Mallampati class 2. Normal posterior oropharynx. Uvula is midline. Neck: Trachea is midline. Visual inspection is normal. Respiratory: Diminished bilaterally. Mild tachypnea. Cardiovascular: Regular rate and rhythm. No murmurs. No edema. Gastrointestinal: Normal bowel sounds, soft, nontender and nondistended. No hepatosplenomegaly noted. Musculoskeletal: No cyanosis. Patient is able to move all extremities. Strength is 5 out of 5 in the upper and lower extremities. Skin: No rashes, warm dry and intact. Neurologic: No obvious focal neurological deficits seen. Psychiatric: Alert and oriented x3 with a euthymic affect. Results & Data Results & Data ([facility]) Vital Signs (Past 12 Hours) Vital Signs Temp Pulse Pulse Pulse Resp BP Pulse Ox 04/30/21 11:26 98.8 F 81 24 131/70 93 04/30/21 10:32 75 20 94 04/30/21 10:27 04/30/21 08:33 73 16 91 04/30/21 07:54 72 04/30/21 07:52 04/30/21 07:45 99.5 F 85 26 H 124/58 L 91 04/30/21 04:00 98.6 F 78 24 106/59 L 94 Pulse Ox 04/30/21 11:26 04/30/21 10:32 04/30/21 10:27 93 04/30/21 08:33 04/30/21 07:54 04/30/21 07:52 91 04/30/21 07:45 04/30/21 04:00 Vital signs, labs and imaging personally reviewed PG Care Time/CCT Total # of Minutes Spent Total Time Spent with Patient: Total time spent is greater than 50% in coordination of care (as documented) at patient's floor/unit and/or counseling patient: Coding Level of Care Code 49261 Inpt Consult Level 5 Diagnoses Pneumonia due to COVID-19 virus U07.1; J12.82 Acute kidney injury superimposed on chronic kidney disease N17.9; N18.9 Hypoxia R09.02
[2021-04-30] MEDS ORDERED: TOCILIZUMAB 800 MG in 0.9 % SODIUM CHLORIDE 60 ML IV ONE (12:30)
--- NOTE | 2021-04-30 16:38 | Hospitalist Progress Note ---
Date of Service April 30, 2021 Assessment & Plan (1) COVID-19: Plan: This is a 50yo F with a PMH of DM II, CKD III, HLD and other medical problems listed below who presents with viral symptoms x 6 days and was found to have covid-19 positive PCR test. COVID-19 infection with pneumonia Saturating 98% on 2L NC - will assess O2 saturation on room air Denies cough or SOB CXR with interstitial airspace opacities are seen throughout both lungs. Correlate clinically for evidence of an infectious/inflammatory pneumonitis No leukocytosis. Procal pending - no indication for antibiotics at this time No evidence of anaplasma on peripheral smear, lyme serology negative Continue dexamethasone, gentle IV fluids, supportive care Covid isolation precautions Complaining of cough and with deep cough medications Condition is worse today and requiring up to 3 L of oxygen to maintain saturation Condition got worse overnight and the chest x-ray showed worsening of pneumonia CRP level was 8.69 and prolactin normal Appreciate pulmonology input and recommendation Still requiring 60% of FiO2 to maintain saturation Tocilizumab has been started Monitor PRP and will give more Lasix depending on kidney function tomorrow (2) Acute kidney injury superimposed on chronic kidney disease: Plan: Cr elevated at 3.34 in setting of dehydration (baseline Cr ~mid-2s) Gentle hydration, avoid nephrotoxic agents Monitor daily BMP -BUN and creatinine has been improving Advised to drink more fluid and will continue intravenous fluid Kidney function has been improving IV fluid has been stopped and she received 60 of intravenous Lasix this morning We'll monitor PRP (3) DM II (diabetes mellitus, type II), controlled: Plan: A1c 7.4 in March 2021 Uses insulin pump - almost out of medication but son to bring from home (will send to pharmacy for labeling) Glycemic consult placed Blood sugar has been uncontrolled due to dexamethasone Patient wants to use the insulin pump Blood sugar seems to be controlled (4) Hyperlipidemia: Plan: Continue statin DVT Ppx: SQ heparin Code status: FULL PCP: Ade Angel Dispo: Admitted to PCU Admission and Anticipated Discharge Date Admission Date: April 27, 2021 Subjective 04/28/2021 The patient was seen and examined in telemetry unit and in Covid room She has been feeling a lot better today and does not require any oxygen to maintain saturation She complains today of cough Her blood sugar has been running high and has been difficult to control with insulin pump as per the glycemic pharmacist 04/29/2021 The patient was seen and examined in telemetry unit in Covid room She has been complaining of ongoing cough and nasal congestion Also has diarrhea Her breathing is a little worse today and requiring 2 to 3 L of oxygen to maintain saturation 04/30/2021 The patient was seen and examined in telemetry unit in Covid room Her condition got worse since last night and has been requiring 15 L of oxygen via nasal cannula to maintain saturation X-ray did show worsening of pneumonia bilaterally with increasing CRP level Pulmonology consulted and the patient was started with Tocilizumab Review of Systems Review of Systems: All systems reviewed and are unremarkable except as noted below Respiratory: + cough; no dyspnea Physical Exam Physical Exam: Lying in bed in prone position without any acute distress Eyes: PERRL, conjunctivae normal, anicteric sclerae ENMT: external ear and nose normal, oropharynx normal Neck: trachea midline, no thyromegaly Respiratory: + respiratory distress Auscultation: + diminished lung sounds and + crackles (Occasional crackles at the bases) Cardiovascular: Rate/Rhythm: regular rate and regular rhythm Heart Sounds: normal S1 and normal S2; no murmur Extremities: no edema Gastrointestinal (Abdomen): normal bowel sounds, soft, nontender, no hepatosplenomegaly Neurologic: PERRL, EOMI, accommodation nl, no face palsy, no dysarthria Psychiatric: A+Ox3, euthymic affect Lymphatic: no cervical or axillary lymphadenopathy Results & Data Results & Data ([facility]) Vital Signs (Past 12 Hours) Vital Signs Temp Pulse Pulse Pulse Resp BP Pulse Ox 04/30/21 15:00 62 04/30/21 14:55 37 C 61 20 120/65 96 04/30/21 14:44 58 L 20 94 04/30/21 11:26 37.1 C 81 24 131/70 93 04/30/21 10:32 75 20 94 04/30/21 10:27 04/30/21 08:33 73 16 91 04/30/21 07:54 72 04/30/21 07:52 04/30/21 07:45 37.5 C 85 26 H 124/58 L 91 Pulse Ox 04/30/21 15:00 04/30/21 14:55 04/30/21 14:44 04/30/21 11:26 04/30/21 10:32 04/30/21 10:27 93 04/30/21 08:33 04/30/21 07:54 04/30/21 07:52 91 04/30/21 07:45 Laboratory Results Short CBC 04/30/21 Range/Units 10:33 WBC 12.08 H (4.8-10.8) K/uL Hgb 11.8 L (12.0-16.0) g/dL Hct 35.4 L (37-47) % Plt Count 173 (130-400) K/uL BMP 04/30/21 10:33 Sodium 139 Potassium 4.6 Chloride 116 H Carbon Dioxide 17 L BUN 28 H Creatinine 2.11 H Glucose 186 H Calcium 8.0 L Medications Administered Current Inpatient Medications Acetaminophen (Acetaminophen 325 Mg Tab) 650 mg PO Q4H PRN PRN Reason: Pain or Fever Stop: 05/27/21 15:31 Last Admin: 04/29/21 17:26 Dose: 650 mg Documented by: Atorvastatin Calcium (Atorvastatin 40 Mg Tab) 40 mg PO HS [facility] Stop: 05/27/21 20:59 Last Admin: 04/29/21 20:38 Dose: 40 mg Documented by: Benzonatate (Benzonatate 100 Mg Capsule) 100 mg PO TID [facility] Stop: 05/28/21 20:59 Last Admin: 04/30/21 14:53 Dose: 100 mg Documented by: Dextrose (Dextrose 50% 50 Ml Syringe) 25 - 50 ml IV UD PRN; Protocol PRN Reason: Hypoglycemia Protocol Stop: 05/27/21 15:29 Famotidine (Famotidine 20 Mg Tab) 20 mg PO DAILY [facility] Stop: 05/27/21 20:59 Last Admin: 04/30/21 08:01 Dose: 20 mg Documented by: Glucagon (Glucagon For Inj 1 Mg Vial) 1 mg SQ UD PRN; Protocol PRN Reason: Hypoglycemia Protocol Stop: 05/27/21 15:29 Glucose (Glucose 40% Gel 15 Gm Tube) 15 - 30 gm PO UD PRN; Protocol PRN Reason: Hypoglycemia Protocol Stop: 05/27/21 15:29 Glucose (Glucose 10 Tabs/Tube) 4 - 8 tabs PO UD PRN; Protocol PRN Reason: Hypoglycemia Protocol Stop: 05/27/21 15:29 Guaifenesin (Guaifenesin 600 Mg Tabcr) 1,200 mg PO Q12 [facility] Stop: 05/28/21 20:59 Last Admin: 04/30/21 08:01 Dose: 1,200 mg Documented by: Guaifenesin (Guaifenesin Sugar Free 200 Mg/10 Ml Udc) 200 mg PO Q6H PRN PRN Reason: Cough Stop: 05/29/21 22:53 Last Admin: 04/30/21 08:02 Dose: 200 mg Documented by: Heparin Sodium (Porcine) (Heparin Sod 5,000 Unit/0.5 Ml Vial) 7,500 units SQ Q8 [facility] Stop: 05/27/21 15:44 Last Admin: 04/30/21 14:53 Dose: 7,500 units Documented by: Hydrocodone Bit/Homatropine Methylb (Hydrocodone/Homatropine Syrup 5mg/1.5mg 5ml Udp) 5 ml PO Q6H PRN PRN Reason: Cough Stop: 05/13/21 17:37 Last Admin: 04/30/21 12:33 Dose: 5 ml Documented by: Dexamethasone 6 mg/ Syringe 1.5 mls @ 1 mls/min IV DAILY [facility] Stop: 05/08/21 08:59 Last Admin: 04/30/21 08:04 Dose: 1 mls/min Documented by: Insulin Aspart (Insulin Aspart 100 Units/Ml 3 Ml Pen) 0 units SC ACHS [facility] Stop: 05/28/21 16:29 Last Admin: 04/30/21 14:10 Dose: 25 units Documented by: Insulin Aspart (Insulin Aspart 100 Units/Ml 3 Ml Pen) 0 units SC TODAY@0200 [facility] Stop: 05/01/21 02:01 Insulin Human NPH (Insulin Human Nph) 25 units SC QAM [facility] Stop: 05/30/21 08:59 Last Admin: 04/30/21 07:41 Dose: 25 units Documented by: Loperamide HCl (Loperamide Hcl 2 Mg Cap) 2 mg PO Q4H PRN PRN Reason: Diarrhea Stop: 05/29/21 15:59 Last Admin: 04/29/21 17:26 Dose: 2 mg Documented by: Miscellaneous (Carbohydrates For Hypoglycemia ) 15 - 30 gm PO UD PRN PRN Reason: Hypoglycemia Treatment Stop: 05/27/21 15:29 Miscellaneous Information (Pharmacy Glycemic Mgmt Consult) 1 ea N/A UD PRN PRN Reason: Consult Stop: 05/27/21 14:51 Ondansetron HCl (Ondansetron Inj 2 Mg/Ml 2 Ml Vial) 4 mg IV Q6H PRN PRN Reason: Nausea Stop: 05/27/21 15:31 Last Admin: 04/29/21 14:13 Dose: 4 mg Documented by: Vitamin D (Cholecalciferol 1,000 Units 25 Mcg Tab) 1,000 units PO HS [facility] Stop: 05/27/21 20:59 Last Admin: 04/29/21 20:38 Dose: 1,000 units Documented by:
[2021-04-30] MEDS: ATORVASTATIN 40 MG TAB PO SCH (21:24)
[2021-04-30] MEDS: CHOLECALCIFEROL 1,000 UNITS 25 MCG TAB PO SCH (21:24)
[2021-05-01] MEDS ORDERED: INSULIN ASPART 100 UNITS/ML 3 ML PEN SC SCH (02:00)
[2021-05-01] MEDS: HYDROcodone/HOMATROPINE SYRUP 5MG/1.5MG 5ML UDP PO PRN (05:01)
[2021-05-01] MEDS: HEPARIN SOD 5,000 UNIT/0.5 ML VIAL SQ SCH ×3 (05:01→20:28)
[2021-05-01 06:16] LABS: Hematocrit (blood only) 33.2 % (37-47); Mean Corpuscular Hgb Conc 33.1 g/dL (32-36); Mean Corpuscular Volume 90.5 fL (80-100); Mean Platelet Volume 10.3 fL (7.4-10.4); Platelet Count 177 K/uL (130-400); RDW Standard Deviation 42.7 fL (36.4-46.3); Red Blood Count 3.67 M/uL (4.2-5.4); White Blood Count 9.62 K/uL (4.8-10.8)
[2021-05-01 06:43] LABS: BUN Creatinine Ratio 14.5 (10-20); Calcium 8.5 mg/dl (8.5-10.1); Creatinine Clr Calc Pharmacy 39.4 ml/min; Est GFR (African American) 32.3 ml/min; Est GFR (Non-African American) 27.9 ml/min; Magnesium 1.7 mg/dl (1.8-2.4); Potassium 4.3 mmol/L (3.5-5.1)
[2021-05-01 06:47] LABS: Albumin Globulin Ratio 0.5 (0.9-2); Bilirubin,Total 0.4 mg/dl (0.2-1); C Reactive Protein 8.25 mg/dl (0-0.29); Globulin 4.2 gm/dl (2.5-4.0); Total Protein 6.2 gm/dl (6.4-8.2)
[2021-05-01 06:48] LABS: Immature Granulocytes # (auto) 0.06 K/uL (0.00-0.02); Immature Granulocytes % (auto) 0.6 %; Lymphocytes # (auto) 0.66 K/uL (1.2-3.4); Lymphocytes % (auto) 6.9 %; Monocytes # (auto) 0.46 K/uL (0.11-0.59); Monocytes % (auto) 4.8 %; Neutrophils # (auto) 8.44 K/uL (1.4-6.5); Neutrophils % (auto) 87.7 %
[2021-05-01] MEDS ORDERED: FUROSEMIDE 60 MG in SYRINGE 0 ML IV ONE (07:30)
[2021-05-01] MEDS: BENZONATATE 100 MG CAPSULE PO SCH ×3 (07:50→20:27)
[2021-05-01] MEDS: INSULIN HUMAN NPH SC SCH (07:50)
[2021-05-01] MEDS: guaiFENesin 600 MG TABCR PO SCH ×2 (07:50→20:25)
[2021-05-01] MEDS: FAMOTIDINE 20 MG TAB PO SCH (07:50)
[2021-05-01] MEDS: dexAMETHasone 6 MG in SYRINGE 0 ML IV SCH (07:50)
[2021-05-01] MEDS: guaiFENesin SUGAR FREE 200 MG/10 ML UDC PO PRN ×2 (07:50→20:27)
[2021-05-01] MEDS: INSULIN ASPART 100 UNITS/ML 3 ML PEN SC SCH ×4 (07:50→21:33)
[2021-05-01] MEDS: ACETAMINOPHEN 325 MG TAB PO PRN ×2 (10:54→20:26)
--- NOTE | 2021-05-01 13:00 | Pulmonology Progress Note ---
Date of Service May 01, 2021 Assessment & Plan (1) Pneumonia due to COVID-19 virus: Plan: 50-year-old female with a history of hypertension, hyperlipidemia, diabetes mellitus type 2, morbid obesity and CKD stage III who presented to the hospital due to shortness of breath. She was found to have COVID-19 viral pneumonia. COVID-19 viral pneumonia: She is both out of the window for remdesivir therapy and she has a relative contraindication due to her acute kidney injury. CRP levels continue to be elevated. She received tocilizumab on 04/30/2021. Continue steroid therapy with Decadron 6 mg daily. Continue diuretics. She appears to respond well to diuretic therapy. She had a significant progression of interstitial markings on her chest x-ray from 04/27 - 04/30. This is likely related to both COVID 19 viral pneumonia and fluid overload. Continue to wean oxygen to maintain saturations of 92 to 94%. Oxygenation is improved from yesterday. Continue the use of self proning and incentive spirometry as much as possible. Thank you for the consultation. Pulmonary will continue to follow along with you from the periphery. Please call with questions. (2) Acute kidney injury superimposed on chronic kidney disease: (3) Hypoxia: Admission and Anticipated Discharge Date Admission Date: April 27, 2021 Subjective Patient was seen through the window today. I did not physically see the patient in person so that I could limit exposure to COVID-19 and limit the use of PPE. I did discuss with the bedside nurse. Patient is requiring 35 L and 55% high flow nasal cannula which is improved from yesterday. She is sitting up in bed and appears to be mentating better per the bedside RN. No significant overnight events. She has been self proning. She received tocilizumab yesterday. Review of Systems Review of Systems: Patient not interviewed by myself today as noted previously. Please see the hospitalist documentation for review of systems. Physical Exam Physical Exam: From the window the patient appears comfortable and she is sitting upright. Otherwise, please review the hospitalist physical exam for today's exam. Results & Data Results & Data ([facility]) Vital Signs (Past 12 Hours) Vital Signs Temp Pulse Pulse Resp BP Pulse Ox Pulse Ox 05/01/21 10:56 98.1 F 69 20 141/65 H 95 05/01/21 10:00 91 05/01/21 08:00 98.1 F 74 24 135/91 92 05/01/21 07:48 58 L 05/01/21 07:35 57 L 16 89 L 05/01/21 05:47 63 20 86 L 05/01/21 03:51 98.5 F 65 20 136/75 93 05/01/21 03:02 57 L 22 90 Vital signs, labs and imaging were personally reviewed. PG Care Time/CCT Total # of Minutes Spent Total Time Spent with Patient: Total time spent is greater than 50% in coordination of care (as documented) at patient's floor/unit and/or counseling patient: Coding Level of Care Code 24076 Subseq Hosp Care Lvl 2 Diagnoses Pneumonia due to COVID-19 virus U07.1; J12.82 Acute kidney injury superimposed on chronic kidney disease N17.9; N18.9 Hypoxia R09.02 Time Spent (min) 20
--- NOTE | 2021-05-01 15:39 | Pharmacy Report ---
Pharmacy Glycemic Short Note 2 - Date of Service May 01, 2021 - Glycemic Short BSG Results (Last 24 hours): 04/30/21 04/30/21 04/30/21 17:37 17:40 17:50 Glucose POC Glucose 56 L* 55 L* 56 L* 04/30/21 04/30/21 05/01/21 18:16 20:03 04:03 Glucose POC Glucose 141 H 148 H 209 H 05/01/21 05/01/21 05/01/21 06:00 07:48 11:30 Glucose 195 H POC Glucose 171 H 241 H OUTPATIENT ANTIDIABETIC REGIMEN: * Medtronic Insulin pump * Basal rate: 1.8 units/hr * Patient does not know other settings ASSESSMENT: 05/01: * Joo received 51 units of insulin yesterday (25 units of basal and 26 units of bolus) and had adequate glycemic control with the exception of an episode of hypoglycemia around dinnertime (BSG 56 mg/dL). * Fasting BSG continues to trend upward. I will add on 15 units of Lantus. Conservative dose selected since patient is also on NPH to cover for steroid induced hyperglycemia. * Novolog was loosened significantly last evening (carb ratio of 2-> 6). I will trial carb ratio of 4. 7/ * 33 units SQ insulin administered over last 24 hrs with very little PO intake (only 13gm CHOs documented as consumed yesterday) * Fasting BSG 160 this AM having received 20 units NPH in the AM yesterday. Will increase the NPH dose today but will hold off on adding once daily Lantus in the AM at this time given poor PO intake and worsening O2 needs. Will reassess need for Lantus daily * Given little PO intake in last 24 hrs it is difficult to assess Novolog CF and CR doses, however BSG did correct with use at dinnertime yesterday. 04/29 * Patient was transitioned off her insulin pump yesterday evening. She received 40 units Lantus prior to pump discontinuation. * Overnight the patient's BSGs did drop into the 50's - likely due to excess basal. * Patient's BSG did recover this AM into the low 100's. Plan to use once daily Lantus in the AM as well as NPH w/ AM dexamethasone to combat steroid induced hyperglycemia. Will hold the Lantus today however given events of last night. Of note, patient's diet poor this AM. * Novolog CF and CR are reasonable starting points for this patient considering outpt prandial needs and current steroid therapy. 04/27 * 50yo T2DM female with unknown degree of outpatient control - no recent A1c; will order per protocol * Pt is maintained on insulin pump - son brought in extra insulin for her to refill pump and change site tonight * Pt with SEVERE hyperglycemia secondary to illness and dexamethasone * Pt does NOT want SQ insulin on top of insulin pump at this time. She will continue to check her BSG Q2hrs and bolus from pump. 17 units just given at 2014. PLAN FOR INPATIENT GLYCEMIC CONTROL: Basal - increase * Lantus 15 units SQ x 1 - reassess on 05/02 * Continue NPH 25 units SQ w/ AM dexamethasone 6mg IV Bolus * Novolog SQ ACHS * Goal range: 110 - 140 mg/dL * Correction factor: 10mg/dL/uni * Carb ratio: 1 unit per 4 grams CHO consumed w/ meals. DISCHARGE RECOMMENDATIONS: * to be determined
--- NOTE | 2021-05-01 17:09 | Hospitalist Progress Note ---
Date of Service May 01, 2021 Assessment & Plan (1) COVID-19: Plan: This is a 50yo F with a PMH of DM II, CKD III, HLD and other medical problems listed below who presents with viral symptoms x 6 days and was found to have covid-19 positive PCR test. COVID-19 infection with pneumonia Saturating 98% on 2L NC - will assess O2 saturation on room air Denies cough or SOB CXR with interstitial airspace opacities are seen throughout both lungs. Correlate clinically for evidence of an infectious/inflammatory pneumonitis No leukocytosis. Procal pending - no indication for antibiotics at this time No evidence of anaplasma on peripheral smear, lyme serology negative Continue dexamethasone, gentle IV fluids, supportive care Covid isolation precautions Complaining of cough and with deep cough medications Condition is worse today and requiring up to 3 L of oxygen to maintain saturation Condition got worse overnight and the chest x-ray showed worsening of pneumonia CRP level was 8.69 and prolactin normal Appreciate pulmonology input and recommendation Still requiring 60% of FiO2 to maintain saturation Tocilizumab has been started Monitor PRP and will give more Lasix depending on kidney function tomorrow Clinically better today and received another dose of Lasix this morning 05/01/2021 We will monitor PRP and administer more Lasix if needed We will check CRP as well (2) Acute kidney injury superimposed on chronic kidney disease: Plan: Cr elevated at 3.34 in setting of dehydration (baseline Cr ~mid-2s) Gentle hydration, avoid nephrotoxic agents Monitor daily BMP -BUN and creatinine has been improving Advised to drink more fluid and will continue intravenous fluid Kidney function has been improving IV fluid has been stopped and she received 60 of intravenous Lasix this morning We'll monitor PRP-remains stable (3) DM II (diabetes mellitus, type II), controlled: Plan: A1c 7.4 in March 2021 Uses insulin pump - almost out of medication but son to bring from home (will send to pharmacy for labeling) Glycemic consult placed Blood sugar has been uncontrolled due to dexamethasone Patient wants to use the insulin pump Blood sugar seems to be controlled (4) Hyperlipidemia: Plan: Continue statin DVT Ppx: SQ heparin Code status: FULL PCP: Ade Angel Dispo: Admitted to PCU Discussed with the father Admission and Anticipated Discharge Date Admission Date: April 27, 2021 Subjective 04/28/2021 The patient was seen and examined in telemetry unit and in Covid room She has been feeling a lot better today and does not require any oxygen to maintain saturation She complains today of cough Her blood sugar has been running high and has been difficult to control with insulin pump as per the glycemic pharmacist 04/29/2021 The patient was seen and examined in telemetry unit in Covid room She has been complaining of ongoing cough and nasal congestion Also has diarrhea Her breathing is a little worse today and requiring 2 to 3 L of oxygen to maintain saturation 04/30/2021 The patient was seen and examined in telemetry unit in Covid room Her condition got worse since last night and has been requiring 15 L of oxygen via nasal cannula to maintain saturation X-ray did show worsening of pneumonia bilaterally with increasing CRP level Pulmonology consulted and the patient was started with Tocilizumab 05/01/2021 The patient was seen and examined in telemetry unit and Covid room She has been feeling a little better today and requiring about 5 L of oxygen to maintain saturation She has been maintaining prone position pretty well Has been communicating with me normally Review of Systems Review of Systems: All systems reviewed and are unremarkable except as noted below Respiratory: + cough; no dyspnea Physical Exam Physical Exam: Lying in bed in prone position without any acute distress Eyes: PERRL, conjunctivae normal, anicteric sclerae ENMT: external ear and nose normal, oropharynx normal Neck: trachea midline, no thyromegaly Respiratory: + respiratory distress Auscultation: + diminished lung sounds and + crackles (Occasional crackles at the bases) Cardiovascular: Rate/Rhythm: regular rate and regular rhythm Heart Sounds: normal S1 and normal S2; no murmur Extremities: no edema Gastrointestinal (Abdomen): normal bowel sounds, soft, nontender, no hepatosplenomegaly Musculoskeletal: No acute arthritis Neurologic: PERRL, EOMI, accommodation nl, no face palsy, no dysarthria Psychiatric: A+Ox3, euthymic affect Lymphatic: no cervical or axillary lymphadenopathy Results & Data Results & Data ([facility]) Vital Signs (Past 12 Hours) Vital Signs Temp Pulse Pulse Resp BP Pulse Ox Pulse Ox 05/01/21 15:02 36.8 C 66 18 145/91 H 95 05/01/21 14:48 64 05/01/21 11:31 67 18 89 L 05/01/21 10:56 36.7 C 69 20 141/65 H 95 07/24/21 10:00 91 05/01/21 08:00 36.7 C 74 24 135/91 92 05/01/21 07:48 58 L 05/01/21 07:35 57 L 16 89 L 05/01/21 05:47 63 20 86 L Laboratory Results Short CBC 05/01/21 Range/Units 06:00 WBC 9.62 (4.8-10.8) K/uL Hgb 11.0 L (12.0-16.0) g/dL Hct 33.2 L (37-47) % Plt Count 177 (130-400) K/uL BMP 05/01/21 06:00 Sodium 138 Potassium 4.3 Chloride 112 H Carbon Dioxide 20 L BUN 29 H Creatinine 2.02 H Glucose 195 H Calcium 8.5 Liver Function 05/01/21 Range/Units 06:00 Total Bilirubin 0.4 (0.2-1) mg/dl AST 27 (15-37) U/L ALT 17 (12-78) U/L Alkaline Phosphatase 63 (45-117) U/L Albumin 2.0 L (3.4-5.0) gm/dl Medications Administered Current Inpatient Medications Acetaminophen (Acetaminophen 325 Mg Tab) 650 mg PO Q4H PRN PRN Reason: Pain or Fever Stop: 05/27/21 15:31 Last Admin: 05/01/21 10:54 Dose: 650 mg Documented by: Atorvastatin Calcium (Atorvastatin 40 Mg Tab) 40 mg PO HS [facility] Stop: 05/27/21 20:59 Last Admin: 04/30/21 21:24 Dose: 40 mg Documented by: Benzonatate (Benzonatate 100 Mg Capsule) 100 mg PO TID [facility] Stop: 05/28/21 20:59 Last Admin: 05/01/21 13:51 Dose: 100 mg Documented by: Dextrose (Dextrose 50% 50 Ml Syringe) 25 - 50 ml IV UD PRN; Protocol PRN Reason: Hypoglycemia Protocol Stop: 05/27/21 15:29 Last Admin: 04/30/21 17:55 Dose: 25 ml Documented by: Famotidine (Famotidine 20 Mg Tab) 20 mg PO DAILY [facility] Stop: 05/27/21 20:59 Last Admin: 05/01/21 07:50 Dose: 20 mg Documented by: Glucagon (Glucagon For Inj 1 Mg Vial) 1 mg SQ UD PRN; Protocol PRN Reason: Hypoglycemia Protocol Stop: 05/27/21 15:29 Glucose (Glucose 40% Gel 15 Gm Tube) 15 - 30 gm PO UD PRN; Protocol PRN Reason: Hypoglycemia Protocol Stop: 05/27/21 15:29 Glucose (Glucose 10 Tabs/Tube) 4 - 8 tabs PO UD PRN; Protocol PRN Reason: Hypoglycemia Protocol Stop: 05/27/21 15:29 Guaifenesin (Guaifenesin 600 Mg Tabcr) 1,200 mg PO Q12 [facility] Stop: 05/28/21 20:59 Last Admin: 05/01/21 07:50 Dose: 1,200 mg Documented by: Guaifenesin (Guaifenesin Sugar Free 200 Mg/10 Ml Udc) 200 mg PO Q6H PRN PRN Reason: Cough Stop: 05/29/21 22:53 Last Admin: 05/01/21 07:50 Dose: 200 mg Documented by: Heparin Sodium (Porcine) (Heparin Sod 5,000 Unit/0.5 Ml Vial) 7,500 units SQ Q8 [facility] Stop: 05/27/21 15:44 Last Admin: 05/01/21 13:53 Dose: 7,500 units Documented by: Hydrocodone Bit/Homatropine Methylb (Hydrocodone/Homatropine Syrup 5mg/1.5mg 5ml Udp) 5 ml PO Q6H PRN PRN Reason: Cough Stop: 05/13/21 17:37 Last Admin: 05/01/21 05:01 Dose: 5 ml Documented by: Dexamethasone 6 mg/ Syringe 1.5 mls @ 1 mls/min IV DAILY [facility] Stop: 05/08/21 08:59 Last Admin: 05/01/21 07:50 Dose: 1 mls/min Documented by: Insulin Aspart (Insulin Aspart 100 Units/Ml 3 Ml Pen) 0 units SC ACHS [facility] Stop: 05/28/21 16:29 Last Admin: 05/01/21 11:52 Dose: 20 units Documented by: Insulin Glargine (Insulin Glargine Solostar 100 Units/Ml 3 Ml Pen) 15 units SC QDD [facility] Stop: 05/31/21 16:29 Insulin Human NPH (Insulin Human Nph) 25 units SC QAM [facility] Stop: 05/30/21 08:59 Last Admin: 05/01/21 07:50 Dose: 25 units Documented by: Loperamide HCl (Loperamide Hcl 2 Mg Cap) 2 mg PO Q4H PRN PRN Reason: Diarrhea Stop: 05/29/21 15:59 Last Admin: 04/29/21 17:26 Dose: 2 mg Documented by: Miscellaneous (Carbohydrates For Hypoglycemia ) 15 - 30 gm PO UD PRN PRN Reason: Hypoglycemia Treatment Stop: 05/27/21 15:29 Miscellaneous Information (Pharmacy Glycemic Mgmt Consult) 1 ea N/A UD PRN PRN Reason: Consult Stop: 05/27/21 14:51 Ondansetron HCl (Ondansetron Inj 2 Mg/Ml 2 Ml Vial) 4 mg IV Q6H PRN PRN Reason: Nausea Stop: 05/27/21 15:31 Last Admin: 04/29/21 14:13 Dose: 4 mg Documented by: Vitamin D (Cholecalciferol 1,000 Units 25 Mcg Tab) 1,000 units PO HS [facility] Stop: 05/27/21 20:59 Last Admin: 04/30/21 21:24 Dose: 1,000 units Documented by:
[2021-05-01] MEDS: INSULIN GLARGINE SOLOSTAR 100 UNITS/ML 3 ML PEN SC SCH (18:08)
[2021-05-01] MEDS: CHOLECALCIFEROL 1,000 UNITS 25 MCG TAB PO SCH (20:27)
[2021-05-01] MEDS: ATORVASTATIN 40 MG TAB PO SCH (20:27)
[2021-05-02] MEDS: HEPARIN SOD 5,000 UNIT/0.5 ML VIAL SQ SCH ×3 (05:11→20:54)
[2021-05-02] MEDS: ACETAMINOPHEN 325 MG TAB PO PRN ×5 (05:12→20:45)
[2021-05-02 05:45] LABS: Basophils # (auto) 0.01 K/uL (0-0.2); Basophils % (auto) 0.1 %; Hematocrit (blood only) 35.8 % (37-47); Hemoglobin 12.1 g/dL (12.0-16.0); Immature Granulocytes # (auto) 0.09 K/uL (0.00-0.02); Immature Granulocytes % (auto) 0.9 %; Lymphocytes # (auto) 0.67 K/uL (1.2-3.4); Lymphocytes % (auto) 6.7 %; Mean Corpuscular Hemoglobin 30.3 pg (25-34); Mean Corpuscular Hgb Conc 33.8 g/dL (32-36); Mean Corpuscular Volume 89.7 fL (80-100); Mean Platelet Volume 10.7 fL (7.4-10.4); Neutrophils # (auto) 8.64 K/uL (1.4-6.5); Neutrophils % (auto) 86.3 %; Platelet Count 241 K/uL (130-400); RDW Coefficient of Variation 12.7 % (11.5-14.5); RDW Standard Deviation 41.7 fL (36.4-46.3); Red Blood Count 3.99 M/uL (4.2-5.4); White Blood Count 10.01 K/uL (4.8-10.8)
[2021-05-02 06:11] LABS: Albumin Level 2.4 gm/dl (3.4-5.0); BUN Creatinine Ratio 19.2 (10-20); Calcium 8.8 mg/dl (8.5-10.1); Creatinine Clr Calc Pharmacy 39.7 ml/min; Est GFR (African American) 32.5 ml/min; Magnesium 1.9 mg/dl (1.8-2.4); Potassium 4.4 mmol/L (3.5-5.1)
[2021-05-02 06:14] LABS: Albumin Globulin Ratio 0.5 (0.9-2); Bilirubin,Total 0.5 mg/dl (0.2-1); C Reactive Protein 3.9 mg/dl (0-0.29); Globulin 4.5 gm/dl (2.5-4.0); Phosphorus 3.1 mg/dl (2.5-4.9); Total Protein 6.9 gm/dl (6.4-8.2)
[2021-05-02] MEDS: dexAMETHasone 6 MG in SYRINGE 0 ML IV SCH (08:27)
[2021-05-02] MEDS: guaiFENesin SUGAR FREE 200 MG/10 ML UDC PO PRN ×2 (08:30→20:47)
[2021-05-02] MEDS: FAMOTIDINE 20 MG TAB PO SCH (08:30)
[2021-05-02] MEDS: BENZONATATE 100 MG CAPSULE PO SCH ×3 (08:31→20:46)
[2021-05-02] MEDS: guaiFENesin 600 MG TABCR PO SCH ×2 (08:31→20:46)
[2021-05-02] MEDS: INSULIN ASPART 100 UNITS/ML 3 ML PEN SC SCH ×4 (09:23→20:45)
[2021-05-02] MEDS: INSULIN HUMAN NPH SC SCH (09:24)
[2021-05-02] MEDS ORDERED: FUROSEMIDE 60 MG in SYRINGE 0 ML IV ONE (09:30)
[2021-05-02] MEDS: HYDROcodone/HOMATROPINE SYRUP 5MG/1.5MG 5ML UDP PO PRN (14:21)
--- NOTE | 2021-05-02 14:51 | Hospitalist Progress Note ---
Date of Service May 02, 2021 Assessment & Plan (1) COVID-19: Plan: This is a 50yo F with a PMH of DM II, CKD III, HLD and other medical problems listed below who presents with viral symptoms x 6 days and was found to have covid-19 positive PCR test. COVID-19 infection with pneumonia Saturating 98% on 2L NC - will assess O2 saturation on room air Denies cough or SOB CXR with interstitial airspace opacities are seen throughout both lungs. Correlate clinically for evidence of an infectious/inflammatory pneumonitis No leukocytosis. Procal pending - no indication for antibiotics at this time No evidence of anaplasma on peripheral smear, lyme serology negative Continue dexamethasone, gentle IV fluids, supportive care Covid isolation precautions Complaining of cough and with deep cough medications Condition is worse today and requiring up to 3 L of oxygen to maintain saturation Condition got worse overnight and the chest x-ray showed worsening of pneumonia CRP level was 8.69 and prolactin normal Appreciate pulmonology input and recommendation Still requiring 60% of FiO2 to maintain saturation Tocilizumab has been started Monitor PRP and will give more Lasix depending on kidney function tomorrow Clinically much better today and requiring about 5 L of oxygen to maintain saturation Her CRP has been down and kidney function remains stable (2) Acute kidney injury superimposed on chronic kidney disease: Plan: Cr elevated at 3.34 in setting of dehydration (baseline Cr ~mid-2s) Gentle hydration, avoid nephrotoxic agents Monitor daily BMP -BUN and creatinine has been improving Advised to drink more fluid and will continue intravenous fluid Kidney function has been improving IV fluid has been stopped and she received 60 of intravenous Lasix this morning We'll monitor PRP-remains stable (3) DM II (diabetes mellitus, type II), controlled: Plan: A1c 7.4 in March 2021 Uses insulin pump - almost out of medication but son to bring from home (will send to pharmacy for labeling) Glycemic consult placed Blood sugar has been uncontrolled due to dexamethasone Patient wants to use the insulin pump Blood sugar minimally elevated (4) Hyperlipidemia: Plan: Continue statin DVT Ppx: SQ heparin Code status: FULL PCP: Ade Angel Dispo: Admitted to PCU Discussed with the father Admission and Anticipated Discharge Date Admission Date: April 27, 2021 Subjective 04/28/2021 The patient was seen and examined in telemetry unit and in Covid room She has been feeling a lot better today and does not require any oxygen to maintain saturation She complains today of cough Her blood sugar has been running high and has been difficult to control with insulin pump as per the glycemic pharmacist 04/29/2021 The patient was seen and examined in telemetry unit in Covid room She has been complaining of ongoing cough and nasal congestion Also has diarrhea Her breathing is a little worse today and requiring 2 to 3 L of oxygen to maintain saturation 04/30/2021 The patient was seen and examined in telemetry unit in Covid room Her condition got worse since last night and has been requiring 15 L of oxygen via nasal cannula to maintain saturation X-ray did show worsening of pneumonia bilaterally with increasing CRP level Pulmonology consulted and the patient was started with Tocilizumab 05/01/2021 The patient was seen and examined in telemetry unit and Covid room She has been feeling a little better today and requiring about 5 L of oxygen to maintain saturation She has been maintaining prone position pretty well Has been communicating with me normally 05/02/2021 The patient was seen and examined in telemetry unit in Covid room She has been feeling much better today and has been sitting at the edge of the bed without any acute shortness of breath Still requiring about 5 L of oxygen to maintain saturation Still has profound cough Review of Systems Review of Systems: All systems reviewed and are unremarkable except as noted below Respiratory: + cough; no dyspnea Physical Exam Physical Exam: Lying in bed in prone position without any acute distress Eyes: PERRL, conjunctivae normal, anicteric sclerae ENMT: external ear and nose normal, oropharynx normal Neck: trachea midline, no thyromegaly Respiratory: + respiratory distress Auscultation: + diminished lung sounds and + crackles (Occasional crackles at the bases) Cardiovascular: Rate/Rhythm: regular rate and regular rhythm Heart Sounds: normal S1 and normal S2; no murmur Extremities: no edema Gastrointestinal (Abdomen): normal bowel sounds, soft, nontender, no hepatosplenomegaly Musculoskeletal: No acute arthritis in any joint Neurologic: PERRL, EOMI, accommodation nl, no face palsy, no dysarthria Psychiatric: A+Ox3, euthymic affect Lymphatic: no cervical or axillary lymphadenopathy Results & Data Results & Data ([facility]) Vital Signs (Past 12 Hours) Vital Signs Temp Pulse Pulse Resp BP Pulse Ox Pulse Ox 05/02/21 11:27 80 20 145/75 H 95 05/02/21 10:00 96 05/02/21 08:00 36.8 C 80 22 159/101 H 89 L 05/02/21 07:57 57 L 05/02/21 04:00 36.7 C 63 20 154/80 H 93 Laboratory Results Short CBC 05/02/21 Range/Units 05:17 WBC 10.01 (4.8-10.8) K/uL Hgb 12.1 (12.0-16.0) g/dL Hct 35.8 L (37-47) % Plt Count 241 (130-400) K/uL BMP 05/02/21 05:17 Sodium 137 Potassium 4.4 Chloride 109 H Carbon Dioxide 22 BUN 39 H Creatinine 2.01 H Glucose 193 H Calcium 8.8 Liver Function 05/02/21 Range/Units 05:17 Total Bilirubin 0.5 (0.2-1) mg/dl AST 25 (15-37) U/L ALT 18 (12-78) U/L Alkaline Phosphatase 68 (45-117) U/L Albumin 2.4 L (3.4-5.0) gm/dl Medications Administered Current Inpatient Medications Acetaminophen (Acetaminophen 325 Mg Tab) 650 mg PO Q4H PRN PRN Reason: Pain or Fever Stop: 05/27/21 15:31 Last Admin: 05/02/21 14:21 Dose: 650 mg Documented by: Atorvastatin Calcium (Atorvastatin 40 Mg Tab) 40 mg PO HS [facility] Stop: 05/27/21 20:59 Last Admin: 05/01/21 20:27 Dose: 40 mg Documented by: Benzonatate (Benzonatate 100 Mg Capsule) 100 mg PO TID [facility] Stop: 05/28/21 20:59 Last Admin: 05/02/21 14:26 Dose: 100 mg Documented by: Dextrose (Dextrose 50% 50 Ml Syringe) 25 - 50 ml IV UD PRN; Protocol PRN Reason: Hypoglycemia Protocol Stop: 05/27/21 15:29 Last Admin: 04/30/21 17:55 Dose: 25 ml Documented by: Famotidine (Famotidine 20 Mg Tab) 20 mg PO DAILY [facility] Stop: 05/27/21 20:59 Last Admin: 05/02/21 08:30 Dose: 20 mg Documented by: Glucagon (Glucagon For Inj 1 Mg Vial) 1 mg SQ UD PRN; Protocol PRN Reason: Hypoglycemia Protocol Stop: 05/27/21 15:29 Glucose (Glucose 40% Gel 15 Gm Tube) 15 - 30 gm PO UD PRN; Protocol PRN Reason: Hypoglycemia Protocol Stop: 05/27/21 15:29 Glucose (Glucose 10 Tabs/Tube) 4 - 8 tabs PO UD PRN; Protocol PRN Reason: Hypoglycemia Protocol Stop: 05/27/21 15:29 Guaifenesin (Guaifenesin 600 Mg Tabcr) 1,200 mg PO Q12 [facility] Stop: 05/28/21 20:59 Last Admin: 05/02/21 08:31 Dose: 1,200 mg Documented by: Guaifenesin (Guaifenesin Sugar Free 200 Mg/10 Ml Udc) 200 mg PO Q6H PRN PRN Reason: Cough Stop: 05/29/21 22:53 Last Admin: 05/02/21 08:30 Dose: 200 mg Documented by: Heparin Sodium (Porcine) (Heparin Sod 5,000 Unit/0.5 Ml Vial) 7,500 units SQ Q8 [facility] Stop: 05/27/21 15:44 Last Admin: 05/02/21 14:26 Dose: 7,500 units Documented by: Hydrocodone Bit/Homatropine Methylb (Hydrocodone/Homatropine Syrup 5mg/1.5mg 5ml Udp) 5 ml PO Q6H PRN PRN Reason: Cough Stop: 05/13/21 17:37 Last Admin: 05/02/21 14:21 Dose: 5 ml Documented by: Dexamethasone 6 mg/ Syringe 1.5 mls @ 1 mls/min IV DAILY [facility] Stop: 05/08/21 08:59 Last Admin: 05/02/21 08:27 Dose: 1 mls/min Documented by: Insulin Aspart (Insulin Aspart 100 Units/Ml 3 Ml Pen) 0 units SC ACHS [facility] Stop: 05/28/21 16:29 Last Admin: 05/02/21 12:01 Dose: 26 units Documented by: Insulin Glargine (Insulin Glargine Solostar 100 Units/Ml 3 Ml Pen) 15 units SC QDD [facility] Stop: 05/31/21 16:29 Last Admin: 05/01/21 18:08 Dose: 15 units Documented by: Insulin Human NPH (Insulin Human Nph) 25 units SC QAM [facility] Stop: 05/30/21 08:59 Last Admin: 05/02/21 09:24 Dose: 25 units Documented by: Loperamide HCl (Loperamide Hcl 2 Mg Cap) 2 mg PO Q4H PRN PRN Reason: Diarrhea Stop: 05/29/21 15:59 Last Admin: 04/29/21 17:26 Dose: 2 mg Documented by: Miscellaneous (Carbohydrates For Hypoglycemia ) 15 - 30 gm PO UD PRN PRN Reason: Hypoglycemia Treatment Stop: 05/27/21 15:29 Miscellaneous Information (Pharmacy Glycemic Mgmt Consult) 1 ea N/A UD PRN PRN Reason: Consult Stop: 05/27/21 14:51 Ondansetron HCl (Ondansetron Inj 2 Mg/Ml 2 Ml Vial) 4 mg IV Q6H PRN PRN Reason: Nausea Stop: 05/27/21 15:31 Last Admin: 04/29/21 14:13 Dose: 4 mg Documented by: Vitamin D (Cholecalciferol 1,000 Units 25 Mcg Tab) 1,[address] [facility] Stop: 05/27/21 20:59 Last Admin: 05/01/21 20:27 Dose: 1,000 units Documented by:
[2021-05-02] MEDS ORDERED: INSULIN GLARGINE SOLOSTAR 100 UNITS/ML 3 ML PEN SC SCH (16:30)
[2021-05-02] MEDS: INSULIN GLARGINE SOLOSTAR 100 UNITS/ML 3 ML PEN SC SCH (17:08)
[2021-05-02] MEDS: CHOLECALCIFEROL 1,000 UNITS 25 MCG TAB PO SCH (20:46)
[2021-05-02] MEDS: ATORVASTATIN 40 MG TAB PO SCH (20:46)
[2021-05-03] MEDS: HEPARIN SOD 5,000 UNIT/0.5 ML VIAL SQ SCH ×3 (04:11→20:58)
[2021-05-03 06:39] LABS: Basophils # (auto) 0.01 K/uL (0-0.2); Basophils % (auto) 0.1 %; Eosinophils # (auto) 0.01 K/uL (0-0.5); Eosinophils % (auto) 0.1 %; Hematocrit (blood only) 36.9 % (37-47); Hemoglobin 12.6 g/dL (12.0-16.0); Immature Granulocytes # (auto) 0.16 K/uL (0.00-0.02); Immature Granulocytes % (auto) 1.3 %; Lymphocytes # (auto) 1.27 K/uL (1.2-3.4); Lymphocytes % (auto) 10.4 %; Mean Corpuscular Hemoglobin 30.6 pg (25-34); Mean Corpuscular Hgb Conc 34.1 g/dL (32-36); Mean Corpuscular Volume 89.6 fL (80-100); Mean Platelet Volume 9.9 fL (7.4-10.4); Monocytes # (auto) 1.13 K/uL (0.11-0.59); Monocytes % (auto) 9.3 %; Neutrophils # (auto) 9.58 K/uL (1.4-6.5); Neutrophils % (auto) 78.8 %; Platelet Count 293 K/uL (130-400); RDW Coefficient of Variation 12.5 % (11.5-14.5); RDW Standard Deviation 41.1 fL (36.4-46.3); Red Blood Count 4.12 M/uL (4.2-5.4); White Blood Count 12.16 K/uL (4.8-10.8)
[2021-05-03 07:23] LABS: BUN Creatinine Ratio 21.3 (10-20); Calcium 8.9 mg/dl (8.5-10.1); Creatinine Clr Calc Pharmacy 38.2 ml/min; Est GFR (African American) 32.1 ml/min; Est GFR (Non-African American) 27.7 ml/min; Potassium 4.1 mmol/L (3.5-5.1)
[2021-05-03] MEDS: dexAMETHasone 6 MG in SYRINGE 0 ML IV SCH (08:26)
[2021-05-03] MEDS: guaiFENesin 600 MG TABCR PO SCH ×2 (08:27→20:57)
[2021-05-03] MEDS: BENZONATATE 100 MG CAPSULE PO SCH ×3 (08:27→20:57)
[2021-05-03] MEDS: FAMOTIDINE 20 MG TAB PO SCH (08:28)
[2021-05-03] MEDS: INSULIN HUMAN NPH SC SCH (08:41)
[2021-05-03] MEDS: INSULIN ASPART 100 UNITS/ML 3 ML PEN SC SCH ×5 (08:41→21:56)
[2021-05-03] MEDS ORDERED: FUROSEMIDE 60 MG in SYRINGE 0 ML IV ONE (10:00)
--- NOTE | 2021-05-03 10:43 | Pharmacy Report ---
Pharmacy Glycemic Short Note 2 - Date of Service May 03, 2021 - Glycemic Short BSG Results (Last 24 hours): 05/02/21 05/02/21 05/02/21 11:28 16:47 20:45 Glucose POC Glucose 254 H 129 H 112 H 05/03/21 05/03/21 06:26 07:44 Glucose 106 H POC Glucose 135 H OUTPATIENT ANTIDIABETIC REGIMEN: * [employer] Insulin pump * Basal rate: 1.8 units/hr * Patient does not know other settings ASSESSMENT: 05/03 * 116 units SQ insulin given over last 24 hrs while tolerating a diet * Fasting BSG 106-135 this AM w/ 20 units Lantus + 25 units NPH given in last 24 hrs * Patient's fasting BSG much improved since yesterday. Will titrate Lantus dose down slightly as we have not yet achieved steady state on current dose and BSG may continue to fall at current dose. Patient's diet is also poor this AM, again warranting reconsideration of basal needs if this continues * Post-prandial BSGs fairly well controlled yesterday with current Novolog CF and CR. Will decrease dinner and HS doses however as BSGs much lower at this time of day. * Day 7 of 10 dexamethasone IV 05/01: * Joo received 51 units of insulin yesterday (25 units of basal and 26 units of bolus) and had adequate glycemic control with the exception of an episode of hypoglycemia around dinnertime (BSG 56 mg/dL). * Fasting BSG continues to trend upward. I will add on 15 units of Lantus. Conservative dose selected since patient is also on NPH to cover for steroid induced hyperglycemia. * Novolog was loosened significantly last evening (carb ratio of 2-> 6). I will trial carb ratio of 4. 7/23 * 33 units SQ insulin administered over last 24 hrs with very little PO intake (only 13gm CHOs documented as consumed yesterday) * Fasting BSG 160 this AM having received 20 units NPH in the AM yesterday. Will increase the NPH dose today but will hold off on adding once daily Lantus in the AM at this time given poor PO intake and worsening O2 needs. Will reassess need for Lantus daily * Given little PO intake in last 24 hrs it is difficult to assess Novolog CF and CR doses, however BSG did correct with use at dinnertime yesterday. 04/29 * Patient was transitioned off her insulin pump yesterday evening. She received 40 units Lantus prior to pump discontinuation. * Overnight the patient's BSGs did drop into the 50's - likely due to excess basal. * Patient's BSG did recover this AM into the low 100's. Plan to use once daily Lantus in the AM as well as NPH w/ AM dexamethasone to combat steroid induced hyperglycemia. Will hold the Lantus today however given events of last night. Of note, patient's diet poor this AM. * Novolog CF and CR are reasonable starting points for this patient considering outpt prandial needs and current steroid therapy. 04/27 * 50yo T2DM female with unknown degree of outpatient control - no recent A1c; will order per protocol * Pt is maintained on insulin pump - son brought in extra insulin for her to refill pump and change site tonight * Pt with SEVERE hyperglycemia secondary to illness and dexamethasone * Pt does NOT want SQ insulin on top of insulin pump at this time. She will continue to check her BSG Q2hrs and bolus from pump. 17 units just given at 2014. PLAN FOR INPATIENT GLYCEMIC CONTROL: Basal - decrease * Lantus 15 units SQ daily w/ dinner * Continue NPH 25 units SQ w/ AM dexamethasone 6mg IV Bolus * Novolog SQ ACHS * Goal range: 120 - 150 mg/dL * Correction factor: 10mg/dL/unit w/ breakfast and lunch; 15mg/dL/unit w/ dinner and HS * Carb ratio: 1 unit per 4 grams CHO consumed w/ breakfast and lunch; 1 unit per 5 grams CHO consumed w/ dinner and HS DISCHARGE RECOMMENDATIONS: * to be determined
[2021-05-03] MEDS: ACETAMINOPHEN 325 MG TAB PO PRN ×2 (16:03→21:01)
--- NOTE | 2021-05-03 16:43 | Hospitalist Progress Note ---
Date of Service May 03, 2021 Assessment & Plan (1) COVID-19: Plan: This is a 50yo F with a PMH of DM II, CKD III, HLD and other medical problems listed below who presents with viral symptoms x 6 days and was found to have covid-19 positive PCR test. COVID-19 infection with pneumonia Saturating 98% on 2L NC - will assess O2 saturation on room air Denies cough or SOB CXR with interstitial airspace opacities are seen throughout both lungs. Correlate clinically for evidence of an infectious/inflammatory pneumonitis No leukocytosis. Procal pending - no indication for antibiotics at this time No evidence of anaplasma on peripheral smear, lyme serology negative Continue dexamethasone, gentle IV fluids, supportive care Covid isolation precautions Complaining of cough and with deep cough medications Condition is worse today and requiring up to 3 L of oxygen to maintain saturation Condition got worse overnight and the chest x-ray showed worsening of pneumonia CRP level was 8.69 and prolactin normal Appreciate pulmonology input and recommendation Still requiring 60% of FiO2 to maintain saturation Tocilizumab has been started Monitor PRP and will give more Lasix depending on kidney function tomorrow Clinically much better today and requiring about 5 L of oxygen to maintain saturation Her CRP has been down and kidney function remains stable Remains stable and will continue current management (2) Acute kidney injury superimposed on chronic kidney disease: Plan: Cr elevated at 3.34 in setting of dehydration (baseline Cr ~mid-2s) Gentle hydration, avoid nephrotoxic agents Monitor daily BMP -BUN and creatinine has been improving Advised to drink more fluid and will continue intravenous fluid Kidney function has been improving IV fluid has been stopped and she received 60 of intravenous Lasix this morning We'll monitor PRP-remains stable Check PRP and will administer Lasix to 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 (3) DM II (diabetes mellitus, type II), controlled: Plan: A1c 7.4 in March 2021 Uses insulin pump - almost out of medication but son to bring from home (will send to pharmacy for labeling) Glycemic consult placed Blood sugar has been uncontrolled due to dexamethasone Patient wants to use the insulin pump Blood sugar minimally elevated (4) Hyperlipidemia: Plan: Continue statin DVT Ppx: SQ heparin Code status: FULL PCP: Ade Angel Dispo: Admitted to PCU Discussed with the father Admission and Anticipated Discharge Date Admission Date: April 27, 2021 Subjective 04/28/2021 The patient was seen and examined in telemetry unit and in Covid room She has been feeling a lot better today and does not require any oxygen to maintain saturation She complains today of cough Her blood sugar has been running high and has been difficult to control with insulin pump as per the glycemic pharmacist 04/29/2021 The patient was seen and examined in telemetry unit in Covid room She has been complaining of ongoing cough and nasal congestion Also has diarrhea Her breathing is a little worse today and requiring 2 to 3 L of oxygen to maintain saturation 04/30/2021 The patient was seen and examined in telemetry unit in Covid room Her condition got worse since last night and has been requiring 15 L of oxygen via nasal cannula to maintain saturation X-ray did show worsening of pneumonia bilaterally with increasing CRP level Pulmonology consulted and the patient was started with Tocilizumab 05/01/2021 The patient was seen and examined in telemetry unit and Covid room She has been feeling a little better today and requiring about 5 L of oxygen to maintain saturation She has been maintaining prone position pretty well Has been communicating with me normally 05/02/2021 The patient was seen and examined in telemetry unit in Covid room She has been feeling much better today and has been sitting at the edge of the bed without any acute shortness of breath Still requiring about 5 L of oxygen to maintain saturation Still has profound cough 05/03/2021 The patient was seen and examined in telemetry unit and in Covid room She remains stable Still requiring 6 L of oxygen to maintain saturation Physically feels better Review of Systems Review of Systems: All systems reviewed and are unremarkable except as noted below Respiratory: + cough; no dyspnea Physical Exam Physical Exam: Lying in bed in prone position without any acute distress Eyes: PERRL, conjunctivae normal, anicteric sclerae ENMT: external ear and nose normal, oropharynx normal Neck: trachea midline, no thyromegaly Respiratory: + respiratory distress Auscultation: + diminished lung sounds and + crackles (Occasional crackles at the bases) Cardiovascular: Rate/Rhythm: regular rate and regular rhythm Heart Sounds: normal S1 and normal S2; no murmur Extremities: no edema Gastrointestinal (Abdomen): normal bowel sounds, soft, nontender, no hepatosplenomegaly Musculoskeletal: No acute arthritis in any joint Neurologic: PERRL, EOMI, accommodation nl, no face palsy, no dysarthria Psychiatric: A+Ox3, euthymic affect Lymphatic: no cervical or axillary lymphadenopathy Results & Data Results & Data ([facility]) Vital Signs (Past 12 Hours) Vital Signs Temp Pulse Pulse Resp BP Pulse Ox Pulse Ox 05/03/21 10:00 96 05/03/21 08:00 72 05/03/21 07:48 36.5 C 74 23 165/90 H 90 Laboratory Results Short CBC 05/03/21 Range/Units 06:26 WBC 12.16 H (4.8-10.8) K/uL Hgb 12.6 (12.0-16.0) g/dL Hct 36.9 L (37-47) % Plt Count 293 (130-400) K/uL BMP 05/03/21 06:26 Sodium 137 Potassium 4.1 Chloride 107 Carbon Dioxide 24 BUN 43 H Creatinine 2.03 H Glucose 106 H Calcium 8.9 Medications Administered Current Inpatient Medications Acetaminophen (Acetaminophen 325 Mg Tab) 650 mg PO Q4H PRN PRN Reason: Pain or Fever Stop: 05/27/21 15:31 Last Admin: 05/03/21 16:03 Dose: 650 mg Documented by: Atorvastatin Calcium (Atorvastatin 40 Mg Tab) 40 mg PO HS [facility] Stop: 05/27/21 20:59 Last Admin: 05/02/21 20:46 Dose: 40 mg Documented by: Benzonatate (Benzonatate 100 Mg Capsule) 100 mg PO TID [facility] Stop: 05/28/21 20:59 Last Admin: 05/03/21 13:28 Dose: 100 mg Documented by: Dextrose (Dextrose 50% 50 Ml Syringe) 25 - 50 ml IV UD PRN; Protocol PRN Reason: Hypoglycemia Protocol Stop: 05/27/21 15:29 Last Admin: 04/30/21 17:55 Dose: 25 ml Documented by: Famotidine (Famotidine 20 Mg Tab) 20 mg PO DAILY [facility] Stop: 05/27/21 20:59 Last Admin: 05/03/21 08:28 Dose: 20 mg Documented by: Glucagon (Glucagon For Inj 1 Mg Vial) 1 mg SQ UD PRN; Protocol PRN Reason: Hypoglycemia Protocol Stop: 05/27/21 15:29 Glucose (Glucose 40% Gel 15 Gm Tube) 15 - 30 gm PO UD PRN; Protocol PRN Reason: Hypoglycemia Protocol Stop: 05/27/21 15:29 Glucose (Glucose 10 Tabs/Tube) 4 - 8 tabs PO UD PRN; Protocol PRN Reason: Hypoglycemia Protocol Stop: 05/27/21 15:29 Guaifenesin (Guaifenesin 600 Mg Tabcr) 1,200 mg PO Q12 [facility] Stop: 05/28/21 20:59 Last Admin: 05/03/21 08:27 Dose: 1,200 mg Documented by: Guaifenesin (Guaifenesin Sugar Free 200 Mg/10 Ml Udc) 200 mg PO Q6H PRN PRN Reason: Cough Stop: 05/29/21 22:53 Last Admin: 05/02/21 20:47 Dose: 200 mg Documented by: Heparin Sodium (Porcine) (Heparin Sod 5,000 Unit/0.5 Ml Vial) 7,500 units SQ Q8 [facility] Stop: 05/27/21 15:44 Last Admin: 05/03/21 15:36 Dose: 7,500 units Documented by: Hydrocodone Bit/Homatropine Methylb (Hydrocodone/Homatropine Syrup 5mg/1.5mg 5ml Udp) 5 ml PO Q6H PRN PRN Reason: Cough Stop: 05/13/21 17:37 Last Admin: 05/02/21 14:21 Dose: 5 ml Documented by: Dexamethasone 6 mg/ Syringe 1.5 mls @ 1 mls/min IV DAILY [facility] Stop: 05/08/21 08:59 Last Admin: 05/03/21 08:26 Dose: 1 mls/min Documented by: Insulin Aspart (Insulin Aspart 100 Units/Ml 3 Ml Pen) 0 units SC AC@0730,1130 [facility] Stop: 06/02/21 07:29 Last Admin: 05/03/21 13:00 Dose: 14 units Documented by: Insulin Aspart (Insulin Aspart 100 Units/Ml 3 Ml Pen) 0 units SC 1630,2100 [facility] Stop: 06/02/21 16:29 Insulin Glargine (Insulin Glargine Solostar 100 Units/Ml 3 Ml Pen) 15 units SC QDD [facility] Stop: 06/02/21 16:29 Insulin Human NPH (Insulin Human Nph) 25 units SC QAM [facility] Stop: 05/30/21 08:59 Last Admin: 05/03/21 08:41 Dose: 25 units Documented by: Loperamide HCl (Loperamide Hcl 2 Mg Cap) 2 mg PO Q4H PRN PRN Reason: Diarrhea Stop: 05/29/21 15:59 Last Admin: 04/29/21 17:26 Dose: 2 mg Documented by: Miscellaneous (Carbohydrates For Hypoglycemia ) 15 - 30 gm PO UD PRN PRN Reason: Hypoglycemia Treatment Stop: 05/27/21 15:29 Miscellaneous Information (Pharmacy Glycemic Mgmt Consult) 1 ea N/A UD PRN PRN Reason: Consult Stop: 05/27/21 14:51 Ondansetron HCl (Ondansetron Inj 2 Mg/Ml 2 Ml Vial) 4 mg IV Q6H PRN PRN Reason: Nausea Stop: 05/27/21 15:31 Last Admin: 04/29/21 14:13 Dose: 4 mg Documented by: Vitamin D (Cholecalciferol 1,000 Units 25 Mcg Tab) 1,000 units PO HS [facility] Stop: 05/27/21 20:59 Last Admin: 05/02/21 20:46 Dose: 1,000 units Documented by:
[2021-05-03] MEDS: INSULIN GLARGINE SOLOSTAR 100 UNITS/ML 3 ML PEN SC SCH (17:39)
[2021-05-03] MEDS: ATORVASTATIN 40 MG TAB PO SCH (20:57)
[2021-05-03] MEDS: CHOLECALCIFEROL 1,000 UNITS 25 MCG TAB PO SCH (20:57)
[2021-05-03] MEDS: HYDROcodone/HOMATROPINE SYRUP 5MG/1.5MG 5ML UDP PO PRN (21:13)
[2021-05-04] MEDS: HEPARIN SOD 5,000 UNIT/0.5 ML VIAL SQ SCH ×3 (05:10→21:14)
[2021-05-04 08:13] LABS: BUN Creatinine Ratio 22.8 (10-20); Calcium 8.9 mg/dl (8.5-10.1); Creatinine Clr Calc Pharmacy 36.9 ml/min; Est GFR (African American) 30.5 ml/min; Est GFR (Non-African American) 26.3 ml/min
[2021-05-04] MEDS ORDERED: FUROSEMIDE 60 MG in SYRINGE 0 ML IV ONE (08:30)
[2021-05-04] MEDS: guaiFENesin 600 MG TABCR PO SCH ×2 (09:01→21:14)
[2021-05-04] MEDS: FAMOTIDINE 20 MG TAB PO SCH (09:01)
[2021-05-04] MEDS: dexAMETHasone 6 MG in SYRINGE 0 ML IV SCH (09:02)
[2021-05-04] MEDS: BENZONATATE 100 MG CAPSULE PO SCH ×3 (09:02→21:14)
[2021-05-04] MEDS: INSULIN ASPART 100 UNITS/ML 3 ML PEN SC SCH ×5 (09:20→21:57)
[2021-05-04] MEDS: INSULIN HUMAN NPH SC SCH (09:20)
--- NOTE | 2021-05-04 12:51 | Pharmacy Report ---
Pharmacy Glycemic Short Note 2 - Date of Service May 04, 2021 - Glycemic Short BSG Results (Last 24 hours): 05/03/21 05/03/21 05/04/21 17:06 21:12 07:14 Glucose 96 POC Glucose 277 H 159 H 05/04/21 05/04/21 08:17 12:07 Glucose POC Glucose 102 H 151 H OUTPATIENT ANTIDIABETIC REGIMEN: * [employer] Insulin pump * Basal rate: 1.8 units/hr * Patient does not know other settings ASSESSMENT: 05/04 * 75 units SQ given over last 24 hours while tolerating a diet * Fasting BSG 96-102 this AM w/ 15 units Lantus + 25 units NPH given in last 24 hrs * Post-prandial BSGs controlled on 2 of 3 checks yesterday. Will increase prandial insulin doses w/ breakfast and lunch and dinner BSGs had been elevated. Will continue to utilize lower Novolog doses w/ dinner and HS checks as insulin sensitivity improves second half of the day. 05/03 * 116 units SQ insulin given over last 24 hrs while tolerating a diet * Fasting BSG 106-135 this AM w/ 20 units Lantus + 25 units NPH given in last 24 hrs * Patient's fasting BSG much improved since yesterday. Will titrate Lantus dose down slightly as we have not yet achieved steady state on current dose and BSG may continue to fall at current dose. Patient's diet is also poor this AM, again warranting reconsideration of basal needs if this continues * Post-prandial BSGs fairly well controlled yesterday with current Novolog CF and CR. Will decrease dinner and HS doses however as BSGs much lower at this time of day. * Day dexamethasone IV 05/01: * Joo received 51 units of insulin yesterday (25 units of basal and 26 units of bolus) and had adequate glycemic control with the exception of an episode of hypoglycemia around dinnertime (BSG 56 mg/dL). * Fasting BSG continues to trend upward. I will add on 15 units of Lantus. Conservative dose selected since patient is also on NPH to cover for steroid induced hyperglycemia. * Novolog was loosened significantly last evening (carb ratio of 2-> 6). I will trial carb ratio of 4. 7/23 * 33 units SQ insulin administered over last 24 hrs with very little PO intake (only 13gm CHOs documented as consumed yesterday) * Fasting BSG 160 this AM having received 20 units NPH in the AM yesterday. Will increase the NPH dose today but will hold off on adding once daily Lantus in the AM at this time given poor PO intake and worsening O2 needs. Will reassess need for Lantus daily * Given little PO intake in last 24 hrs it is difficult to assess Novolog CF and CR doses, however BSG did correct with use at dinnertime yesterday. 04/29 * Patient was transitioned off her insulin pump yesterday evening. She received 40 units Lantus prior to pump discontinuation. * Overnight the patient's BSGs did drop into the 50's - likely due to excess basal. * Patient's BSG did recover this AM into the low 100's. Plan to use once daily Lantus in the AM as well as NPH w/ AM dexamethasone to combat steroid induced hyperglycemia. Will hold the Lantus today however given events of last night. Of note, patient's diet poor this AM. * Novolog CF and CR are reasonable starting points for this patient considering outpt prandial needs and current steroid therapy. 04/27 * 50yo T2DM female with unknown degree of outpatient control - no recent A1c; will order per protocol * Pt is maintained on insulin pump - son brought in extra insulin for her to refill pump and change site tonight * Pt with SEVERE hyperglycemia secondary to illness and dexamethasone * Pt does NOT want SQ insulin on top of insulin pump at this time. She will continue to check her BSG Q2hrs and bolus from pump. 17 units just given at 2014. PLAN FOR INPATIENT GLYCEMIC CONTROL: Basal - no change * Lantus 15 units SQ daily w/ dinner * Continue NPH 25 units SQ w/ AM dexamethasone 6mg IV Bolus - increase breakfast and lunch doses * Novolog SQ ACHS * Goal range: 120 - 150 mg/dL * Correction factor: 10 mg/dL/unit w/ breakfast and lunch; 15mg/dL/unit w/ di nner and HS * Carb ratio: 1 unit per 3.5 grams CHO consumed w/ breakfast and lunch; 1 unit per 5 grams CHO consumed w/ dinner and HS DISCHARGE RECOMMENDATIONS: * to be determined
--- NOTE | 2021-05-04 13:54 | Hospitalist Progress Note ---
Date of Service May 04, 2021 Assessment & Plan (1) COVID-19: Plan: This is a 50yo F with a PMH of DM II, CKD III, HLD and other medical problems listed below who presents with viral symptoms x 6 days and was found to have covid-19 positive PCR test. COVID-19 infection with pneumonia Saturating 98% on 2L NC - will assess O2 saturation on room air Denies cough or SOB CXR with interstitial airspace opacities are seen throughout both lungs. Correlate clinically for evidence of an infectious/inflammatory pneumonitis No leukocytosis. Procal pending - no indication for antibiotics at this time No evidence of anaplasma on peripheral smear, lyme serology negative Continue dexamethasone, gentle IV fluids, supportive care Covid isolation precautions Complaining of cough and with deep cough medications Condition is worse today and requiring up to 3 L of oxygen to maintain saturation Condition got worse overnight and the chest x-ray showed worsening of pneumonia CRP level was 8.69 and prolactin normal Appreciate pulmonology input and recommendation Still requiring 60% of FiO2 to maintain saturation Tocilizumab has been administered Monitor PRP and will give more Lasix depending on kidney function tomorrow Clinically much better today and requiring about 5 L of oxygen to maintain saturation Her CRP has been down and kidney function remains stable Clinically much better and received another dose of Lasix today to maintain negative balance Cough is better but has weakness We will get PT and OT on further improvement (2) Acute kidney injury superimposed on chronic kidney disease: Plan: Cr elevated at 3.34 in setting of dehydration (baseline Cr ~mid-2s) Gentle hydration, avoid nephrotoxic agents Monitor daily BMP -BUN and creatinine has been improving Advised to drink more fluid and will continue intravenous fluid Kidney function has been improving IV fluid has been stopped and she received 60 of intravenous Lasix this morning We'll monitor PRP-remains stable Check PRP and will administer Lasix to 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 Received another dose of Lasix today Monitor PRP (3) DM II (diabetes mellitus, type II), controlled: Plan: A1c 7.4 in March 2021 Uses insulin pump - almost out of medication but son to bring from home (will send to pharmacy for labeling) Glycemic consult placed Blood sugar has been uncontrolled due to dexamethasone Patient wants to use the insulin pump Blood sugar minimally elevated (4) Hyperlipidemia: Plan: Continue statin DVT Ppx: SQ heparin Code status: FULL PCP: Ade Angel Dispo: Admitted to PCU Discussed with the father Admission and Anticipated Discharge Date Admission Date: April 27, 2021 Subjective 04/28/2021 The patient was seen and examined in telemetry unit and in Covid room She has been feeling a lot better today and does not require any oxygen to maintain saturation She complains today of cough Her blood sugar has been running high and has been difficult to control with insulin pump as per the glycemic pharmacist 04/29/2021 The patient was seen and examined in telemetry unit in Covid room She has been complaining of ongoing cough and nasal congestion Also has diarrhea Her breathing is a little worse today and requiring 2 to 3 L of oxygen to maintain saturation 04/30/2021 The patient was seen and examined in telemetry unit in Covid room Her condition got worse since last night and has been requiring 15 L of oxygen via nasal cannula to maintain saturation X-ray did show worsening of pneumonia bilaterally with increasing CRP level Pulmonology consulted and the patient was started with Tocilizumab 05/01/2021 The patient was seen and examined in telemetry unit and Covid room She has been feeling a little better today and requiring about 5 L of oxygen to maintain saturation She has been maintaining prone position pretty well Has been communicating with me normally 05/02/2021 The patient was seen and examined in telemetry unit in Covid room She has been feeling much better today and has been sitting at the edge of the bed without any acute shortness of breath Still requiring about 5 L of oxygen to maintain saturation Still has profound cough 05/03/2021 The patient was seen and examined in telemetry unit and in Covid room She remains stable Still requiring 6 L of oxygen to maintain saturation Physically feels better 05/04/2021 The patient was seen and examined in telemetry unit and in Covid room She has been feeling a lot better today Still requiring about 5 L of oxygen to maintain saturation She feels weak and lethargic but cough is much better Review of Systems Review of Systems: All systems reviewed and are unremarkable except as noted below Respiratory: + cough; no dyspnea Physical Exam Physical Exam: Lying in bed in prone position without any acute distress Eyes: PERRL, conjunctivae normal, anicteric sclerae ENMT: external ear and nose normal, oropharynx normal Neck: trachea midline, no thyromegaly Respiratory: + respiratory distress Auscultation: + diminished lung sounds and + crackles (Occasional crackles at the bases) Cardiovascular: Rate/Rhythm: regular rate and regular rhythm Heart Sounds: normal S1 and normal S2; no murmur Extremities: no edema Gastrointestinal (Abdomen): normal bowel sounds, soft, nontender, no hepatosplenomegaly Musculoskeletal: No acute arthritis in any joint Neurologic: PERRL, EOMI, accommodation nl, no face palsy, no dysarthria Psychiatric: A+Ox3, euthymic affect Lymphatic: no cervical or axillary lymphadenopathy Results & Data Results & Data ([facility]) Vital Signs (Past 12 Hours) Vital Signs Temp Pulse Pulse Pulse Resp BP Pulse Ox 05/04/21 12:10 36.9 C 80 20 144/87 H 94 05/04/21 08:19 36.7 C 80 20 129/82 93 05/04/21 08:00 62 05/04/21 03:59 36.8 C 62 18 153/94 H 95 Laboratory Results BMP 05/04/21 07:14 Sodium 137 Potassium 4.0 Chloride 105 Carbon Dioxide 25 BUN 48 H Creatinine 2.12 H Glucose 96 Calcium 8.9 Medications Administered Current Inpatient Medications Acetaminophen (Acetaminophen 325 Mg Tab) 650 mg PO Q4H PRN PRN Reason: Pain or Fever Stop: 05/27/21 15:31 Last Admin: 05/03/21 21:01 Dose: 650 mg Documented by: Atorvastatin Calcium (Atorvastatin 40 Mg Tab) 40 mg PO HS [facility] Stop: 05/27/21 20:59 Last Admin: 05/03/21 20:57 Dose: 40 mg Documented by: Benzonatate (Benzonatate 100 Mg Capsule) 100 mg PO TID [facility] Stop: 05/28/21 20:59 Last Admin: 05/04/21 13:24 Dose: 100 mg Documented by: Dextrose (Dextrose 50% 50 Ml Syringe) 25 - 50 ml IV UD PRN; Protocol PRN Reason: Hypoglycemia Protocol Stop: 05/27/21 15:29 Last Admin: 04/30/21 17:55 Dose: 25 ml Documented by: Famotidine (Famotidine 20 Mg Tab) 20 mg PO DAILY [facility] Stop: 05/27/21 20:59 Last Admin: 05/04/21 09:01 Dose: 20 mg Documented by: Glucagon (Glucagon For Inj 1 Mg Vial) 1 mg SQ UD PRN; Protocol PRN Reason: Hypoglycemia Protocol Stop: 05/27/21 15:29 Glucose (Glucose 40% Gel 15 Gm Tube) 15 - 30 gm PO UD PRN; Protocol PRN Reason: Hypoglycemia Protocol Stop: 05/27/21 15:29 Glucose (Glucose 10 Tabs/Tube) 4 - 8 tabs PO UD PRN; Protocol PRN Reason: Hypoglycemia Protocol Stop: 05/27/21 15:29 Guaifenesin (Guaifenesin 600 Mg Tabcr) 1,200 mg PO Q12 [facility] Stop: 05/28/21 20:59 Last Admin: 05/04/21 09:01 Dose: 1,200 mg Documented by: Guaifenesin (Guaifenesin Sugar Free 200 Mg/10 Ml Udc) 200 mg PO Q6H PRN PRN Reason: Cough Stop: 05/29/21 22:53 Last Admin: 05/02/21 20:47 Dose: 200 mg Documented by: Heparin Sodium (Porcine) (Heparin Sod 5,000 Unit/0.5 Ml Vial) 7,500 units SQ Q8 [facility] Stop: 05/27/21 15:44 Last Admin: 05/04/21 13:24 Dose: 7,500 units Documented by: Hydrocodone Bit/Homatropine Methylb (Hydrocodone/Homatropine Syrup 5mg/1.5mg 5ml Udp) 5 ml PO Q6H PRN PRN Reason: Cough Stop: 05/13/21 17:37 Last Admin: 05/03/21 21:13 Dose: 5 ml Documented by: Dexamethasone 6 mg/ Syringe 1.5 mls @ 1 mls/min IV DAILY [facility] Stop: 05/08/21 08:59 Last Admin: 05/04/21 09:02 Dose: 1 mls/min Documented by: Insulin Aspart (Insulin Aspart 100 Units/Ml 3 Ml Pen) 0 units SC AC@0730,1130 [facility] Stop: 06/02/21 07:29 Last Admin: 05/04/21 13:41 Dose: 13 units Documented by: Insulin Aspart (Insulin Aspart 100 Units/Ml 3 Ml Pen) 0 units SC 1630,2100 [facility] Stop: 06/02/21 16:29 Last Admin: 05/03/21 21:56 Dose: 1 units Documented by: Insulin Glargine (Insulin Glargine Solostar 100 Units/Ml 3 Ml Pen) 15 units SC QDD [facility] Stop: 06/02/21 16:29 Last Admin: 05/03/21 17:39 Dose: 15 units Documented by: Insulin Human NPH (Insulin Human Nph) 25 units SC QAM [facility] Stop: 05/30/21 08:59 Last Admin: 05/04/21 09:20 Dose: 25 units Documented by: Loperamide HCl (Loperamide Hcl 2 Mg Cap) 2 mg PO Q4H PRN PRN Reason: Diarrhea Stop: 05/29/21 15:59 Last Admin: 04/29/21 17:26 Dose: 2 mg Documented by: Miscellaneous (Carbohydrates For Hypoglycemia ) 15 - 30 gm PO UD PRN PRN Reason: Hypoglycemia Treatment Stop: 05/27/21 15:29 Miscellaneous Information (Pharmacy Glycemic Mgmt Consult) 1 ea N/A UD PRN PRN Reason: Consult Stop: 05/27/21 14:51 Ondansetron HCl (Ondansetron Inj 2 Mg/Ml 2 Ml Vial) 4 mg IV Q6H PRN PRN Reason: Nausea Stop: 05/27/21 15:31 Last Admin: 04/29/21 14:13 Dose: 4 mg Documented by: Vitamin D (Cholecalciferol 1,000 Units 25 Mcg Tab) 1,000 units PO HS [facility] Stop: 05/27/21 20:59 Last Admin: 05/03/21 20:57 Dose: 1,000 units Documented by:
[2021-05-04] MEDS: INSULIN GLARGINE SOLOSTAR 100 UNITS/ML 3 ML PEN SC SCH (17:51)
[2021-05-04] MEDS: ACETAMINOPHEN 325 MG TAB PO PRN (21:08)
[2021-05-04] MEDS: CHOLECALCIFEROL 1,000 UNITS 25 MCG TAB PO SCH (21:14)
[2021-05-04] MEDS: ATORVASTATIN 40 MG TAB PO SCH (21:14)
[2021-05-04] MEDS: guaiFENesin SUGAR FREE 200 MG/10 ML UDC PO PRN (21:20)
[2021-05-05] MEDS: ACETAMINOPHEN 325 MG TAB PO PRN ×3 (03:46→22:09)
[2021-05-05] MEDS: HEPARIN SOD 5,000 UNIT/0.5 ML VIAL SQ SCH ×3 (06:44→22:08)
[2021-05-05] MEDS: guaiFENesin 600 MG TABCR PO SCH ×2 (08:07→22:09)
[2021-05-05] MEDS: BENZONATATE 100 MG CAPSULE PO SCH ×3 (08:07→22:09)
[2021-05-05] MEDS: dexAMETHasone 6 MG in SYRINGE 0 ML IV SCH (08:07)
[2021-05-05] MEDS: FAMOTIDINE 20 MG TAB PO SCH (08:08)
[2021-05-05] MEDS: INSULIN ASPART 100 UNITS/ML 3 ML PEN SC SCH ×4 (08:18→22:55)
[2021-05-05] MEDS: INSULIN HUMAN NPH SC SCH (08:19)
[2021-05-05 09:14] LABS: BUN Creatinine Ratio 26.3 (10-20); Calcium 9.1 mg/dl (8.5-10.1); Creatinine Clr Calc Pharmacy 35.5 ml/min; Est GFR (African American) 29.9 ml/min; Est GFR (Non-African American) 25.8 ml/min; Potassium 3.8 mmol/L (3.5-5.1)
--- NOTE | 2021-05-05 11:44 | Pharmacy Report ---
Pharmacy Glycemic Short Note 2 - Date of Service May 05, 2021 - Glycemic Short BSG Results (Last 24 hours): 05/04/21 05/04/21 05/04/21 12:07 17:00 21:04 Glucose POC Glucose 151 H 243 H 205 H 05/05/21 05/05/21 08:02 08:27 Glucose 128 H POC Glucose 122 H OUTPATIENT ANTIDIABETIC REGIMEN: * Medtronic Insulin pump * Basal rate: 1.8 units/hr * Patient does not know other settings ASSESSMENT: 05/05 * 76 units SQ given over last 24 hours while tolerating a diet however only consumed 2 of 3 meals per documentation * Fasting BSG at goal this AM (FBS 122) w/ 15 units Lantus + 25 units NPH given in last 24 hrs * Post-prandial BSGs only controlled on 1 of 3 checks yesterday. Will increase AM NPH dose to help. Will continue current Novolog CR and CF * Dexamethasone 6mg IV Q AM remains ordered for next 2 days before d/c 05/04 * 75 units SQ given over last 24 hours while tolerating a diet * Fasting BSG 96-102 this AM w/ 15 units Lantus + 25 units NPH given in last 24 hrs * Post-prandial BSGs controlled on 2 of 3 checks yesterday. Will increase prandial insulin doses w/ breakfast and lunch and dinner BSGs had been elevated. Will continue to utilize lower Novolog doses w/ dinner and HS checks as insulin sensitivity improves second half of the day. 05/03 * 116 units SQ insulin given over last 24 hrs while tolerating a diet * Fasting BSG 106-135 this AM w/ 20 units Lantus + 25 units NPH given in last 24 hrs * Patient's fasting BSG much improved since yesterday. Will titrate Lantus dose down slightly as we have not yet achieved steady state on current dose and BSG may continue to fall at current dose. Patient's diet is also poor this AM, again warranting reconsideration of basal needs if this continues * Post-prandial BSGs fairly well controlled yesterday with current Novolog CF and CR. Will decrease dinner and HS doses however as BSGs much lower at this time of day. * Day 7 of dexamethasone IV 05/01: * Joo received 51 units of insulin yesterday (25 units of basal and 26 units of bolus) and had adequate glycemic control with the exception of an episode of hypoglycemia around dinnertime (BSG 56 mg/dL). * Fasting BSG continues to trend upward. I will add on 15 units of Lantus. Conservative dose selected since patient is also on NPH to cover for steroid induced hyperglycemia. * Novolog was loosened significantly last evening (carb ratio of 2-> 6). I will trial carb ratio of 4. PLAN FOR INPATIENT GLYCEMIC CONTROL: Basal - increase * Lantus 15 units SQ daily w/ dinner * increase NPH to 30 units SQ w/ AM dexamethasone 6mg IV Bolus - increase breakfast and lunch doses * Novolog SQ ACHS * Goal range: 120 - 150 mg/dL * Correction factor: 10 mg/dL/unit w/ breakfast and lunch; 15mg/dL/unit w/ dinner and HS * Carb ratio: 1 unit per 3.5 grams CHO consumed w/ breakfast and lunch; 1 unit per 5 grams CHO consumed w/ dinner and HS DISCHARGE RECOMMENDATIONS: * to be determined
--- NOTE | 2021-05-05 16:31 | Hospitalist Progress Note ---
Date of Service May 05, 2021 Assessment & Plan (1) COVID-19: Plan: This is a 50yo F with a PMH of DM II, CKD III, HLD and other medical problems listed below who presents with viral symptoms x 6 days and was found to have covid-19 positive PCR test. COVID-19 infection with pneumonia Saturating 98% on 2L NC - will assess O2 saturation on room air Denies cough or SOB CXR with interstitial airspace opacities are seen throughout both lungs. Correlate clinically for evidence of an infectious/inflammatory pneumonitis No leukocytosis. Procal pending - no indication for antibiotics at this time No evidence of anaplasma on peripheral smear, lyme serology negative Continue dexamethasone, gentle IV fluids, supportive care Covid isolation precautions Complaining of cough and with deep cough medications Condition is worse today and requiring up to 3 L of oxygen to maintain saturation Condition got worse overnight and the chest x-ray showed worsening of pneumonia CRP level was 8.69 and prolactin normal Appreciate pulmonology input and recommendation Still requiring 60% of FiO2 to maintain saturation Tocilizumab has been administered Monitor PRP and will give more Lasix depending on kidney function tomorrow Clinically much better today and requiring about 5 L of oxygen to maintain saturation Her CRP has been down and kidney function remains stable Clinically much better and received another dose of Lasix today to maintain negative balance Her creatinine is 2.15 and she is a negative balance-we will hold off any more Lasix Clinically much better Will need PT and OT evaluation and possible to do steps O2 saturation before discharge (2) Acute kidney injury superimposed on chronic kidney disease: Plan: Cr elevated at 3.34 in setting of dehydration (baseline Cr ~mid-2s) Gentle hydration, avoid nephrotoxic agents Monitor daily BMP -BUN and creatinine has been improving Advised to drink more fluid and will continue intravenous fluid Kidney function has been improving IV fluid has been stopped and she received 60 of intravenous Lasix this morning We'll monitor PRP-remains stable Check PRP and will administer Lasix to keep her on the raw stock drier tender side Received another dose of Lasix today Monitor PRP-stable at 2.15 (3) DM II (diabetes mellitus, type II), controlled: Plan: A1c 7.4 in March 2021 Uses insulin pump - almost out of medication but son to bring from home (will send to pharmacy for labeling) Glycemic consult placed Blood sugar has been uncontrolled due to dexamethasone Patient wants to use the insulin pump Blood sugar minimally elevated-managed by glycemic pharmacist (4) Hyperlipidemia: Plan: Continue statin DVT Ppx: SQ heparin Code status: FULL PCP: Ade Angel Dispo: Admitted to PCU Discussed with the father Admission and Anticipated Discharge Date Admission Date: April 27, 2021 Subjective 04/28/2021 The patient was seen and examined in telemetry unit and in Covid room She has been feeling a lot better today and does not require any oxygen to maintain saturation She complains today of cough Her blood sugar has been running high and has been difficult to control with insulin pump as per the glycemic pharmacist 04/29/2021 The patient was seen and examined in telemetry unit in Covid room She has been complaining of ongoing cough and nasal congestion Also has diarrhea Her breathing is a little worse today and requiring 2 to 3 L of oxygen to maintain saturation 04/30/2021 The patient was seen and examined in telemetry unit in Covid room Her condition got worse since last night and has been requiring 15 L of oxygen via nasal cannula to maintain saturation X-ray did show worsening of pneumonia bilaterally with increasing CRP level Pulmonology consulted and the patient was started with Tocilizumab 05/01/2021 The patient was seen and examined in telemetry unit and Covid room She has been feeling a little better today and requiring about 5 L of oxygen to maintain saturation She has been maintaining prone position pretty well Has been communicating with me normally 05/02/2021 The patient was seen and examined in telemetry unit in Covid room She has been feeling much better today and has been sitting at the edge of the bed without any acute shortness of breath Still requiring about 5 L of oxygen to maintain saturation Still has profound cough 05/03/2021 The patient was seen and examined in telemetry unit and in Covid room She remains stable Still requiring 6 L of oxygen to maintain saturation Physically feels better 05/04/2021 The patient was seen and examined in telemetry unit and in Covid room She has been feeling a lot better today Still requiring about 5 L of oxygen to maintain saturation She feels weak and lethargic but cough is much better 05/05/2021 The patient was seen and examined in telemetry unit and in Covid room She has been feeling a lot better today and has been ambulating in the room without much shortness of breath Her cough is better and she still requires about 5 L of oxygen to maintain saturation Review of Systems Review of Systems: All systems reviewed and are unremarkable except as noted below Respiratory: + cough; no dyspnea Physical Exam Physical Exam: Lying in bed without any acute distress Eyes: PERRL, conjunctivae normal, anicteric sclerae ENMT: external ear and nose normal, oropharynx normal Neck: trachea midline, no thyromegaly Respiratory: + respiratory distress Auscultation: + diminished lung sounds and + crackles (Occasional crackles at the bases) Cardiovascular: Rate/Rhythm: regular rate and regular rhythm Heart Sounds: normal S1 and normal S2; no murmur Extremities: no edema Gastrointestinal (Abdomen): normal bowel sounds, soft, nontender, no hepatosplenomegaly Musculoskeletal: No acute arthritis in any joint Neurologic: PERRL, EOMI, accommodation nl, no face palsy, no dysarthria Psychiatric: A+Ox3, euthymic affect Lymphatic: no cervical or axillary lymphadenopathy Results & Data Results & Data ([facility]) Vital Signs (Past 12 Hours) Vital Signs Temp Pulse Pulse Pulse Resp BP Pulse Ox 05/05/21 16:00 79 05/05/21 12:00 36.6 C 96 H 20 125/72 94 05/05/21 10:00 05/05/21 08:40 36.7 C 89 19 128/75 96 05/05/21 08:00 60 Pulse Ox 05/05/21 16:00 05/05/21 12:00 05/05/21 10:00 97 05/05/21 08:40 05/05/21 08:00 Laboratory Results BMP 05/05/21 08:27 Sodium 135 L Potassium 3.8 Chloride 102 Carbon Dioxide 28 BUN 57 H Creatinine 2.15 H Glucose 128 H Calcium 9.1 Medications Administered Current Inpatient Medications Acetaminophen (Acetaminophen 325 Mg Tab) 650 mg PO Q4H PRN PRN Reason: Pain or Fever Stop: 05/27/21 15:31 Last Admin: 05/05/21 12:05 Dose: 650 mg Documented by: Atorvastatin Calcium (Atorvastatin 40 Mg Tab) 40 mg PO HS [facility] Stop: 05/27/21 20:59 Last Admin: 05/04/21 21:14 Dose: 40 mg Documented by: Benzonatate (Benzonatate 100 Mg Capsule) 100 mg PO TID [facility] Stop: 05/28/21 20:59 Last Admin: 05/05/21 12:05 Dose: 100 mg Documented by: Dextrose (Dextrose 50% 50 Ml Syringe) 25 - 50 ml IV UD PRN; Protocol PRN Reason: Hypoglycemia Protocol Stop: 05/27/21 15:29 Last Admin: 04/30/21 17:55 Dose: 25 ml Documented by: Famotidine (Famotidine 20 Mg Tab) 20 mg PO DAILY [facility] Stop: 05/27/21 20:59 Last Admin: 05/05/21 08:08 Dose: 20 mg Documented by: Glucagon (Glucagon For Inj 1 Mg Vial) 1 mg SQ UD PRN; Protocol PRN Reason: Hypoglycemia Protocol Stop: 05/27/21 15:29 Glucose (Glucose 40% Gel 15 Gm Tube) 15 - 30 gm PO UD PRN; Protocol PRN Reason: Hypoglycemia Protocol Stop: 05/27/21 15:29 Glucose (Glucose 10 Tabs/Tube) 4 - 8 tabs PO UD PRN; Protocol PRN Reason: Hypoglycemia Protocol Stop: 05/27/21 15:29 Guaifenesin (Guaifenesin 600 Mg Tabcr) 1,200 mg PO Q12 [facility] Stop: 05/28/21 20:59 Last Admin: 05/05/21 08:07 Dose: 1,200 mg Documented by: Guaifenesin (Guaifenesin Sugar Free 200 Mg/10 Ml Udc) 200 mg PO Q6H PRN PRN Reason: Cough Stop: 05/29/21 22:53 Last Admin: 05/04/21 21:20 Dose: 200 mg Documented by: Heparin Sodium (Porcine) (Heparin Sod 5,000 Unit/0.5 Ml Vial) 7,500 units SQ Q8 [facility] Stop: 05/27/21 15:44 Last Admin: 05/05/21 12:05 Dose: 7,500 units Documented by: Hydrocodone Bit/Homatropine Methylb (Hydrocodone/Homatropine Syrup 5mg/1.5mg 5ml Udp) 5 ml PO Q6H PRN PRN Reason: Cough Stop: 05/13/21 17:37 Last Admin: 05/03/21 21:13 Dose: 5 ml Documented by: Dexamethasone 6 mg/ Syringe 1.5 mls @ 1 mls/min IV DAILY [facility] Stop: 05/08/21 08:59 Last Admin: 05/05/21 08:07 Dose: 1 mls/min Documented by: Insulin Aspart (Insulin Aspart 100 Units/Ml 3 Ml Pen) 0 units SC AC@0730,1130 [facility] Stop: 06/02/21 07:29 Last Admin: 05/05/21 12:43 Dose: 21 units Documented by: Insulin Aspart (Insulin Aspart 100 Units/Ml 3 Ml Pen) 0 units SC 1630,2100 [facility] Stop: 06/02/21 16:29 Last Admin: 05/04/21 21:57 Dose: 4 units Documented by: Insulin Glargine (Insulin Glargine Solostar 100 Units/Ml 3 Ml Pen) 15 units SC QDD [facility] Stop: 06/02/21 16:29 Last Admin: 05/04/21 17:51 Dose: 15 units Documented by: Insulin Human NPH (Insulin Human Nph) 30 units SC QAM [facility] Stop: 06/04/21 08:59 Last Admin: 05/05/21 08:19 Dose: 30 units Documented by: Loperamide HCl (Loperamide Hcl 2 Mg Cap) 2 mg PO Q4H PRN PRN Reason: Diarrhea Stop: 05/29/21 15:59 Last Admin: 04/29/21 17:26 Dose: 2 mg Documented by: Miscellaneous (Carbohydrates For Hypoglycemia ) 15 - 30 gm PO UD PRN PRN Reason: Hypoglycemia Treatment Stop: 05/27/21 15:29 Miscellaneous Information (Pharmacy Glycemic Mgmt Consult) 1 ea N/A UD PRN PRN Reason: Consult Stop: 05/27/21 14:51 Ondansetron HCl (Ondansetron Inj 2 Mg/Ml 2 Ml Vial) 4 mg IV Q6H PRN PRN Reason: Nausea Stop: 05/27/21 15:31 Last Admin: 04/29/21 14:13 Dose: 4 mg Documented by: Vitamin D (Cholecalciferol 1,000 Units 25 Mcg Tab) 1,000 units PO HS [facility] Stop: 05/27/21 20:59 Last Admin: 05/04/21 21:14 Dose: 1,000 units Documented by:
[2021-05-05] MEDS: INSULIN GLARGINE SOLOSTAR 100 UNITS/ML 3 ML PEN SC SCH (17:03)
[2021-05-05] MEDS: CHOLECALCIFEROL 1,000 UNITS 25 MCG TAB PO SCH (22:09)
[2021-05-05] MEDS: ATORVASTATIN 40 MG TAB PO SCH (22:09)
[2021-05-06] MEDS: HEPARIN SOD 5,000 UNIT/0.5 ML VIAL SQ SCH ×3 (06:18→21:02)
[2021-05-06 06:52] LABS: Hematocrit (blood only) 39.5 % (37-47); Hemoglobin 13.4 g/dL (12.0-16.0); Mean Corpuscular Hemoglobin 30.2 pg (25-34); Mean Corpuscular Hgb Conc 33.9 g/dL (32-36); Mean Corpuscular Volume 89.2 fL (80-100); Mean Platelet Volume 10.3 fL (7.4-10.4); Platelet Count 380 K/uL (130-400); RDW Coefficient of Variation 12.2 % (11.5-14.5); RDW Standard Deviation 39.3 fL (36.4-46.3); Red Blood Count 4.43 M/uL (4.2-5.4)
[2021-05-06 07:16] LABS: Basophils # (auto) 0.04 K/uL (0-0.2); Basophils % (auto) 0.2 %; Eosinophils # (auto) 0.08 K/uL (0-0.5); Eosinophils % (auto) 0.4 %; Immature Granulocytes # (auto) 1.07 K/uL (0.00-0.02); Immature Granulocytes % (auto) 5.2 %; Lymphocytes # (auto) 2.74 K/uL (1.2-3.4); Lymphocytes % (auto) 13.4 %; Monocytes # (auto) 1.05 K/uL (0.11-0.59); Monocytes % (auto) 5.1 %; Neutrophils # (auto) 15.42 K/uL (1.4-6.5); Neutrophils % (auto) 75.7 %
[2021-05-06 07:28] LABS: BUN Creatinine Ratio 25.7 (10-20); Calcium 8.9 mg/dl (8.5-10.1); Creatinine Clr Calc Pharmacy 37.2 ml/min; Est GFR (African American) 32.1 ml/min; Est GFR (Non-African American) 27.7 ml/min; Magnesium 2.2 mg/dl (1.8-2.4)
[2021-05-06] MEDS: BENZONATATE 100 MG CAPSULE PO SCH ×3 (08:59→21:02)
[2021-05-06] MEDS: FAMOTIDINE 20 MG TAB PO SCH (08:59)
[2021-05-06] MEDS: guaiFENesin 600 MG TABCR PO SCH ×2 (09:00→21:02)
[2021-05-06] MEDS: dexAMETHasone 6 MG in SYRINGE 0 ML IV SCH (09:14)
[2021-05-06] MEDS: INSULIN ASPART 100 UNITS/ML 3 ML PEN SC SCH ×4 (09:43→21:37)
[2021-05-06] MEDS: INSULIN HUMAN NPH SC SCH (09:43)
[2021-05-06] MEDS: POLYETHYLENE (MIRALAX) 17 GM PACK PO PRN (10:20)
--- NOTE | 2021-05-06 12:47 | Pharmacy Report ---
Pharmacy Glycemic Short Note 2 - Date of Service May 06, 2021 - Glycemic Short BSG Results (Last 24 hours): 05/05/21 05/05/21 05/06/21 16:43 22:00 06:27 Glucose 104 H POC Glucose 278 H 151 H 05/06/21 05/06/21 08:08 11:57 Glucose POC Glucose 111 H 221 H OUTPATIENT ANTIDIABETIC REGIMEN: * Medtronic Insulin pump * Basal rate: 1.8 units/hr * Patient does not know other settings ASSESSMENT: 05/06 * 95 units SQ given over previous 24 hours with diet * Fasting BSG 111 mg/dL is at goal. Will continue current lantus + NPH regimen with dexamethasone administration * Lunch BSG elevated, however breakfast was late ~0945, did tighten carb ratio with lunch as dinner tends to be highest BSG. 05/05 * 76 units SQ given over last 24 hours while tolerating a diet however only consumed 2 of 3 meals per documentation * Fasting BSG at goal this AM (FBS 122) w/ 15 units Lantus + 25 units NPH given in last 24 hrs * Post-prandial BSGs only controlled on 1 of 3 checks yesterday. Will increase AM NPH dose to help. Will continue current Novolog CR and CF * Dexamethasone 6mg IV Q AM remains ordered for next 2 days before d/c 05/04 * 75 units SQ given over last 24 hours while tolerating a diet * Fasting BSG 96-102 this AM w/ 15 units Lantus + 25 units NPH given in last 24 hrs * Post-prandial BSGs controlled on 2 of 3 checks yesterday. Will increase prandial insulin doses w/ breakfast and lunch and dinner BSGs had been elevated. Will continue to utilize lower Novolog doses w/ dinner and HS checks as insulin sensitivity improves second half of the day. 05/03 * 116 units SQ insulin given over last 24 hrs while tolerating a diet * Fasting BSG 106-135 this AM w/ 20 units Lantus + 25 units NPH given in last 24 hrs * Patient's fasting BSG much improved since yesterday. Will titrate Lantus dose down slightly as we have not yet achieved steady state on current dose and BSG may continue to fall at current dose. Patient's diet is also poor this AM, again warranting reconsideration of basal needs if this continues * Post-prandial BSGs fairly well controlled yesterday with current Novolog CF and CR. Will decrease dinner and HS doses however as BSGs much lower at this time of day. * Day 7 of 10 dexamethasone IV 05/01: * Joo received 51 units of insulin yesterday (25 units of basal and 26 units of bolus) and had adequate glycemic control with the exception of an episode of hypoglycemia around dinnertime (BSG 56 mg/dL). * Fasting BSG continues to trend upward. I will add on 15 units of Lantus. Conservative dose selected since patient is also on NPH to cover for steroid induced hyperglycemia. * Novolog was loosened significantly last evening (carb ratio of 2-> 6). I will trial carb ratio of 4. PLAN FOR INPATIENT GLYCEMIC CONTROL: Basal - continue * Lantus 15 units SQ daily w/ dinner * increase NPH to 30 units SQ w/ AM dexamethasone 6mg IV Bolus - increase lunch doses * Novolog SQ ACHS * Goal range: 120 - 150 mg/dL * Correction factor: 10 mg/dL/unit w/ breakfast and lunch; 15mg/dL/unit w/ dinner and HS * Carb ratio: 1 unit per 3.5 grams CHO consumed w/ breakfast; 1 units per 3.5 grams CHO consumed w/ lunch; 1 unit per 5 grams CHO consumed w/ dinner and HS DISCHARGE RECOMMENDATIONS: * to be determined
--- NOTE | 2021-05-06 16:48 | Hospitalist Progress Note ---
Date of Service May 06, 2021 Assessment & Plan (1) COVID-19: Plan: This is a 50yo F with a PMH of DM II, CKD III, HLD and other medical problems listed below who presents with viral symptoms x 6 days and was found to have covid-19 positive PCR test. COVID-19 infection with pneumonia CXR with interstitial airspace opacities are seen throughout both lungs. Correlate clinically for evidence of an infectious/inflammatory pneumonitis No leukocytosis. Procalcitonin normal - no indication for antibiotics at this time No evidence of anaplasma on peripheral smear, lyme serology negative Continue supportive care with dexamethasone CRP level was 8.69 and prolactin normal Repeat chest x-ray showed worsening of pneumonia Tocilizumab was administered Received Lasix IV Clinically improved and continue to require 3L NC nasal cannula Covid 19 isolation precautions Continue monitor closely (2) Acute kidney injury superimposed on chronic kidney disease: Plan: Cr elevated at 3.34 in setting of dehydration (baseline Cr ~mid-2s) Gentle hydration, avoid nephrotoxic agents Monitor daily BMP -BUN and creatinine has been improving Advised to drink more fluid and will continue intravenous fluid Kidney function has been improving IV fluid has been stopped and she received 60 of intravenous Lasix this morning We'll monitor PRP-remains stable Check PRP and will administer Lasix to keep her on the dry side Monitor PRP-stable at 2.03 (3) DM II (diabetes mellitus, type II), controlled: Plan: A1c 7.4 in March 2021 Uses insulin pump - almost out of medication but son to bring from home (will send to pharmacy for labeling) Glycemic consult placed Blood sugar has been uncontrolled due to dexamethasone Patient wants to use the insulin pump Blood sugar minimally elevated-managed by glycemic pharmacist (4) Hyperlipidemia: Plan: Continue statin DVT Ppx: SQ heparin Code status: FULL PCP: Ade Angel Dispo: Continue monitor closely in the PCU Admission and Anticipated Discharge Date Admission Date: April 27, 2021 Subjective Patient was seen and examined for follow-up of shortness of breath due to COVID- 19 Lying in bed proning with no acute respiratory distress she continues to require 3 L oxygen She said her breathing improved but continues to have shortness of breath with exertion Denies any chest pain, palpitation, dizziness, and fever. Physical Exam Physical Exam: General- No acute distress Head- atraumatic Eyes- PERRL, EOMI, ENT- oropharynx clear Neck- supple, no JVD Lungs- +diminished BS Heart- regular rhythm; no murmur Abdomen- normal bowel sounds, soft, nontender Extremities- no calf tenderness Neuro- alert, oriented x 3; PERRL, EOMI; no facial palsy; no dysarthria Skin- warm & dry Results & Data Results & Data ([facility]) Vital Signs (Past 12 Hours) Vital Signs Temp Pulse Pulse Resp BP Pulse Ox Pulse Ox 05/06/21 16:04 37 C 81 22 119/67 92 05/06/21 15:36 86 05/06/21 13:00 93 05/06/21 12:00 36.9 C 97 H 20 148/84 H 92 05/06/21 10:00 95 05/06/21 08:10 36.9 C 86 18 123/69 95 05/06/21 07:08 69
[2021-05-06] MEDS: INSULIN GLARGINE SOLOSTAR 100 UNITS/ML 3 ML PEN SC SCH (18:32)
[2021-05-06] MEDS: ATORVASTATIN 40 MG TAB PO SCH (21:01)
[2021-05-06] MEDS: CHOLECALCIFEROL 1,000 UNITS 25 MCG TAB PO SCH (21:02)
[2021-05-06] MEDS ORDERED: FUROSEMIDE 40 MG in SYRINGE 0 ML IV ONE (23:15)
[2021-05-07] MEDS: HEPARIN SOD 5,000 UNIT/0.5 ML VIAL SQ SCH ×3 (06:16→21:24)
[2021-05-07 06:19] LABS: Hematocrit (blood only) 37.2 % (37-47); Hemoglobin 12.7 g/dL (12.0-16.0); Mean Corpuscular Hemoglobin 30.3 pg (25-34); Mean Corpuscular Hgb Conc 34.1 g/dL (32-36); Mean Corpuscular Volume 88.8 fL (80-100); Mean Platelet Volume 10.4 fL (7.4-10.4); Platelet Count 350 K/uL (130-400); RDW Coefficient of Variation 12.3 % (11.5-14.5); RDW Standard Deviation 39.3 fL (36.4-46.3); Red Blood Count 4.19 M/uL (4.2-5.4); White Blood Count 23.42 K/uL (4.8-10.8)
[2021-05-07 06:38] LABS: BUN Creatinine Ratio 26.6 (10-20); Calcium 8.9 mg/dl (8.5-10.1); Creatinine Clr Calc Pharmacy 40.5 ml/min; Est GFR (African American) 34.5 ml/min; Est GFR (Non-African American) 29.8 ml/min; Potassium 4.3 mmol/L (3.5-5.1)
[2021-05-07] MEDS ORDERED: INSULIN ASPART 100 UNITS/ML 3 ML PEN SC SCH (07:30)
[2021-05-07] MEDS: BENZONATATE 100 MG CAPSULE PO SCH ×3 (08:01→21:23)
[2021-05-07] MEDS: guaiFENesin 600 MG TABCR PO SCH ×2 (08:02→21:23)
[2021-05-07] MEDS: dexAMETHasone 6 MG in SYRINGE 0 ML IV SCH (08:02)
[2021-05-07] MEDS: FAMOTIDINE 20 MG TAB PO SCH (08:02)
[2021-05-07] MEDS: INSULIN ASPART 100 UNITS/ML 3 ML PEN SC SCH ×4 (08:21→21:45)
[2021-05-07] MEDS ORDERED: INSULIN HUMAN NPH SC SCH (09:00)
[2021-05-07] MEDS: POLYETHYLENE (MIRALAX) 17 GM PACK PO PRN (12:35)
--- NOTE | 2021-05-07 12:53 | Pharmacy Report ---
Pharmacy Glycemic Short Note 2 - Date of Service May 07, 2021 - Glycemic Short BSG Results (Last 24 hours): 05/06/21 05/06/21 05/07/21 17:03 20:46 06:01 Glucose 103 H POC Glucose 236 H 233 H 05/07/21 05/07/21 07:57 10:41 Glucose POC Glucose 115 H 176 H OUTPATIENT ANTIDIABETIC REGIMEN: * Medtronic Insulin pump * Basal rate: 1.8 units/hr * Patient does not know other settings ASSESSMENT: 05/07 * 127 units SQ given over previous 24 hours with diet * Fasting remains at goal, continue current lantus. * Prandial BSGs continued to be elevated yesterday throughout day, increased NPH this morning with dexamethasone and tightened evening carb ratio * Dexamethasone/NPH set to discontinue before tomorrow's doses, regimen will need re-evaluated (?transition back to pump if supplies available) as steroid effects start to wear off 05/06 * 95 units SQ given over previous 24 hours with diet * Fasting BSG 111 mg/dL is at goal. Will continue current lantus + NPH regimen with dexamethasone administration * Lunch BSG elevated, however breakfast was late ~0945, did tighten carb ratio with lunch as dinner tends to be highest BSG. 05/05 * 76 units SQ given over last 24 hours while tolerating a diet however only consumed 2 of 3 meals per documentation * Fasting BSG at goal this AM (FBS 122) w/ 15 units Lantus + 25 units NPH given in last 24 hrs * Post-prandial BSGs only controlled on 1 of 3 checks yesterday. Will increase AM NPH dose to help. Will continue current Novolog CR and CF * Dexamethasone 6mg IV Q AM remains ordered for next 2 days before d/c 05/04 * 75 units SQ given over last 24 hours while tolerating a diet * Fasting BSG 96-102 this AM w/ 15 units Lantus + 25 units NPH given in last 24 hrs * Post-prandial BSGs controlled on 2 of 3 checks yesterday. Will increase prandial insulin doses w/ breakfast and lunch and dinner BSGs had been elevated. Will continue to utilize lower Novolog doses w/ dinner and HS checks as insulin sensitivity improves second half of the day. 05/03 * 116 units SQ insulin given over last 24 hrs while tolerating a diet * Fasting BSG 106-135 this AM w/ 20 units Lantus + 25 units NPH given in last 24 hrs * Patient's fasting BSG much improved since yesterday. Will titrate Lantus dose down slightly as we have not yet achieved steady state on current dose and BSG may continue to fall at current dose. Patient's diet is also poor this AM, again warranting reconsideration of basal needs if this continues * Post-prandial BSGs fairly well controlled yesterday with current Novolog CF and CR. Will decrease dinner and HS doses however as BSGs much lower at this time of day. * Day dexamethasone IV 05/01: * Joo received 51 units of insulin yesterday (25 units of basal and 26 units of bolus) and had adequate glycemic control with the exception of an episode of hypoglycemia around dinnertime (BSG 56 mg/dL). * Fasting BSG continues to trend upward. I will add on 15 units of Lantus. Conservative dose selected since patient is also on NPH to cover for steroid induced hyperglycemia. * Novolog was loosened significantly last evening (carb ratio of 2-> 6). I will trial carb ratio of 4. PLAN FOR INPATIENT GLYCEMIC CONTROL: Basal - increase * Lantus 15 units SQ daily w/ dinner * increase NPH to 35 units SQ w/ AM dexamethasone 6mg IV Bolus - increase dinner/bedtime doses * Novolog SQ ACHS * Goal range: 120 - 150 mg/dL * Correction factor: 10 mg/dL/unit w/ breakfast and lunch; 15mg/dL/unit w/ dinner and HS * Carb ratio: 1 unit per 3.5 grams CHO consumed w/ breakfast; 1 units per 3.5 grams CHO consumed w/ lunch; 1 unit per 4.5 grams CHO consumed w/ dinner and HS DISCHARGE RECOMMENDATIONS: * to be determined
[2021-05-07] MEDS: INSULIN GLARGINE SOLOSTAR 100 UNITS/ML 3 ML PEN SC SCH (16:56)
--- NOTE | 2021-05-07 19:34 | Hospitalist Progress Note ---
Date of Service May 07, 2021 Assessment & Plan (1) COVID-19: Plan: This is a 50yo F with a PMH of DM II, CKD III, HLD and other medical problems listed below who presents with viral symptoms x 6 days and was found to have covid-19 positive PCR test. COVID-19 infection with pneumonia CXR with interstitial airspace opacities are seen throughout both lungs. Correlate clinically for evidence of an infectious/inflammatory pneumonitis No leukocytosis. Procalcitonin normal - no indication for antibiotics at this time No evidence of anaplasma on peripheral smear, lyme serology negative Continue supportive care with dexamethasone CRP level was 8.69 and prolactin normal Repeat chest x-ray showed worsening of pneumonia Tocilizumab was administered Received Lasix IV 40mg early this morning and we will give an additional 40mg later Clinically improved and continue to require 3L NC nasal cannula Covid 19 isolation precautions Will consider to get a 2 step on discharge Continue monitor closely (2) Acute kidney injury superimposed on chronic kidney disease: Plan: Cr elevated at 3.34 in setting of dehydration (baseline Cr ~mid-2s) Gentle hydration, avoid nephrotoxic agents Monitor daily BMP -BUN and creatinine has been improving Advised to drink more fluid and will continue intravenous fluid Kidney function has been improving IV fluid has been stopped and she received 60 of intravenous Lasix this morning We'll monitor PRP-remains stable Check PRP and will administer Lasix to keep her on the dry side Monitor PRP-stable at 1.91 (3) DM II (diabetes mellitus, type II), controlled: Plan: A1c 7.4 in March 2021 Uses insulin pump - almost out of medication but son to bring from home (will send to pharmacy for labeling) Glycemic consult placed Blood sugar has been uncontrolled due to dexamethasone Patient wants to use the insulin pump Blood sugar minimally elevated-managed by glycemic pharmacist (4) Hyperlipidemia: Plan: Continue statin DVT Ppx: SQ heparin Code status: FULL Disposition Continue monitor closely in the PCU Admission and Anticipated Discharge Date Admission Date: April 27, 2021 Subjective Patient was seen and examined for follow-up of shortness of breath due to COVID- 19 Lying in bed with no acute respiratory distress She said that she feels much better She said that she was able to wash herself with no problem she continues to require 3 L NC oxygen She is very anxious to go home with her She said that she is ready to leave Denies any chest pain, palpitation, dizziness, and fever. Physical Exam Physical Exam: General- No acute distress Head- atraumatic Eyes- PERRL, EOMI, ENT- oropharynx clear Neck- supple, no JVD Lungs- +diminished BS Heart- regular rhythm; no murmur Abdomen- normal bowel sounds, soft, nontender Extremities- no calf tenderness Neuro- alert, oriented x 3; PERRL, EOMI; no facial palsy; no dysarthria Skin- warm & dry Results & Data Results & Data ([facility]) Vital Signs (Past 12 Hours) Vital Signs Pulse Pulse Resp Pulse Ox Pulse Ox 05/07/21 16:00 85 05/07/21 10:11 76 05/07/21 10:00 96 H 18 95 91
[2021-05-07] MEDS ORDERED: FUROSEMIDE 40 MG in SYRINGE 0 ML IV ONE (20:00)
[2021-05-07] MEDS: ATORVASTATIN 40 MG TAB PO SCH (21:23)
[2021-05-07] MEDS: CHOLECALCIFEROL 1,000 UNITS 25 MCG TAB PO SCH (21:23)
[2021-05-08] MEDS: HEPARIN SOD 5,000 UNIT/0.5 ML VIAL SQ SCH ×3 (05:40→15:39)
[2021-05-08] MEDS: FAMOTIDINE 20 MG TAB PO SCH (08:38)
[2021-05-08] MEDS: BENZONATATE 100 MG CAPSULE PO SCH ×2 (08:38→14:00)
[2021-05-08] MEDS: INSULIN ASPART 100 UNITS/ML 3 ML PEN SC SCH ×4 (08:38→17:00)
[2021-05-08] MEDS: guaiFENesin 600 MG TABCR PO SCH (08:38)
[2021-05-08 09:09] LABS: Hematocrit (blood only) 40.2 % (37-47); Hemoglobin 13.8 g/dL (12.0-16.0); Mean Corpuscular Hemoglobin 30.7 pg (25-34); Mean Corpuscular Hgb Conc 34.3 g/dL (32-36); Mean Corpuscular Volume 89.3 fL (80-100); Mean Platelet Volume 10.7 fL (7.4-10.4); Platelet Count 404 K/uL (130-400); RDW Coefficient of Variation 12.5 % (11.5-14.5); RDW Standard Deviation 40.2 fL (36.4-46.3); White Blood Count 26.82 K/uL (4.8-10.8)
[2021-05-08 09:25] LABS: Calcium 9.1 mg/dl (8.5-10.1); Creatinine Clr Calc Pharmacy 31.4 ml/min; Est GFR (African American) 26.2 ml/min; Est GFR (Non-African American) 22.6 ml/min; Potassium 4.2 mmol/L (3.5-5.1)
[2021-05-08] MEDS: POLYETHYLENE (MIRALAX) 17 GM PACK PO PRN (12:19)
--- NOTE | 2021-05-08 14:58 | Pharmacy Report ---
Pharmacy Glycemic Short Note 2 - Date of Service May 08, 2021 - Glycemic Short BSG Results (Last 24 hours): 05/07/21 05/07/21 05/08/21 16:49 20:30 08:14 Glucose POC Glucose 188 H 296 H 199 H 05/08/21 05/08/21 08:46 11:48 Glucose 221 H POC Glucose 192 H OUTPATIENT ANTIDIABETIC REGIMEN: * [employer] Insulin pump * Basal rate: 1.8 units/hr * Patient does not know other settings ASSESSMENT: 05/08/21 * BSGs yesterday were [phone] mg/dL. Fasting today was 199 mg/dL. * Yesterday was last day of dexamethasone. * Spoke with patient via telephone. She would like to restart pump. * Okay to restart pump at any time today. She wants to charge pump and should be able to put pump on prior to 1700 today (last dose of Lantus was 1700 yesterday). * Otherwise, if not going home, can continue current regimen. 05/07 * 127 units SQ given over previous 24 hours with diet * Fasting remains at goal, continue current lantus. * Prandial BSGs continued to be elevated yesterday throughout day, increased NPH this morning with dexamethasone and tightened evening carb ratio * Dexamethasone/NPH set to discontinue before tomorrow's doses, regimen will need re-evaluated (?transition back to pump if supplies available) as steroid effects start to wear off 05/06 * 95 units SQ given over previous 24 hours with diet * Fasting BSG 111 mg/dL is at goal. Will continue current lantus + NPH regimen with dexamethasone administration * Lunch BSG elevated, however breakfast was late ~0945, did tighten carb ratio with lunch as dinner tends to be highest BSG. 05/05 * 76 units SQ given over last 24 hours while tolerating a diet however only consumed 2 of 3 meals per documentation * Fasting BSG at goal this AM (FBS 122) w/ 15 units Lantus + 25 units NPH given in last 24 hrs * Post-prandial BSGs only controlled on 1 of 3 checks yesterday. Will increase AM NPH dose to help. Will continue current Novolog CR and CF * Dexamethasone 6mg IV Q AM remains ordered for next 2 days before d/c 05/04 * 75 units SQ given over last 24 hours while tolerating a diet * Fasting BSG 96-102 this AM w/ 15 units Lantus + 25 units NPH given in last 24 hrs * Post-prandial BSGs controlled on 2 of 3 checks yesterday. Will increase prandial insulin doses w/ breakfast and lunch and dinner BSGs had been elevated. Will continue to utilize lower Novolog doses w/ dinner and HS checks as insulin sensitivity improves second half of the day. 05/03 * 116 units SQ insulin given over last 24 hrs while tolerating a diet * Fasting BSG 106-135 this AM w/ 20 units Lantus + 25 units NPH given in last 24 hrs * Patient's fasting BSG much improved since yesterday. Will titrate Lantus dose down slightly as we have not yet achieved steady state on current dose and BSG may continue to fall at current dose. Patient's diet is also poor this AM, again warranting reconsideration of basal needs if this continues * Post-prandial BSGs fairly well controlled yesterday with current Novolog CF and CR. Will decrease dinner and HS doses however as BSGs much lower at this time of day. * Day dexamethasone IV 05/01: * Joo received 51 units of insulin yesterday (25 units of basal and 26 units of bolus) and had adequate glycemic control with the exception of an episode of hypoglycemia around dinnertime (BSG 56 mg/dL). * Fasting BSG continues to trend upward. I will add on 15 units of Lantus. Conservative dose selected since patient is also on NPH to cover for steroid induced hyperglycemia. * Novolog was loosened significantly last evening (carb ratio of 2-> 6). I will trial carb ratio of 4. PLAN FOR INPATIENT GLYCEMIC CONTROL: Basal - continue * Lantus 15 units SQ daily w/ dinner Bolus - * Novolog SQ ACHS * Goal range: 120 - 150 mg/dL * Correction factor: 15 mg/dL/unit * Carb ratio: 1 unit per 5 grams CHO consumed DISCHARGE RECOMMENDATIONS: * Recommend patient restart insulin pump. * If not able to be restarted by ~1800 tonight, recommend receiving small dose of Lantus prior to discharge to prevent any lapse in insulin therapy. Could receive Lantus 5 units prior to discharge then place pump on tonight once it is charged. Informed patient on this.
--- NOTE | 2021-05-08 17:20 | Discharge Summary ---
Date of Service May 08, 2021 Admission HPI Per Admitting Provider This is a 50yo F with a PMH of DM II, CKD III, HLD and other medical problems listed below who presents with viral symptoms x 6 days. Patient endorses subjective fever, chills nausea, vomiting and diarrhea. Also endorsing decreased PO intake. Was likely exposed at [employer] 2 Sundays ago. Patient has not received covid vaccine. Went to [facility] ED on Monday for similar symptoms but declined Covid-19 testing at that time. Denies cough, chest pain, abdominal pain, dysuria or constipation. Wears an insulin pump and is almost out of insulin. Son to bring in more medication later today. Admission Exam Per Admitting Provider General- No acute distress Head- atraumatic Eyes- PERRL, EOMI, ENT- oropharynx clear Neck- supple, no JVD Lungs- +diminished BS Heart- regular rhythm; no murmur Abdomen- normal bowel sounds, soft, nontender Extremities- no calf tenderness Neuro- alert, oriented x 3; PERRL, EOMI; no facial palsy; no dysarthria Skin- warm & dry Principal Diagnosis COVID-19: Acute kidney injury superimposed on chronic kidney disease: DM II (diabetes mellitus, type II), controlled: Hyperlipidemia: Discharge Exam General- No acute distress Head- atraumatic Eyes- PERRL, EOMI, ENT- oropharynx clear Neck- supple, no JVD Lungs- +diminished BS Heart- regular rhythm; no murmur Abdomen- normal bowel sounds, soft, nontender Extremities- no calf tenderness Neuro- alert, oriented x 3; PERRL, EOMI; no facial palsy; no dysarthria Skin- warm & dry Discharge Data Allergies Allergy/AdvReac Type Severity Reaction Status Date / Time No Known Allergies Allergy Verified 04/27/21 13:07 Consultations 04/27/21 12:33 ED Decision to Admit Stat 04/30/21 11:57 Consult Pulmonology Routine Ordered Studies SINGLE VIEW CHEST CLINICAL HISTORY: Pneumonia. FINDINGS: 2 AP, portable, upright chest radiographs are compared to study dated 04/27/2021. The examination is degraded by portable technique and apical lordotic positioning. The cardiomediastinal silhouette is unremarkable. Multifocal airspace consolidation is seen throughout both lungs. This has significantly progressed as compared to 04/27/2021. No large pleural effusion or pneumothorax is seen. The bony thorax is grossly intact. IMPRESSION: Multifocal airspace consolidation has significantly progressed as compared to 04/27/2021. ACT 112: Negative or not required by law. Electronically signed by: Isai Johnson M.D. 04/30/2021 9:58 AM Dictated: 04/30/21 [id number]: 04/30/21 09 SINGLE VIEW CHEST CLINICAL HISTORY: Atypical chest pain. Cough and fever. FINDINGS: An AP, portable, upright chest radiograph is compared to study dated 04/25/2021. The cardiomediastinal silhouette is unremarkable. Interstitial airspace opacities are seen throughout both lungs. No large pleural effusion or pneumothorax is seen. The bony thorax is grossly intact. IMPRESSION: Interstitial airspace opacities are seen throughout both lungs. Correlate clinically for evidence of an infectious/inflammatory pneumonitis. Radiographic follow-up to resolution is recommended. ACT 112: Negative or not required by law. Electronically signed by: Isai Johnson M.D. 04/27/2021 11:26 AM Dictated: 04/27/21 1125Transcribed: 04/27/21 1125 Hospital Course (1) COVID-19: This is a 50yo F with a PMH of DM II, CKD III, HLD and other medical problems listed below who presents with viral symptoms x 6 days and was found to have covid-19 positive PCR test. COVID-19 infection with pneumonia CXR with interstitial airspace opacities are seen throughout both lungs. Correlate clinically for evidence of an infectious/inflammatory pneumonitis No leukocytosis. Procalcitonin normal - no indication for antibiotics at this time No evidence of anaplasma on peripheral smear, lyme serology negative Continue supportive care with dexamethasone CRP level was 8.69 and prolactin normal Repeat chest x-ray showed worsening of pneumonia Tocilizumab was administered Received Lasix IV 40mg early this morning and we will give an additional 40mg later Clinically improved and continue to require 3L NC nasal cannula Covid 19 isolation precautions 2 step exercise done today and pt will require 2L nasal canula continuously Clinically improves (2) Acute kidney injury superimposed on chronic kidney disease: Cr elevated at 3.34 in setting of dehydration (baseline Cr ~mid-2s) Gentle hydration, avoid nephrotoxic agents Monitor daily BMP -BUN and creatinine has been improving Advised to drink more fluid and will continue intravenous fluid Kidney function has been improving IV fluid has been stopped and she received 60 of intravenous Lasix this morning We'll monitor PRP-remains stable Check PRP and will administer Lasix to keep her on the dry side Monitor PRP-stable at 1.91 (3) DM II (diabetes mellitus, type II), controlled: A1c 7.4 in March 2021 Uses insulin pump - almost out of medication but son to bring from home (will send to pharmacy for labeling) Glycemic consult placed Blood sugar has been uncontrolled due to dexamethasone Patient wants to use the insulin pump Blood sugar minimally elevated-managed by glycemic pharmacist (4) Hyperlipidemia: Continue statin DVT Ppx: SQ heparin Code status: FULL Disposition Continue monitor closely in the PCU Total Time Total Time Spent Total Time Spent (In Minutes): 35 minutes Discharge Plan Discharge Items Patient Disposition: Home - Self-Care Reason For Visit: COVID,LIZZY ON CKD Discharge Diagnosis: COVID-19: Acute kidney injury superimposed on chronic kidney disease: DM II (diabetes mellitus, type II), controlled: Hyperlipidemia: Activity: Resume your previous activity Non-emergency contact: Primary Care Provider Call non-emergency contact if: you have any medication questions Follow-up/Referrals: Natasha Angel, [Primary Care Provider] - Diet: Carb Consistent or DM2 Addtl Attending Provider Instructions: Follow up with your primary care provider (office will call you for the appointment ) Continue oxygen supplement with 2Lite Nasal Canula continuously Your white count was elevated, mostly due to the steroid Your provider will check your CBC in 1 week to monitor your white count Continue to wear mask and practice social distance Follow up a healthy diabetes diet and limited concentrated sweet intake Continue incentive spirometry Seek medical attention if shortness worsening Home Isolation COVID-19 Instructions The following information about Home Isolation is from the CDC Website: https://www.cdc.gov/coronavirus/2019-ncov/hcp/nzdaajcu-fwrrave-svugvd.html Stay home except to get medical care People who are mildly ill with COVID-19 are able to isolate at home during their illness. You should restrict activities outside your home, except for getting medical care. Do not go to work, school, or public areas. Avoid using public transportation, ride-sharing, or taxis. Separate yourself from other people and animals in your home People: As much as possible, you should stay in a specific room and away from other people in your home. Also, you should use a separate bathroom, if availab le. Animals: You should restrict contact with pets and other animals while you are sick with COVID-19, just like you would around other people. Although there have not been reports of pets or other animals becoming sick with COVID-19, it is still recommended that people sick with COVID-19 limit contact with animals until more information is known about the virus. When possible, have another member of your household care for your animals while you are sick. If you are sick with COVID-19, avoid contact with your pet, including petting, snuggling, being kissed or licked, and sharing food. If you must care for your pet or be around animals while you are sick, wash your hands before and after you interact with pets and wear a face mask. Call ahead before visiting your doctor If you have a medical appointment, call the healthcare provider and tell them that you have or may have COVID-19. This will help the healthcare providers office take steps to keep other people from getting infected or exposed. Wear a face mask You should wear a face mask when you are around other people (e.g., sharing a room or vehicle) or pets and before you enter a healthcare providers office. If you are not able to wear a face mask (for example, because it causes trouble breathing), then people who live with you should not stay in the same room with you, or they should wear a face mask if they enter your room. Cover your coughs and sneezes Cover your mouth and nose with a tissue when you cough or sneeze. Throw used tissues in a lined trash can. Immediately wash your hands with soap and water for at least 20 seconds or, if soap and water are not available, clean your hands with an alcohol-based hand divine healer that contains at least 60% alcohol. Clean your hands often Wash your hands often with soap and water for at least 20 seconds, especially after blowing your nose, coughing, or sneezing; going to the bathroom; and before eating or preparing food. If soap and water are not readily available, use an alcohol-based hand divine healer with at least 60% alcohol, covering all surfaces of your hands and rubbing them together until they feel dry. Soap and water are the best option if hands are visibly dirty. Avoid touching your eyes, nose, and mouth with unwashed hands. Avoid sharing personal household items You should not share dishes, drinking glasses, cups, eating utensils, towels, or bedding with other people or pets in your home. After using these items, they should be washed thoroughly with soap and water. Clean all high-touch surfaces everyday High touch surfaces include counters, tabletops, doorknobs, bathroom fixtures, toilets, phones, keyboards, tablets, and bedside tables. Also, clean any surfaces that may have blood, stool, or body fluids on them. Use a household cleaning spray or wipe, according to the label instructions. Labels contain instructions for safe and effective use of the cleaning product including precautions you should take when applying the product, such as wearing gloves an d making sure you have good ventilation during use of the product. Monitor your symptoms Seek prompt medical attention if your illness is worsening (e.g., difficulty breathing).Beforeseeking care, call your healthcare provider and tell them that you have, or are being evaluated for, COVID-19. Put on a face mask before you enter the facility. These steps will help the healthcare providers office to keep other people in the office or waiting room from getting infected or exposed. Ask your healthcare provider to call the local or state health department. Persons who are placed under active monitoring or facilitated self- monitoring should follow instructions provided by their local health department or occupational health professionals, as appropriate. When working with your local health department check their available hours. If you have a medical emergency and need to call 911, notify the dispatch personnel that you have, or are being evaluated for COVID-19. If possible, put on a face mask before emergency medical services arrive. Discontinuing home isolation Patients with confirmed COVID-19 should remain under home isolation precautions until the risk of secondary transmission to others is thought to be low. The decision to discontinue home isolation precautions should be made on a [id number] basis, in consultation with healthcare providers and state and local health departments. Coronavirus disease 2019 (COVID-19) is a virus that causes a respiratory illness. It is caused by a coronavirus called 2019 novel coronavirus (2019- nCoV). There are many types of coronavirus. Coronaviruses are a very common cause of bronchitis. They may sometimes cause lung infection(pneumonia). Symptoms can range from mild to severe respiratory illness. These viruses are also foundin some animals. COVID-19 was first found in people in [facility], in late 2019. In 2020, several cases of COVID-19 have been confirmed in the [place] Public health officials are working to find the source. How the virus spreads is not yet fully known. It may be spread through droplets of fluid that a person coughs or sneezes into the air. It may be spread if you touch a surface with virus on it, such as a handle or object, and then touch your mouth. What are the symptoms of COVID-19? Some people have no symptoms or mild symptoms. Symptoms may appear 2 to 14 days after contact with the virus. Symptoms can include: Fever Coughing Trouble breathing What are possible complications from COVID-19? In many cases, this virus can cause infection (pneumonia) in both lungs. In some cases, this can cause . How is COVID-19 diagnosed? Your healthcare provider will ask about your symptoms. He or she will also ask about your recent travel and contact with sick people. Testing for the virus is only done through the CDC. If yourhealthcare provider thinks you may have COVID- 19, he or she will work with your local health department and the CDC on testing. Follow all instructions from your healthcare provider. COVID-19 is diagnosed by: Nasal and throat swab. A cotton-tipped swab is wiped inside your nose or throat. This is done to check for viruses in your nasal mucus. Sputum culture. A small sample of mucus coughed from your lungs (sputum) is collected if you have a cough. It is checked for the virus. How is COVID-19 treated? There is currently no medicine to treat the virus. Treatment is done to help your body while it fights the virus. This is known as supportive care. Supportive care may include: Pain medicine. These include acetaminophen and ibuprofen. They are used to help ease pain and reduce fever. Bed rest. This helps your body fight the illness. For severe illness, you may need to stay in the hospital. Care during severe illness may include: IV (intravenous) fluids.These are given through a vein to help keep your body hydrated. Oxygen. Supplemental oxygen or ventilation with a breathing machine (ventilator) may be given. This is done to keep enough oxygen in your body. Are you at risk for COVID-19? If youve been to a place where people have been sick with this virus, you are at risk for infection. You are at risk if you: Recently traveled to an affected area Had contact with a sick person who recently traveled to this area Had contact with a person who was diagnosed with COVID-19 How can COVID-19 be prevented? There is no vaccine yet. The best prevention is to not have contact with the virus. The CDC advises that people should not travel to areas where there are COVID-19 outbreaks right now for any reason that is not urgent. To help prevent spreading the infection, wash your hands often, or use an alcohol-basedhand divine healer. If you are in an area with COVID-19: Wash your hands often. Or use an alcohol-based hand divine healer often. Only touch your eyes, nose, or mouth with clean hands. Dont have contact with people who are sick. Follow local instructions about being in public. For example, you may be told to not use public transport for a period of time. Stay away from markets that have live or animals. Wash your hands after touching any animals. Don't touch animals that may be sick. Dont share eating or drinking tools with sick people. Dont kiss someone who is sick. Clean surfaces often with disinfectant. If you were in an area with COVID-19 in the last 14 days: Call your healthcare provider. He or she can talk with local health staff to see what action may be needed. Follow all instructions from your provider. Take your temperature every morning and evening for at least 14 days. This is to check for fever. Keep a record of the readings. Keep watch for symptoms of the virus. Tell your provider right away if you have symptoms. If you were in an area with COVID-19 and have a fever or other symptoms: Dont panic. Keep in mind that other illnesses can cause similar symptoms. Stay away from work, school, and public places. Limit physical contact with family members. Don't kiss anyone or share eating or drinking utensils. Clean surfaces you touch with disinfectant. This is to help prevent the virus from spreading. Call your healthcare provider. Explain that you have been exposed to COVID-19 and have symptoms. Do this before going to any hospital. Wait for instructions. Keep in mind that healthcare staff may wear protective equipment such as masks, gowns, gloves, and eye protection. You may be put in a separate room. This is to prevent the possible virus from spreading. Tell the healthcare staff about recent travel. This includes local travel on public transport. Staff may need to find other people you have been in contact with. Follow all instructions the healthcare staff give you. If you have been diagnosed with COVID-19 Follow all instructions from your healthcare provider. Dont leave your home, except to get medical care. Call your healthcare providers office before going. They can prepare and give you instructions. This will help prevent the virus from spreading. Dont go to work, school, or public areas. Dont use public transport or taxis. Stay away from other people in your home. Have them wear face masks around you. Dont share household items or food. Wear a face mask if you can. This includes at home or in a medical facility. Cover your face with a tissue when you cough or sneeze. Throw the tissue away. Wash your hands. Wash your hands often. Caregivers should: Follow all instructions from healthcare staff. Wear a face mask and protective clothing as advised. Wash hands often. Keep track of the sick persons symptoms. Clean surfaces, fabrics, and laundry thoroughly. Keep other people away from the sick person. When to call your healthcare provider Call your healthcare provider: If youve recently traveled and have symptoms If you have been diagnosed with COVID-19 and your symptoms are worse To learn more To find out more about COVID-19, visit the CDC website at www.cdc.gov/coronavirus/2019-ncov/index.html. [employer]. [address] [place] [address]. All rights reserved. This information is not intended as a substitute for professional medical care. Always follow your healthcare professional's instructions. This information has been adapted from [employer] Pending Studies at Discharge: No Stand-Alone Forms: My [employer], Smoking Cessation Medications and DC Order Prescriptions: New guaifenesin 200 mg tablet 200 mg PO Q6H PRN (Reason: congestion) Qty: 30 RF: 0 Continued selenium 200 mcg Tablet 200 mcg PO HS RF: 0 atorvastatin 40 mg tablet 40 mg PO HS RF: 0 ascorbic acid (vitamin C) [Vitamin C] 1,000 mg Tablet 1 g PO HS RF: 0 famotidine 20 mg tablet 20 mg PO BID RF: 0 insulin aspart U-100 100 unit/mL solution 0 unit continuous subcutaneous infusion CONTINOUS RF: 0 diphenhydramine HCl [Benadryl] 25 mg Capsule 50 mg PO HS RF: 0 lisinopril 5 mg tablet 5 mg PO HS RF: 0 cholecalciferol (vitamin D3) [Vitamin D3] 25 mcg (1,000 unit) Capsule 25 mcg PO HS RF: 0 furosemide [Lasix] 20 mg tablet 10 - 20 mg PO DAILY PRN (Reason: swelling) RF: 0 Discharge Orders: Discharge Order (Routine); Ordered 05/08/21 Ordered By: Susana Jacobs/Other Patient Handouts: A1C, Managing Type 2 Diabetes Admission Data Admit Date/Time: 04/27/21 12:59 Attending Provider: Susana Salas Admit Provider: Wilmer Jane Primary Care Provider: Natasha Angel Other Providers: Adonis Allison Vyacheslav ; Wilmer Jane Other Interventions: Discharge Summary Assessment (RN) Last Done: 05/08/21 17:27
[2021-05-08] MEDS: INSULIN GLARGINE SOLOSTAR 100 UNITS/ML 3 ML PEN SC SCH (17:48)
== END 2021-05-08 18:21 | disposition home or self-care (01) | DRG 177 ==
LOC: ED 09:15 → 2E 12:59 → SUATTDRO 12:59 → 2E 14:55